=== PATIENT | female | born 1935 | race Caucasian/White ===

== ENCOUNTER 2016-11-02 10:38 | Emergency (ER) | payer MEDICARE ==
--- NOTE | 2016-11-02 12:16 | RAD ---
Indication: LEFT ilium intratrochanteric tenderness post fall. Difficulty bearing weight. Comparison: October 23, 2016 CT. Technique: AP pelvis and AP and frog-leg lateral views LEFT hip. Report: The LEFT hip is normally located and demonstrates mild osteophytosis and superior joint space narrowing. Mildly impacted subcapital fracture of the LEFT femoral neck. Negative for pelvic fracture or joint diastases. Prominence of soft tissues surrounding the LEFT hip suggest presence of a joint effusion. 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 IMPRESSION: Mildly impacted subcapital fracture of the LEFT femoral neck.
[2016-11-02] MEDS ORDERED: HYDROcodone/ACETAMIN 5-325 MG* 1 TAB PO ONE (12:55)
[2016-11-02 13:02] VITALS: BP 94/60
--- NOTE | 2016-11-02 15:39 | UC ---
Sofia Hartley Claudia, scribed for Oma Tobin DO on 11/02/16 at 1126 . Hip/Pelvis Pain - HPI Summary HPI Summary: 81 year old female presents to the ED with left hip pain post mechanical fall. Pt notes she slipped off her her seat pillow and fell onto the floor with her left side yesterday am. She notes that her hip pain began post accident. She denies any other pain including knee pain or any pain to the upper leg. She admits to the pain as initially an 8-9/10. Pt also notes that the pain is aggravated with movement. Pt denies CP, SOB, dysuria, nausea, fever, chills and nausea. - History Of Current Complaint Stated Complaint: HIP INJURY Time Seen by Provider: 11/02/16 11:19 Hx Obtained From: Patient Onset/Duration: Sudden Onset - post fall yesterday am, Still Present Timing: Constant Severity Initially: Severe Severity Currently: Moderate Location: Discrete At: - left hip Character Of Pain: Aching Aggravating Factor(s): Nothing Alleviating Factor(s): Nothing Associated Signs And Symptoms: Positive: Other - left hip pain. Negative: Fever , Weakness, Dizziness, Syncope, Abdominal Pain, Knee Pain - Allergies/Home Medications Allergies/Adverse Reactions: Allergies Allergy/AdvReac Type Severity Reaction Status Date / Time Penicillins [PCN] Allergy Severe Anaphylatic Verified 11/02/16 13:51 Shock PMH/Surg Hx/FS Hx/Imm Hx Previously Healthy: Yes Endocrine History Of: Reports: Thyroid Disease - hypo Denies: Diabetes Cardiovascular History Of: Reports: Hypertension Denies: Cardiac Disorders, Pacemaker/ICD Respiratory History Of: Denies: COPD, Asthma GI/ History Of: Denies: Ulcer, Renal Disease - Surgical History Surgical History: Yes Surgery Procedure, Year, and Place: R knee surgery 2006. Multiple back surgeries. RT HIP AND RT KNEE REPLACEMENT. Appendectomy. T&A - Family History Known Family History: Negative: Cardiac Disease, Hypertension, Diabetes Family History: FHx of Breast Cancer - Social History Occupation: Retired Lives: Alone Alcohol Use: Weekly Substance Use Type: None Smoking Status (MU): Never Smoked Tobacco Have You Smoked in the Last Year: No - Immunization History Most Recent Influenza Vaccination: Follow up with Dr Garvin Most Recent Tetanus Shot: Follow up with Dr Garvin [phone] Most Recent Pneumonia Vaccination: Follow up with Dr Garvin Review of Systems Constitutional: Negative Skin: Negative Eyes: Negative ENT: Negative Respiratory: Negative Cardiovascular: Negative Gastrointestinal: Negative Genitourinary: Negative Motor: Negative Neurovascular: Negative Musculoskeletal: Other: - left hip pain Neurological: Negative Psychological: Negative All Other Systems Reviewed And Are Negative: Yes Physical Exam Triage Information Reviewed: Yes Appearance: Well-Appearing, No Pain Distress, Well-Nourished Vital Signs: Initial Vital Signs Temp 97.1 F 11/02/16 11:12 Pulse 82 11/02/16 11:12 Resp 16 11/02/16 11:12 BP 81/53 11/02/16 11:12 Pulse Ox 96 11/02/16 11:12 Vital Signs Reviewed: Yes Eyes: Positive: Conjunctiva Clear. Negative: Conjunctiva Inflamed ENT Exam: Normal ENT: Positive: Hearing grossly normal. Negative: Muffled/hoarse voice Neck exam: Normal Neck: Positive: Supple, Nontender Respiratory Exam: Normal Respiratory: Positive: Lungs clear, Normal breath sounds, No respiratory distress, No accessory muscle use Cardiovascular Exam: Normal Cardiovascular: Positive: RRR, No Murmur Abdominal Exam: Normal Abdomen Description: Positive: Nontender, Soft. Negative: Distended, Guarding Musculoskeletal: Positive: Other: - tender at left greater trochanter, iliac crest Neurological Exam: Normal Neurological: Positive: Alert, Muscle Tone Normal Psychological Exam: Normal Psychological: Positive: Age Appropriate Behavior Skin Exam: Normal Diagnostics - Radiology HIP XRAY Xray Interpretation: Positive (See Comments) - MILDLY IMPACTED SUBCAPITAL FRACTURE OF THE LEFT FEMORAL NECK Radiology Interpretation Completed By: Radiologist Hip Injury Course/Dx - Differential Dx/Diagnosis Differential Diagnosis/HQI/PQRI: Contusion, Fracture, Sprain, Strain Provider Diagnoses: hip fx Discharge - Discharge Plan Condition: Stable Disposition: [facility] Referrals: Ruben Garvin MD [Primary Care Provider] - The documentation as recorded by the Sofia hastings Claudia accurately reflects the service I personally performed and the decisions made by , Oma Tobin DO.
== END 2016-11-02 13:19 | disposition short-term general hospital (02) ==
LOC: UCEAST 10:38
DX: S72.012A Unspecified intracapsular fracture of left femur, initial encounter for closed fracture (principal); W07.XXXA Fall from chair, initial encounter; Y93.9 Activity, unspecified; Y92.9 Unspecified place or not applicable; Z88.0 Allergy status to penicillin; Z96.641 Presence of right artificial hip joint; Z96.651 Presence of right artificial knee joint
CPT/HCPCS: 99202; G0463

== ENCOUNTER 2016-11-02 13:48 | Inpatient (IN) | payer MEDICARE ==
[2016-11-02] MEDS ORDERED: NS 0.9% 1000 ML* 1,000 ML IV ONE (14:11)
[2016-11-02] MEDS ORDERED: Morphine INJ* 4 MG/ML 1 ML CARPUJECT IV ONE (14:11)
[2016-11-02] MEDS ORDERED: Ondansetron INJ* 2 MG/ML VIAL IV ONE (14:11)
[2016-11-02 14:30] LABS: Hematocrit 33 % (35-47); Mean Corpuscular HGB Conc 30 g/dl (31-36); Mean Corpuscular Hemoglobin 23 pg (27-31); Mean Corpuscular Volume 76 fL (80-97); Mean Platelet Volume 7 um3 (7.4-10.4); Red Blood Count 4.42 10^6/ul (4.0-5.4); Red Cell Distribution Width 15 % (10.5-15)
[2016-11-02 14:31] LABS: Comments Flag Yes
[2016-11-02 14:45] LABS: Albumin 3.5 g/dL (3.2-5.2); BUN/Creatinine Ratio 24.5 (8-20); Calcium 8.6 mg/dL (8.6-10.3); EGFR African American 73.1 (>60); EGFR Non-African American 56.9 (>60); Globulin 2.8 g/dL (2-4); Total Bilirubin 0.8 mg/dL (0.2-1.0); Total Protein 6.3 g/dL (6.4-8.9)
--- NOTE | 2016-11-02 14:49 | ED ---
Minal Hartley Matthew, scribed for Al Cosme MD on 11/02/16 at 1421 . Lower Extremity - HPI Summary HPI Summary: An 81 y/o female presents to the ED with left hip pain since yesterday s/p mechanical fall. The pain is rated 8/10 in severity. The patient states that she slipped off of her seat pillow, and fell onto the floor. The pain is worse with movement of the left leg. The patient was seen at [facility] with a left hip fracture, and transferred to [facility]. She was able to ambulate minimally today in order to use the restroom. The patient takes a baby aspiring daily. She last ate breakfast at 07:30 this morning. - History of Current Complaint Chief Complaint: EDExtremityLower Stated Complaint: LEFT HIP PAIN, COMMING FROM [facility] Time Seen by Provider: 11/02/16 14:01 Hx Obtained From: Patient Mechanism Of Injury: Fall From Height Of: - sitting Onset of Pain: Immediate Onset/Duration: Still Present Severity Initially: Moderate Severity Currently: Moderate Pain Intensity: 8 Pain Scale Used: 0-10 Numeric Timing: Constant Location: Is Discrete @ - left hip Associated Signs And Symptoms: Negative: Fever, Syncope, Abdominal Pain, Knee Pain Aggravating Factor(s): Ambulation, Movement Alleviating Factor(s): Nothing - Allergies/Home Medications Allergies/Adverse Reactions: Allergies Allergy/AdvReac Type Severity Reaction Status Date / Time Penicillins [PCN] Allergy Severe Anaphylatic Verified 11/02/16 13:51 Shock PMH/Surg Hx/FS Hx/Imm Hx Endocrine/Hematology History: Reports: Hx Thyroid Disease - hypo Denies: Hx Diabetes Cardiovascular History: Reports: Hx Hypertension Denies: Hx Pacemaker/ICD Respiratory History: Denies: Hx Asthma, Hx Chronic Obstructive Pulmonary Disease (COPD) GI History: Denies: Hx Ulcer History: Denies: Hx Renal Disease Musculoskeletal History: Reports: Hx Arthritis Sensory History: Reports: Hx Contacts or Glasses Denies: Hx Hearing Aid Opthamlomology History: Reports: Hx Contacts or Glasses Psychiatric History: Denies: Hx Panic Disorder - Cancer History Hx Chemotherapy: No Hx Radiation Therapy: No - Surgical History Surgery Procedure, Year, and Place: R knee surgery 2006. Multiple back surgeries. RT HIP AND RT KNEE REPLACEMENT. Appendectomy. 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, LT LEG Denies: Hx Hepatitis, Hx Human Immunodeficiency Virus (HIV), Traveled Outside the [place] in Last 30 Days - Family History Known Family History: Negative: Cardiac Disease, Hypertension, Diabetes Family History: FHx of breast CA - mother - Social History Alcohol Use: Weekly Substance Use Type: Reports: None Smoking Status (MU): Never Smoked Tobacco Have You Smoked in the Last Year: No Review of Systems Constitutional: Negative Negative: Fever, Chills Eyes: Negative ENT: Negative Cardiovascular: Negative Negative: Chest Pain Respiratory: Negative Negative: Shortness Of Breath Gastrointestinal: Negative Negative: Nausea Genitourinary: Negative Positive: Myalgia - Left hip pain Skin: Negative Neurological: Negative Psychological: Normal All Other Systems Reviewed And Are Negative: Yes Physical Exam - Summary Physical Exam Summary: The patient is well-nourished in no acute distress and in no acute pain. The skin is warm and dry and skin color reflects adequate perfusion. HEENT: The head is normocephalic and atraumatic. The pupils are equal and reactive. The conjunctivae are clear and without drainage. Nares are patent and without drainage. Mouth reveals dry mucous membranes and the throat is without erythema and exudate. The external ears are intact. The ear canals are patent and without drainage. The tympanic membranes are intact. Neck is supple with full range of motion and non-tender. There are no carotid bruits. There is no neck vein distension. Respiratory: Chest is non-tender. Lungs are clear to auscultation and breath sounds are symmetrical and equal. Cardiovascular: Hear is regular rate and rhythm. There is no murmur or rub auscultated. There is no peripheral edema and pulses are symmetrical and equal. Abdomen: The abdomen is soft and non-tender. There are normal bowel sounds heard in all four quadrants and there is no organomegaly palpated. Musculoskeletal: There is no back pain noted. The patient has tenderness of the left hip with 2+ pulses distally. Legs are equal in length. No external rotation noted. There is good capillary refill. There is no peripheral edema or calf tenderness elicited. The patient has dressing below the knee. Neurological: Patient is alert and oriented to person, place and time. The patient has symmetrical motor strength in all four extremities. Cranial nerves are grossly intact. Deep tendon reflexes are symmetrical and equal in all four extremities. Psychiatric: The patient has an appropriate affect and does not exhibit any anxiety or depression. Triage Information Reviewed: Yes Vital Signs On Initial Exam: Initial Vitals Temp Pulse Resp BP Pulse Ox 99.2 F 71 18 126/61 92 11/02/16 13:51 11/02/16 13:51 11/02/16 13:51 11/02/16 13:51 11/02/16 13:51 Vital Signs Reviewed: Yes Diagnostics - Vital Signs Vital Signs Temp Pulse Resp BP Pulse Ox 11/02/16 13:51 99.2 F 71 18 126/61 92 - Laboratory Lab Results: Lab Results 11/02/16 11/02/16 11/02/16 Range/Units 14:22 14:22 14:22 WBC 12.0 H (3.5-10.8) 10^3/ul RBC 4.42 (4.0-5.4) 10^6/ul Hgb 10.0 L (12.0-16.0) g/dl Hct 33 L (35-47) % MCV 76 L (80-97) fL MCH 23 L (27-31) pg MCHC 30 L (31-36) g/dl RDW 15 (10.5-15) % Plt Count 160 (150-450) 10^3/ul MPV 7 L (7.4-10.4) um3 Neut % (Auto) 77.3 (38-83) % Lymph % (Auto) 10.8 L (25-47) % Randolph % (Auto) 9.2 H (1-9) % Eos % (Auto) 2.1 (0-6) % Baso % (Auto) 0.6 (0-2) % Absolute Neuts (auto) 9.3 H (1.5-7.7) 10^3/ul Absolute Lymphs (auto) 1.3 (1.0-4.8) 10^3/ul Absolute Monos (auto) 1.1 H (0-0.8) 10^3/ul Absolute Eos (auto) 0.3 (0-0.6) 10^3/ul Absolute Basos (auto) 0.1 (0-0.2) 10^3/ul Absolute Nucleated RBC 0.01 10^3/ul Nucleated RBC % 0 INR (Anticoag Therapy) 1.15 H (0.89-1.11) APTT 28.9 (26.0-36.3) seconds Sodium 135 (133-145) mmol/L Potassium Pending Chloride 92 L (101-111) mmol/L Carbon Dioxide 36 H (22-32) mmol/L Anion Gap Pending BUN 23 (6-24) mg/dL Creatinine 0.94 (0.51-0.95) mg/dL Est GFR ( Amer) 73.1 (>60) Est GFR (Non-Af Amer) 56.9 (>60) BUN/Creatinine Ratio 24.5 H (8-20) Glucose 96 (70-100) mg/dL Lactic Acid (0.5-2.0) mmol/L Calcium 8.6 (8.6-10.3) mg/dL Total Bilirubin 0.80 (0.2-1.0) mg/dL AST 22 (13-39) U/L ALT 13 (7-52) U/L Alkaline Phosphatase 89 (34-104) U/L Troponin I Pending Total Protein 6.3 L (6.4-8.9) g/dL Albumin 3.5 (3.2-5.2) g/dL Globulin 2.8 (2-4) g/dL Albumin/Globulin Ratio 1.3 (1-3) Blood Type Antibody Screen 11/02/16 11/02/16 Range/Units 14:22 14:22 WBC (3.5-10.8) 10^3/ul RBC (4.0-5.4) 10^6/ul Hgb (12.0-16.0) g/dl Hct (35-47) % MCV (80-97) fL MCH (27-31) pg MCHC (31-36) g/dl RDW (10.5-15) % Plt Count (150-450) 10^3/ul MPV (7.4-10.4) um3 Neut % (Auto) (38-83) % Lymph % (Auto) (25-47) % Randolph % (Auto) (1-9) % Eos % (Auto) (0-6) % Baso % (Auto) (0-2) % Absolute Neuts (auto) (1.5-7.7) 10^3/ul Absolute Lymphs (auto) (1.0-4.8) 10^3/ul Absolute Monos (auto) (0-0.8) 10^3/ul Absolute Eos (auto) (0-0.6) 10^3/ul Absolute Basos (auto) (0-0.2) 10^3/ul Absolute Nucleated RBC 10^3/ul Nucleated RBC % INR (Anticoag Therapy) (0.89-1.11) APTT (26.0-36.3) seconds Sodium (133-145) mmol/L Potassium Chloride (101-111) mmol/L Carbon Dioxide (22-32) mmol/L Anion Gap BUN (6-24) mg/dL Creatinine (0.51-0.95) mg/dL Est GFR ( Amer) (>60) Est GFR (Non-Af Amer) (>60) BUN/Creatinine Ratio (8-20) Glucose (70-100) mg/dL Lactic Acid 1.4 (0.5-2.0) mmol/L Calcium (8.6-10.3) mg/dL Total Bilirubin (0.2-1.0) mg/dL AST (13-39) U/L ALT (7-52) U/L Alkaline Phosphatase (34-104) U/L Troponin I Total Protein (6.4-8.9) g/dL Albumin (3.2-5.2) g/dL Globulin (2-4) g/dL Albumin/Globulin Ratio (1-3) Blood Type O Positive Antibody Screen Pending Result Diagrams: 11/02/16 14:22 11/02/16 14:22 Lab Statement: Any lab studies that have been ordered have been reviewed, and results considered in the medical decision making process. Lower Extremity Course/Dx - Course Assessment/Plan: An 81 y/o female presents to the ED with left hip pain since yesterday s/p mechanical fall. The patient was seen at [facility] with a left hip fracture, and transferred to [facility]. Labs were reviewed. Discussed the case with Dr. Mike who recommended hospital admission and shell evaluate the patient tonight or tomorrow. Discussed the case with Dr. Parada who will admit the patient into his services. - Diagnoses Differential Diagnosis/HQI/PQRI: Positive: Contusion, Dislocation, Fracture ( Closed) Provider Diagnoses: Hip fracture, left - Physician Notifications Discussed Care of Patient With: Dr. Mike (Ortho) at 14:24 -- Notified of patient's history and recommneds hospitalist admission until she can see the patient tonight or tomorrow. Dr. Parada (Hospitalist) at 14:28 -- Notified of patient's history and will admit the patient into his services. Discharge - Discharge Plan Condition: Stable Disposition: ADMITTED TO [facility] Referrals: Ruben Garvin MD [Primary Care Provider] - The documentation as recorded by the Minal hastings Matthew accurately reflects the service I personally performed and the decisions made by me, Al Cosme MD.
[2016-11-02 14:51] LABS: Potassium 2.4 mmol/L (3.5-5.0); Troponin I 0.3 ng/mL (<0.04)
[2016-11-02] MEDS ORDERED: HYDROcodone/ACETAMIN 5-325 MG* 1 TAB PO PRN (15:07)
[2016-11-02] MEDS ORDERED: fentaNYL* 50 MCG/ML 2 ML VIAL (100 MCG VIAL) IV SLOW PU PRN (15:07)
[2016-11-02] MEDS ORDERED: Potassium Chlor TAB* 20 MEQ TAB.ER PO ONE (15:14)
[2016-11-02] MEDS ORDERED: Ondansetron INJ* 2 MG/ML VIAL IV PRN (15:19)
[2016-11-02 15:38] LABS: Magnesium 2.3 mg/dL (1.9-2.7)
[2016-11-02 15:51] LABS: TSH (Thyroid Stimulating Horm) 9.28 mcIU/mL (0.34-5.60)
[2016-11-02] MEDS: NS 0.9% 1000 ML* 1,000 ML IV SCH (17:46)
[2016-11-02] MEDS: Aspirin Low Dose CHEW TAB* 81 MG PO SCH (18:14)
[2016-11-02] MEDS: KCL 20 MEQ/100 ML IVPREMIX* 20 MEQ/100 ML BAG IV SCH (18:15)
[2016-11-02] MEDS: Gabapentin CAP(*) 300 MG PO SCH (21:42)
[2016-11-02] MEDS ORDERED: Heparin VIAL(*) 5000 UNITS/ML VIAL (FIVE THOUSAND) SUBCUT SCH (22:00)
[2016-11-02] MEDS: HYDROcodone/ACETAMIN 5-325 MG* 1 TAB PO PRN (22:05)
[2016-11-03] MEDS ORDERED: KCL 20 MEQ/100 ML IVPREMIX* 20 MEQ/100 ML BAG ONE ×2 (02:09→04:36)
[2016-11-03] MEDS: KCL 20 MEQ/100 ML IVPREMIX* 20 MEQ/100 ML BAG IV SCH ×2 (02:12→04:39)
--- NOTE | 2016-11-03 04:38 | HP ---
HISTORY AND PHYSICAL: DATE OF ADMISSION: 11/02/16 PRIMARY CARE PROVIDER: Dr. Garvin. CHIEF COMPLAINT: Fall and hip pain. HISTORY OF PRESENT ILLNESS: Ms. Sorensen is an 81-year-old female who has a history of what sounds to be moderate dementia, who presents to the emergency room after being seen at [facility] where she was identified to have a left hip fracture. The patient states that on the day prior to admission, she was in her kitchen going to sit on her kitchen chair when she fell. The patient describes her kitchen chair as having a pad on the seat. She states that one of set of the ties was ripped and often times she finds that the pad is somewhat off the chair. Ordinarily, she checks to make sure that the pad is on the chair seat completely; however, she failed to do so yesterday. When she sat down, she ended up on the floor. The total duration of the time on the floor was not completely clear. The patient's family believes that a maintenance planning clerk for the apartment building found her and helped to get her back up to the kitchen chair. The patient's daughter then arrived to her house and wanted to make sure that the patient was able to ambulate without difficulty prior to leaving for the night. Of note, the patient lives alone. The patient was able to get up with the walker and ambulate to the bathroom and to her lift chair where she planned to spend the night. The patient's daughter did want her to be seen in the emergency room; however, the patient refused at that time. On the morning of 11/02/16, the patient daughter re- presented to her apartment and at this time was able to convince the patient to be seen at [facility]. At [facility], the patient was found to have a mildly impacted left subcapital fracture of the left femoral neck. At that point, the patient was transferred to the emergency room for evaluation. In the ER, the patient does feel somewhat groggy. She did receive Wimberley at [facility]. The patient denies any pain at this time. She is somewhat upset that I asked her to review what happened saying "is it not in the medical record?" The patient's daughter does provide a significant amount of the history regarding the fall. PAST MEDICAL HISTORY: 1. Severe osteoarthritis. 2. Hypokalemia. 3. Bilateral lower extremity wounds. 4. Peripheral arterial disease is identified on CTA abdomen, aorta, and runoff. 5. Hypertension. 6. Hypothyroidism. PAST SURGICAL HISTORY: 1. Right knee replacement. 2. Right hip replacement. MEDICATIONS: 1. Potassium chloride 20 mEq p.o. daily. 2. Gabapentin 600 mg p.o. q.a.m., 900 mg p.o. q.p.m. 3. Wimber[place] 10/325 one to two tabs p.o. q.6 hours p.r.n. pain. 4. Synthroid 125 mcg p.o. daily. ALLERGIES: PENICILLIN. FAMILY HISTORY: Mom at age of 81 from breast cancer. Dad at age of 97 of old age. SOCIAL HISTORY: The patient is a lifelong nonsmoker. She does not drink alcohol. 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 She is . She has 6 children. Her daughter, Yelena, and son, Duc, are her healthcare proxies. REVIEW OF SYSTEMS: The patient denies any fevers, chills, or anorexia. No chest pain. No palpitations. No lower extremity edema (this is markedly improved from prior). No cough. No shortness of breath. No nausea, vomiting, abdominal pain, constipation, or diarrhea. No hematochezia. No hematuria, no dysuria. No focal weakness or sensory loss. No sudden change in vision. No dysphagia. She complains of diffuse joint aches related to her severe osteoarthritis. She does have bilateral lower extremity wounds. She is being seen in the wound clinic for these. There have been signs of infection of these wounds. No anxiety or depression. PHYSICAL EXAMINATION GENERAL: The patient is a well-developed, elderly female, sitting in the stretcher, in no acute distress. VITAL SIGNS: Blood pressure 126/61, pulse 71, respirations 18, temp 99.2, O2 saturation is 92% on room air. HEENT: Pupils are equal, they are round. Extraocular muscles are intact. Oropharynx is clear. Oral mucosa is dry. There is no submandibular, cervical, or supraclavicular adenopathy. Thyroid is not enlarged. No thyroid nodules are noted. PULMONARY: Lungs reveal few bibasilar crackles, otherwise, clear. CARDIAC: Normal S1, S2. Heart rate sounds to be irregularly irregular, though on EKG appears to be sinus rhythm with frequent premature complexes. The patient has no lower extremity edema. ABDOMEN: Bowel sounds present. Abdomen is soft, nontender, nondistended. MUSCULOSKELETAL: There is no cyanosis or clubbing of the digits. There is full active range of motion of the upper extremities. Lower extremity range of motion is not tested due to the hip fracture. NEURO: Cranial nerves II through XII appeared to be grossly intact. Sensation is intact to light touch throughout. Strength is 5/5 in the upper extremities. Lower extremity strength is not tested. PSYCH: The patient is alert. She is oriented to place and situation. SKIN: Warm and dry. There are no rashes. Wounds on the right lower extremity are examined by myself. There are shallow ulcerations of the anterior and lateral right lower leg. There is baseline erythema of the lower leg, however, no increased erythema surrounding the wounds. This area is not hot to touch. There is no drainage. There are collagen dressings overlying the wounds. DIAGNOSTIC STUDIES/LAB DATA: WBC is 12.0, hemoglobin 10.0, hematocrit 33, platelets 160. INR 1.15. Sodium 135, potassium 2.4, chloride 92, CO2 36, BUN 33, creatinine 0.94, glucose 96, lactic acid 1.4, calcium 8.6, magnesium 2.3. Bilirubin 0.8, AST 22, ALT 13, alk phos 89. Troponin 0.3. CPK pending. Albumin 3.5. TSH pending. EKG reveals normal sinus rhythm with frequent PACs and PVCs. Baseline is difficult to interpret, but I do not see any acute ST-T wave abnormalities. Left hip x-ray and pelvis, mildly impacted subcapital fracture of the left femoral neck. ASSESSMENT AND PLAN: Ms. Sorensen is an 81-year-old female with a history of severe osteoarthritis, hypothyroidism, chronic pain, who presents to the emergency room after being referred by [facility] for left a hip fracture. 1. Left hip fracture. The cause of the hip fracture is mechanical fall out of kitchen chair. The patient was down on the ground for some period of time following this fall. The patient is not the best historian. The patient's daughter does relate to me that she has had several falls out of kitchen chair since she was started on gabapentin and the dose increased. At this point, Dr. Mike has been consulted and will be seeing the patient tomorrow morning to discuss surgical options. The patient will receive subcu heparin tonight for DVT prophylaxis and this will be discontinued in anticipation of surgery tomorrow morning. In terms of the patient's cardiac risk, she does have elevated troponin at this time. I am in the process of working this up. The patient does not complain of any chest pain or shortness of breath and has no other clear anginal symptoms. The patient does not have a history of coronary disease previously. I will go ahead and get a followup troponin and EKG as well as echocardiogram tomorrow morning. The patient's revised cardiac risk index reveals a 6.6% risk of major cardiac event. The patient will need to proceed with surgery for the pain control and to regain the ability to ambulate. Other than echocardiogram, I do not request any other cardiac testing prior to proceeding with surgery. Again, this will, however, depend on the followup troponin obtained later today. 2. Elevated troponin. The patient's troponin is mildly elevated at 0.3. Again , she does not complain of any chest pain. The patient does not have a history of coronary artery disease. I do question if this may be related to some rhabdomyolysis. A CPK is pending at this time. If the CPK is not elevated, then I suspect this is more likely demand ischemia. The patient's EKG does have any acute ST-T wave abnormalities. I will get a followup EKG with a next troponin draw. Additionally, the patient will undergo transthoracic echocardiogram tomorrow prior to surgery. I will start the patient on aspirin 81 mg p.o. daily. The patient was supposed to be taking this at home, however, she has been on this for the last 1 month or so. 3. Hypokalemia. The patient's potassium is markedly low at 2.4. She is on a potassium supplement daily; however, this appears to be not enough. The patient will receive 60 mEq of IV potassium as well as 40 mEq of oral potassium. She will be monitored on telemetry. Followup BMP will be obtained tomorrow morning. 4. Leukocytosis. The patient has a mild leukocytosis of 12,000. I suspect this is a stress reaction. The patient gives no history of recent infection. We will monitor for clear signs of infection including her temp and a followup white blood cell count tomorrow. 5. Chronic pain. The patient will continue with p.r.n. Wimberley. I will, however , reduce her gabapentin dose to 300 mg twice daily. If she appears to tolerate this, then we can go back up on the dose; however, the patient's daughter does note that she has had more falls since the dose has been escalated. 6. Hypothyroidism. TSH is pending at this time. She will be maintained on her usual dose of Synthroid. Of note, the patient's daughter states that she did not take her Synthroid this morning. Her daughter does check her pill box and ensure that she takes her medications as prescribed. So, it sounds as if she is ordinarily taking this medication. 7. DVT prophylaxis. According to Adult Thrombosis Prophylaxis Risk Factor Assessment Guide, the patient has a total risk factor score of 8, making her the highest risk. Again, she will be placed on heparin 5000 units subcutaneous q.8 hours with her last dose being this evening prior to anticipated surgery tomorrow afternoon. 8. The patient is a full code. Again, she indicates that her son, Duc, and daughter, Yelena, are her healthcare proxies. TIME SPENT: Sixty-five minutes was spent admitting this patient. CC: Dr. Garvin [id number]/[facility] #: [id number] MARÍA
[2016-11-03] MEDS: Levothyroxine TAB* 125 MCG TAB PO SCH (05:01)
[2016-11-03] MEDS: Gabapentin CAP(*) 300 MG PO SCH ×2 (08:02→20:52)
[2016-11-03] MEDS: HYDROcodone/ACETAMIN 5-325 MG* 1 TAB PO PRN ×2 (08:02→23:37)
[2016-11-03 08:09] LABS: Hematocrit 31 % (35-47); Hemoglobin 9.6 g/dl (12.0-16.0); Mean Corpuscular HGB Conc 31 g/dl (31-36); Mean Corpuscular Hemoglobin 23 pg (27-31); Mean Corpuscular Volume 76 fL (80-97); Mean Platelet Volume 8 um3 (7.4-10.4); Red Cell Distribution Width 16 % (10.5-15); White Blood Count 9.1 10^3/ul (3.5-10.8)
[2016-11-03 08:17] LABS: Calcium 8.3 mg/dL (8.6-10.3); EGFR African American 92.1 (>60); EGFR Non-African American 71.6 (>60); Potassium 3.4 mmol/L (3.5-5.0)
--- NOTE | 2016-11-03 09:28 | ECHO ---
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 Technical Comments: The study was technically limited due to the patient's inability to lay in the left lateral decubitus position. Completed at 0848. Left Ventricle: The left ventricular chamber size is decreased. Mild to moderate concentric left ventricular hypertrophy is observed. Global left ventricular wall motion and contractility are within normal limits. There is normal left ventricular systolic function. The estimated ejection fraction is 55-60%. Normal left ventricular diastolic filling is observed. Left Atrium: The left atrial chamber size is normal. Right Ventricle: The right ventricular cavity size is normal. Right Atrium: The right atrium is mildly dilated. Aortic Valve: The aortic valve is trileaflet. The aortic valve leaflets are mildly thickened. Systolic excursion of the aortic valve cusps is reduced. There is no evidence of aortic regurgitation. There is mild aortic stenosis. The highest aortic valve velocity was obtained with the standard probe from the A5C view. Mitral Valve: Moderate mitral annular calcification present. The mitral valve leaflets are mildly thickened. There is trace to mild mitral regurgitation. There is no evidence of mitral stenosis. The pressure half time of the mitral valve is 55 msec. The mitral valve area, by pressure half time, is calculated at 4 cm2. Tricuspid Valve: The tricuspid valve leaflets are normal. There is moderate to severe tricuspid regurgitation. The tricuspid regurgitant jet is directed toward the septum. There is evidence of mild pulmonary hypertension. There is no tricuspid stenosis. Pulmonic Valve: The pulmonic valve appears normal. There is no evidence of pulmonic regurgitation. There is no pulmonic stenosis. Pericardium: The pericardium appears normal. Aorta: There is no dilatation of the ascending aorta. There is no dilatation of the aortic arch. There is no dilation of the aortic root. Pulmonary Artery: The main pulmonary artery appears normal. Venous: The inferior vena cava appears normal in size. There is an approximate 50% respiratory change in the inferior vena cava dimension. Summary: There are no significant changes when compared to the previous study done on 01/09/16 Conclusions Mild to moderate concentric left ventricular hypertrophy is observed. Global left ventricular wall motion and contractility are within normal limits. There is normal left ventricular systolic function. The estimated ejection fraction is 55-60%. The aortic valve leaflets are mildly thickened. There is no evidence of aortic regurgitation. There is mild aortic stenosis. There is trace to mild mitral regurgitation. There is moderate to severe tricuspid regurgitation. There is evidence of mild pulmonary hypertension. The pericardium appears normal. There are no significant changes when compared to the previous study done on 01/09/16 Measurements Name Value Normal Range RVIDd (AP) 2D 2.4 cm (0.9 - 2.6) RVDdMajor (2D) 3.7 cm (2.2 - 4.4) RAd ISD 4CH 5.9 cm (3.4 - 4.9) RA (A4C)W 4.8 cm (2.9 - 4.6) IVSd (2D) 1.6 cm (0.6 - 1) LVPWd (2D) 1.4 cm (0.6 - 1) LVIDd (2D) 3.1 cm (3.6 - 5.4) LVIDs (2D) 2 cm - LV FS (2D) 35 % (25 - 45) Aortic Annulus 1.6 cm (1.4 - 2.6) Ao root diameter (2D) 3.2 cm (2.1 - 3.5) Ascending Ao 3.4 cm (2.1 - 3.4) Aortic arch 2.2 cm (1.8 - 3.4) Descending Ao 0.3 cm - LA dimension (AP) 2D 2.8 cm (2.3 - 3.8) LAd ISD 4CH 6.5 cm (2.9 - 5.3) LA ISD 4CH W 4 cm (2.5 - 4.5) Name Value Normal Range LA ESV SP 4CH (A/L) 82 ml - LA ESV SP 2CH (A/L) 38 ml - LA ESV BP (A/L) 61 ml - LA ESV BP (A/L) index 42.51 ml/m2 - LA ESV SP 4CH (MOD) 76 ml - LA ESV SP 2CH (MOD) 37 ml - Name Value Normal Range MV E-wave Vmax 1.2 m/sec - MV deceleration time 195 msec - MV A-wave Vmax 1.1 m/sec - MV E:A ratio 1.08 ratio - LV septal e' Vmax 0.07 m/sec - LV lateral e' Vmax 0.11 m/sec - LV E:e' septal ratio 17.14 ratio - LV E:e' lateral ratio 10.97 ratio - Name Value Normal Range AV Vmax 1.8 m/sec - AV VTI 40.8 cm - AV peak gradient 12.31 mmHg - AV mean gradient 5.67 mmHg - LVOT diameter 1.5 cm - LVOT Vmax 1.1 m/sec - LVOT VTI 26.6 cm - LVOT peak gradient 4.83 mmHg - LVOT mean gradient 2.22 mmHg - SV LVOT 45 ml - VIKY (planimetry) 1.6 cm2 - VIKY (continuity Vmax) 1.3 cm2 - VIKY (continuity VTI) 1.2 cm2 - Name Value Normal Range MV PHT 55 msec - MVA (PHT) 4 cm2 - Name Value Normal Range TR Vmax 3 m/sec - TR peak gradient 37 mmHg - RAP 8 mmHg - RVSP 45 mmHg - IVC diameter 2 cm - Name Value Normal Range PV Vmax 0.6 m/sec - PV peak gradient 1.31 mmHg -
--- NOTE | 2016-11-03 10:06 | CONS ---
ORTHOPEDIC CONSULTATION NOTE: DATE OF CONSULT: 11/03/16 CHIEF COMPLAINT: Left hip pain. HISTORY OF PRESENT ILLNESS: Ms. Sorensen is an 81-year-old female who was in her apartment when she had a fall while trying to sit down on a chair. This occurred on 11/01/16. She fell on to her left side and immediately had some 6/ 10 hip pain. A maintenance truck driver in her apartment building helped her stand and she was able to get back to her lift chair. She refused to go to the emergency room at her daughter's request, but because of increased pain and difficulty weightbearing, she did go to [facility] on 11/02/16. Radiographs showed impacted subcapital fracture of the left femoral neck and she was transferred to the emergency room. Right now, she reports she has 10/10 occasional sharp pain in the left groin with any movement of the hip. Immobilization and pain medication decreases the pain. PAST MEDICAL HISTORY: Osteoarthritis, hypokalemia, bilateral tibial wounds due to peripheral arterial disease, hypertension, hypothyroid. PAST SURGICAL HISTORY: Right total hip arthroplasty, right total knee arthroplasty. MEDICATIONS: 1. Potassium 20 mEq p.o. daily. 2. Gabapentin 600 mg q.a.m., 900 mg q.p.m. 3. [place] 10/325 as needed for pain. 4. Synthroid 125 mcg p.o. daily. ALLERGIES: PENICILLIN. FAMILY HISTORY: Maternal breast cancer. SOCIAL HISTORY: The patient normally lives alone and uses a rolling walker to ambulate. No alcohol, tobacco, or recreational drug use. Her daughter, Yelena, and son, Tonny, are her healthcare proxies. REVIEW OF SYSTEMS: Fourteen systems were reviewed with the patient. Positive for left hip pain. Negative for head trauma, headache. Negative for arm pain. Negative for cough, shortness of breath, nausea, vomiting, chest pain, fevers, chills. Otherwise, review of systems is negative or not relevant. PHYSICAL EXAM: Vitals: Temperature 98.6, pulse 92, blood pressure 98/74. General: The patient is a thin female in no apparent distress. Alert and oriented x3 this morning. Pleasant mood and appropriate affect. Accompanied by supportive son and daughter at the bedside. Gait: Not assessed. Lungs: Unlabored breathing. Abdomen: Soft, nontender, nondistended. Extremities: Left lower extremity, the patient has some superficial chronic venous stasis wounds on the tibia. These are dressed sterilely. Demonstrates dorsiflexion and plantar flexion. Less than 3 seconds capillary refill distally , 1+ palpable PT pulse. Any movement of the hip causes severe pain. Thighs soft and compressible. No hyperreflexia. DIAGNOSTIC STUDIES/LABORATORY DATA: Laboratory values from 11/02/16 show white blood cells of 12, hematocrit 33, platelets 160, no left shift. Coags: INR 1.15. 11/02/16 lab shows sodium 135, potassium 2.4, chloride 92, BUN and creatinine 23 and 0.94. Troponin 0.3 and 0.2. Total protein 6.3. Radiographs: Multiple views of the left hip were reviewed on the PACS system from 11/02/16. These show a valgus impacted minimally displaced femoral neck fracture on the left. ASSESSMENT AND PLAN: Ms. Sorensen is an 81-year-old female, status post fall on 11/01/16 in her home. This was fall from a standing height. She has a minimally displaced subcapital valgus impacted left femoral neck fracture. Operative and nonoperative treatment options were explained to the patient and her family. They wound like to proceed with operative fixation of this fracture , so she may ambulate again. At this point, I would recommend cannulated screw fixation. They understand if the fracture displaces further, she could require a hemiarthroplasty versus total hip arthroplasty. For now, she should be n.p.o. We will plan approximately at 14:30 ORIF of the left hip fracture with cannulated screws. She will be n.p.o. and have p.r.n. analgesia. We do need immediate blood work to recheck the potassium and troponin. I have asked that she have a Byrd catheter placed to limit movement and possible loss of fracture reduction. Risks and benefits of the surgery were discussed with the patient and her family. They would like to proceed. Thank you for this orthopedic consultation. [id number]/[facility] #: [id number] MARÍA
[2016-11-03] MEDS: Aspirin Low Dose CHEW TAB* 81 MG PO SCH (12:02)
[2016-11-03] MEDS ORDERED: Buffered Lidocaine 1% SYR 3ML* 3 ML/SYR SYRINGE ONE (13:56)
[2016-11-03] MEDS ORDERED: Propofol* 10 MG/ML 20 ML BTL IV PUSH ONE (14:18)
[2016-11-03] MEDS ORDERED: Lidocaine 2% PF * 5 ML VIAL ONE (14:18)
[2016-11-03] MEDS ORDERED: fentaNYL* 50 MCG/ML 2 ML VIAL (100 MCG VIAL) ONE ×2 (14:18→16:50)
[2016-11-03] MEDS ORDERED: Clindamycin 900 MG IVPREMIX(* 900 MG/50 ML SDV IV ONE (14:45)
[2016-11-03] MEDS ORDERED: Bupivacaine 0.5% SDV PF* 30 ML VIAL ONE (15:10)
[2016-11-03] MEDS ORDERED: EPHEDrine (Pressors)* 50 MG/ML VIAL ONE (15:18)
--- NOTE | 2016-11-03 16:12 | RAD ---
INDICATION: Left hip fracture operative reduction. COMPARISON: Comparison is made with a prior x-ray study of the left hip from November 02, 2016. TECHNIQUE: 30.3 seconds of intermitted fluoroscopic were provided and an AP view of the pelvis and 3 spot films of the left hip were obtained in the operating room. FINDINGS: The films demonstrate placement of 3 femoral head screws spanning the subcapital fracture of the left femur. The bones are in normal alignment. IMPRESSION: INTRAOPERATIVE CONTROL FILMS. CPT II Codes: 6045F
[2016-11-03] MEDS ORDERED: Ondansetron INJ* 2 MG/ML VIAL IV PRN (16:14)
[2016-11-03] MEDS ORDERED: HYDROcodone/ACETAMIN 5-325 MG* 1 TAB PO PRN (16:14)
[2016-11-03] MEDS: fentaNYL* 50 MCG/ML 2 ML VIAL (100 MCG VIAL) IV PRN ×4 (16:51→17:12)
[2016-11-03] MEDS ORDERED: HYDROcodone/ACETAMIN 5-325 MG* 1 TAB ONE (17:05)
[2016-11-03] MEDS: NS 0.9% 1000 ML* 1,000 ML IV SCH (18:16)
--- NOTE | 2016-11-03 18:25 | PN ---
Subjective Date of Service: 11/03/16 Interval History: Pt is feeling ok post surgery. She denies any pain at this time. No SOB. Objective Active Medications: Acetaminophen/Hydrocodone Bitart (Myrtle 5-325 Tab*) 1 tab PO Q4H PRN PRN Reason: Pain 1-5 Last Admin: 11/03/16 17:05 Dose: 1 tab Acetaminophen/Hydrocodone Bitart (Myrtle 5-325 Tab*) 2 tab PO Q4H PRN PRN Reason: Pain 6-10 Last Admin: 11/03/16 08:02 Dose: 2 tab Acetaminophen/Hydrocodone Bitart (Myrtle 5-325 Tab*) 1 tab PO ONCE PRN PRN Reason: PAIN - MODERATE Stop: 11/03/16 21:14 Aspirin (Aspirin Low Dose Tab*) 81 mg PO DAILY [facility] Last Admin: 11/03/16 12:02 Dose: Not Given Fentanyl Citrate (Fentanyl*) 25 mcg IV SLOW PU Q3H PRN PRN Reason: PAIN Fentanyl Citrate (Fentanyl*) 25 mcg IV Q2M PRN PRN Reason: PAIN - MODERATE Stop: 11/03/16 21:14 Last Admin: 11/03/16 17:12 Dose: 25 mcg Gabapentin (Neurontin Cap(*)) 300 mg PO BID [facility] Last Admin: 11/03/16 08:02 Dose: 300 mg Sodium Chloride (Ns 0.9% 1000 Ml*) 1,000 mls @ 100 mls/hr IV PER RATE [facility] Last Admin: 11/02/16 17:46 Dose: 100 mls/hr Levothyroxine Sodium (Synthroid Tab*) 125 mcg PO DAILY@0600 [facility] Last Admin: 11/03/16 05:01 Dose: 125 mcg Ondansetron HCl (Zofran Inj*) 4 mg IV Q6H PRN PRN Reason: NAUSEA Ondansetron HCl (Zofran Inj*) 4 mg IV ONCE PRN PRN Reason: NAUSEA/VOMITING Stop: 11/03/16 21:15 Vital Signs 11/02/16 11/02/16 11/02/16 18:22 19:40 20:00 Temperature 97.2 F 98.2 F Pulse Rate 81 92 Respiratory 16 18 18 Rate Blood Pressure 119/65 105/63 (mmHg) O2 Sat by Pulse 90 83 Oximetry 11/02/16 11/02/16 11/02/16 21:42 22:05 23:42 Temperature Pulse Rate Respiratory 16 16 16 Rate Blood Pressure (mmHg) O2 Sat by Pulse Oximetry 11/02/16 11/03/16 11/03/16 23:51 00:05 03:48 Temperature 98.6 F 97.1 F Pulse Rate 92 83 78 Respiratory 16 16 16 Rate Blood Pressure 98/74 115/64 (mmHg) O2 Sat by Pulse 94 82 Oximetry 11/03/16 11/03/16 11/03/16 07:20 08:00 08:02 Temperature 97.4 F Pulse Rate 74 Respiratory 16 14 18 Rate Blood Pressure 139/69 (mmHg) O2 Sat by Pulse 98 Oximetry 11/03/16 11/03/16 11/03/16 09:51 11:12 16:13 Temperature 97.9 F 97.7 F Pulse Rate 71 74 Respiratory 14 16 16 Rate Blood Pressure 104/61 148/89 (mmHg) O2 Sat by Pulse 91 99 Oximetry 11/03/16 11/03/16 11/03/16 16:15 16:20 16:24 Temperature Pulse Rate 73 70 72 Respiratory 14 13 13 Rate Blood Pressure 155/87 142/103 145/91 (mmHg) O2 Sat by Pulse 95 92 99 Oximetry 11/03/16 11/03/16 11/03/16 16:29 16:43 16:51 Temperature Pulse Rate 67 69 Respiratory 15 12 14 Rate Blood Pressure 165/90 154/84 (mmHg) O2 Sat by Pulse 100 100 Oximetry 11/03/16 11/03/16 11/03/16 16:56 17:00 17:01 Temperature Pulse Rate 73 Respiratory 12 12 12 Rate Blood Pressure 134/94 (mmHg) O2 Sat by Pulse 95 Oximetry 11/03/16 11/03/16 11/03/16 17:05 17:12 17:13 Temperature 98.2 F Pulse Rate 68 Respiratory 14 12 10 Rate Blood Pressure 137/85 (mmHg) O2 Sat by Pulse 99 Oximetry 11/03/16 17:29 Temperature Pulse Rate 71 Respiratory 16 Rate Blood Pressure 136/81 (mmHg) O2 Sat by Pulse 99 Oximetry Oxygen Devices in Use Now: Nasal Cannula - 3L-99% Appearance: Elderly female lying in bed, NAD Eyes: No Scleral Icterus Ears/Nose/Mouth/Throat: Mucous Membranes Moist Respiratory: Symmetrical Chest Expansion and Respiratory Effort, Clear to Auscultation - anteriorly Cardiovascular: NL Sounds; No Murmurs; No JVD, RRR, No Edema Abdominal: NL Sounds; No Tenderness; No Distention Extremities: No Clubbing, Cyanosis Skin: No Rash or Ulcers, No Nodules or Sclerosis Neurological: - - pleasantly confused, alert Result Diagrams: 11/03/16 07:54 11/03/16 07:54 Additional Lab and Data: Lab Results 11/02/16 11/02/16 11/02/16 Range/Units 14:22 14:22 14:22 WBC 12.0 H (3.5-10.8) 10^3/ul RBC 4.42 (4.0-5.4) 10^6/ul Hgb 10.0 L (12.0-16.0) g/dl Hct 33 L (35-47) % MCV 76 L (80-97) fL MCH 23 L (27-31) pg MCHC 30 L (31-36) g/dl RDW 15 (10.5-15) % Plt Count 160 (150-450) 10^3/ul MPV 7 L (7.4-10.4) um3 Neut % (Auto) 77.3 (38-83) % Lymph % (Auto) 10.8 L (25-47) % Carroll % (Auto) 9.2 H (1-9) % Eos % (Auto) 2.1 (0-6) % Baso % (Auto) 0.6 (0-2) % Absolute Neuts (auto) 9.3 H (1.5-7.7) 10^3/ul Absolute Lymphs (auto) 1.3 (1.0-4.8) 10^3/ul Absolute Monos (auto) 1.1 H (0-0.8) 10^3/ul Absolute Eos (auto) 0.3 (0-0.6) 10^3/ul Absolute Basos (auto) 0.1 (0-0.2) 10^3/ul Absolute Nucleated RBC 0.01 10^3/ul Nucleated RBC % 0 INR (Anticoag Therapy) 1.15 H (0.89-1.11) APTT 28.9 (26.0-36.3) seconds Sodium 135 (133-145) mmol/L Potassium Pending Chloride 92 L (101-111) mmol/L Carbon Dioxide 36 H (22-32) mmol/L Anion Gap Pending BUN 23 (6-24) mg/dL Creatinine 0.94 (0.51-0.95) mg/dL Est GFR ( Amer) 73.1 (>60) Est GFR (Non-Af Amer) 56.9 (>60) BUN/Creatinine Ratio 24.5 H (8-20) Glucose 96 (70-100) mg/dL Lactic Acid (0.5-2.0) mmol/L Calcium 8.6 (8.6-10.3) mg/dL Total Bilirubin 0.80 (0.2-1.0) mg/dL AST 22 (13-39) U/L ALT 13 (7-52) U/L Alkaline Phosphatase 89 (34-104) U/L Troponin I Pending Total Protein 6.3 L (6.4-8.9) g/dL Albumin 3.5 (3.2-5.2) g/dL Globulin 2.8 (2-4) g/dL Albumin/Globulin Ratio 1.3 (1-3) Blood Type Antibody Screen 11/02/16 11/02/16 Range/Units 14:22 14:22 WBC (3.5-10.8) 10^3/ul RBC (4.0-5.4) 10^6/ul Hgb (12.0-16.0) g/dl Hct (35-47) % MCV (80-97) fL MCH (27-31) pg MCHC (31-36) g/dl RDW (10.5-15) % Plt Count (150-450) 10^3/ul MPV (7.4-10.4) um3 Neut % (Auto) (38-83) % Lymph % (Auto) (25-47) % Carroll % (Auto) (1-9) % Eos % (Auto) (0-6) % Baso % (Auto) (0-2) % Absolute Neuts (auto) (1.5-7.7) 10^3/ul Absolute Lymphs (auto) (1.0-4.8) 10^3/ul Absolute Monos (auto) (0-0.8) 10^3/ul Absolute Eos (auto) (0-0.6) 10^3/ul Absolute Basos (auto) (0-0.2) 10^3/ul Absolute Nucleated RBC 10^3/ul Nucleated RBC % INR (Anticoag Therapy) (0.89-1.11) APTT (26.0-36.3) seconds Sodium (133-145) mmol/L Potassium Chloride (101-111) mmol/L Carbon Dioxide (22-32) mmol/L Anion Gap BUN (6-24) mg/dL Creatinine (0.51-0.95) mg/dL Est GFR ( Amer) (>60) Est GFR (Non-Af Amer) (>60) BUN/Creatinine Ratio (8-20) Glucose (70-100) mg/dL Lactic Acid 1.4 (0.5-2.0) mmol/L Calcium (8.6-10.3) mg/dL Total Bilirubin (0.2-1.0) mg/dL AST (13-39) U/L ALT (7-52) U/L Alkaline Phosphatase (34-104) U/L Troponin I Total Protein (6.4-8.9) g/dL Albumin (3.2-5.2) g/dL Globulin (2-4) g/dL Albumin/Globulin Ratio (1-3) Blood Type O Positive Antibody Screen Pending Microbiology and Other Data: Microbiology 11/03/16 00:40 Nasal Screen MRSA (PCR)(DONA) - Final Nasal Mrsa Negative Assess/Plan/Problems-Billing Ms Sorensen is an 81 yo F who has a h/o PAD, possible TIA in the past, HTN and hypothyroidism who presented to the ER with c/o fall and L hip pain. - Patient Problems (1) Fracture of left hip Current Visit: Yes Status: Acute Code(s): S72.002A - FRACTURE OF UNSP PART OF NECK OF LEFT FEMUR, INIT SNOMED Code(s): 308970023 Comment: S/P cannulated screw fixation. PT/OT to start tomorrow. Continue with pain control-she states her pain is better today than last night. (2) Hypokalemia Current Visit: Yes Status: Acute Code(s): E87.6 - HYPOKALEMIA SNOMED Code( s): 16465571 Comment: This appears to be a chronic problem. Replete as needed. (3) HTN (hypertension) Current Visit: Yes Status: Chronic Code(s): I10 - ESSENTIAL (PRIMARY) HYPERTENSION SNOMED Code(s): 30054290 Comment: BP is under good control off antihypertensives. Monitor. (4) Hypothyroidism Current Visit: Yes Status: Chronic Code(s): E03.9 - HYPOTHYROIDISM, UNSPECIFIED SNOMED Code(s): 60633542 Comment: Continue current dose of synthroid. (5) DVT prophylaxis Current Visit: Yes Status: Acute Code(s): GTI8131 - SNOMED Code(s): 695065132 Comment: No SCDs secondary to B/L LE wounds with severe pain, start chemical prophylaxis per orthopedics (6) Full code status Current Visit: Yes Status: Acute Code(s): Z78.9 - OTHER SPECIFIED HEALTH STATUS SNOMED Code(s): 134732617
[2016-11-03] MEDS ORDERED: Potassium Chlor TAB* 20 MEQ TAB.ER PO ONE (18:29)
[2016-11-03] MEDS ORDERED: Bisacodyl SUPP* 10 MG SUPP PR PRN (18:34)
[2016-11-03] MEDS ORDERED: Magnesium Hydroxide LIQ* 30 ML UDC PO PRN (18:37)
[2016-11-03] MEDS ORDERED: Polyethylene Glycol 3350* 17 GM PACKET PO PRN (18:38)
[2016-11-03] MEDS ORDERED: HYDROmorphone INJ* 1 MG/ML CARPUJECT SYRINGE IV SLOW PU PRN (18:56)
[2016-11-03] MEDS ORDERED: HYDROcodone/ACETAMIN 5-325 MG* 1 TAB PO ONE (18:57)
[2016-11-03] MEDS: Enoxaparin(*) 30 MG/0.3 ML SYR SUBCUT SCH (19:14)
[2016-11-03] MEDS: Docusate CAP* 100 MG PO SCH ×2 (20:52→20:56)
[2016-11-03] MEDS: Clindamycin 600 MG IVPREMIX(* 600 MG/50 ML SDV IV SCH (23:40)
[2016-11-04] MEDS ORDERED: oxyCODONE/Acetamin 5/325 MG* TAB PO PRN ×2 (01:42→01:43)
[2016-11-04] MEDS: HYDROcodone/ACETAMIN 5-325 MG* 1 TAB PO PRN ×3 (03:54→14:35)
[2016-11-04] MEDS: NS 0.9% 1000 ML* 1,000 ML IV SCH ×3 (03:57→20:27)
--- NOTE | 2016-11-04 05:59 | OP ---
DATE OF OPERATION: 11/03/16 - ROOM #348 DATE OF : 31 SURGEON: Izabel Mike MD GROUP PRESIDENT: CLEMENT Cummings ANESTHESIOLOGIST: Dr. Garvey. ANESTHESIA: General. PRE-OP DIAGNOSIS: Left minimally displaced subcapital valgus impacted femoral neck fracture. POST-OP DIAGNOSES: Left minimally displaced subcapital valgus impacted femoral neck fracture, osteopenia. OPERATIVE PROCEDURE: Cannulated screw fixation of the left minimally displaced femoral neck fracture. INDICATIONS: Ms. Sorensen is an 81-year-old female who fell in her home on 01/12 while sitting down on a chair. She had immediate left hip pain and went to [facility] on 11/02/16 with difficulty ambulating. She was found to have an impacted subcapital femoral neck fracture. She was transferred to [facility] and optimized for surgery. I am consulted for orthopedic fracture care, and the patient as well as her family wished to have operative fixation of the fracture to help ensure future ambulation. Informed consent was obtained from the patient and her family. They understand the risks of surgery include but are not limited to bleeding, infection, damage to nearby structures, continued pain, need for further surgery, failure of the bone to heal, hardware failure, intraoperative fracture, stroke, heart attack, blood clot, and . They wished to proceed. COMPLICATIONS: None. EBL: 50 cc. SPECIMEN: None. HARDWARE: Three 7.3 short thread cannulated screws were used, length of 85, 80 , and 80 mm. INTRAOPERATIVE FINDINGS: Intraoperatively, the patient was noted to have a minimally displaced fracture of the femoral neck in the subcapital region with valgus impaction. Her bone was extremely osteopenic. DESCRIPTION OF PROCEDURE: Ms. Sorensen was identified in the preanesthesia unit. Her left lower extremity was marked as the correct operative side. Informed consent was signed and placed in the chart. The patient was taken to the operating room and placed under general anesthesia. She was then placed on the fracture table. Right lower extremity was placed in lithotomy position while left lower extremity was placed in a traction boot. No traction was applied. Left lower extremity was prepped and draped in the usual sterile fashion. C-arm views, AP and lateral, were used to ensure that there was no loss of reduction of the fracture since prior films. It was noted that there was minimal displacement of the fracture and cannulated screw fixation could proceed. Preop time-out was made to correctly identify the patient's side and site. Appropriate perioperative antibiotics were given within 1 hour of incision. A 4-cm lateral incision was made around the level of the lesser trochanter. Electrocautery was used to dissect down to the lateral fascial layer. A 10 blade was used to incise the lateral fascial layer in line with the skin incision. Anders elevator was used to dissect down to the lateral bone. A drill was used to place the guidewire in inferior central portion along the center of the femoral neck into the head. Next, two additional guidewires were placed in the formation of an inverted triangle. AP and lateral C-arm views confirmed satisfactory placement of the three guidewires in an inverted triangular position. The lateral cortex was drilled on each guidewire. Guidewires were measured at 85, 80, and 80 mm. Short partially threaded 7.3 cannulated screws were chosen. These were placed over the guidewires without difficulty. The guidewires were removed. Final AP and lateral C-arm views confirmed satisfactory position of the screws with no loss of fracture reduction. The wound was copiously irrigated with sterile saline. The lateral fascial layer was closed using interrupted #1 Vicryl's. The rest of the incision was closed in a layered fashion using 0 and 2-0 Vicryl's. Skin was closed using running 3-0 Monocryl suture and Dermabond. Sterile Adaptic, 4x4's, and paper tape were placed over the incision. The patient's anesthesia was reversed without difficulty. She was taken to the PACU in stable condition. Intended weight-bearing will be 50% weightbearing due to the patient's extreme osteopenia. Intended DVT prophylaxis will be Lovenox 30 units subcu daily. She will follow up with me in 2 weeks' time. [id number]/[facility] #: [id number] [facility]
[2016-11-04] MEDS: Levothyroxine TAB* 125 MCG TAB PO SCH (06:20)
[2016-11-04] MEDS: Clindamycin 600 MG IVPREMIX(* 600 MG/50 ML SDV IV SCH ×3 (06:21→22:58)
[2016-11-04 06:51] LABS: Hematocrit 27 % (35-47); Hemoglobin 8.1 g/dl (12.0-16.0); Mean Corpuscular HGB Conc 30 g/dl (31-36); Mean Corpuscular Hemoglobin 23 pg (27-31); Mean Corpuscular Volume 76 fL (80-97); Mean Platelet Volume 8 um3 (7.4-10.4); Red Cell Distribution Width 16 % (10.5-15); White Blood Count 6.4 10^3/ul (3.5-10.8)
[2016-11-04 07:01] LABS: BUN/Creatinine Ratio 31.7 (8-20); EGFR African American 116.1 (>60); EGFR Non-African American 90.2 (>60); Potassium 3.8 mmol/L (3.5-5.0)
--- NOTE | 2016-11-04 08:19 | PN ---
Progress Note - Progress Note SOAP: Subjective: []Patient seen at bedside. Pain is well managed. Denies chest pain, shortness of breath or dizziness. Objective: [] Vital Signs Temp 97.3 F 11/04/16 07:22 Pulse 111 11/04/16 07:22 Resp 18 11/04/16 07:22 BP 117/76 11/04/16 07:22 Pulse Ox 80 11/04/16 07:22 Intake & Output 11/03/16 11/04/16 11/04/16 18:59 06:59 18:59 Intake Total 1200 2205 Output Total 375 175 Balance 825 2030 Intake: IV Fluids 1200 905 NS (0.9%) 905 lr 1200 Oral 0 1300 Output: Urine 0 Byrd 300 175 Estimated Blood Loss 75 Other: # Bowel Movements 0 Laboratory Results - last 24 hr 11/03/16 11/03/16 11/04/16 07:54 11:20 06:36 WBC 6.4 RBC 3.50 L Hgb 8.1 L Hct 27 L MCV 76 L MCH 23 L MCHC 30 L RDW 16 H Plt Count 123 L MPV 8 Neut % (Auto) 68.7 Lymph % (Auto) 16.1 L [place] % (Auto) 10.8 H Eos % (Auto) 3.7 Baso % (Auto) 0.7 Absolute Neuts (auto) 4.4 Absolute Lymphs (auto) 1.0 Absolute Monos (auto) 0.7 Absolute Eos (auto) 0.2 Absolute Basos (auto) 0 Absolute Nucleated RBC 0 Nucleated RBC % 0 INR (Anticoag Therapy) 1.13 H Sodium 136 Potassium 3.4 L Chloride 100 L Carbon Dioxide 35 H Anion Gap 1 L BUN 20 Creatinine 0.77 Est GFR ( Amer) 92.1 Est GFR (Non-Af Amer) 71.6 BUN/Creatinine Ratio 26.0 H Glucose 103 H Calcium 8.3 L 11/04/16 06:37 WBC RBC Hgb Hct MCV MCH MCHC RDW Plt Count MPV Neut % (Auto) Lymph % (Auto) [place] % (Auto) Eos % (Auto) Baso % (Auto) Absolute Neuts (auto) Absolute Lymphs (auto) Absolute Monos (auto) Absolute Eos (auto) Absolute Basos (auto) Absolute Nucleated RBC Nucleated RBC % INR (Anticoag Therapy) Sodium 137 Potassium 3.8 Chloride 104 Carbon Dioxide 31 Anion Gap 2 BUN 20 Creatinine 0.63 Est GFR ( Amer) 116.1 Est GFR (Non-Af Amer) 90.2 BUN/Creatinine Ratio 31.7 H Glucose 105 H Calcium 8.0 L Left hip dressing is C/D/I calf non tender LE wounds dressed with stockinettes donned +DF/PF left ankle Jordon's sign negative neuro intact distally Assessment: []s/p left hip internal fixation with cannulated screws for non displaced femoral neck fracture POD#1 Plan: []PT/OT PWB 50% Lovenox 30 mg sq q 24hrs Wound care managing LE wounds Rehab when medically stable for discharge.
[2016-11-04] MEDS ORDERED: NS 0.9% 500 ML* 500 ML IV SCH (08:30)
[2016-11-04] MEDS: Aspirin Low Dose CHEW TAB* 81 MG PO SCH (09:38)
[2016-11-04] MEDS: Docusate CAP* 100 MG PO SCH ×2 (10:01→20:28)
[2016-11-04] MEDS: Gabapentin CAP(*) 300 MG PO SCH ×2 (10:01→20:28)
--- NOTE | 2016-11-04 16:00 | PN ---
Subjective Date of Service: 11/04/16 Interval History: Pt is feeling ok. She states she has no pain in her hip at rest. She does not pain with movement. She states she did ok with transferring from bed to chair. Objective Active Medications: Acetaminophen/Hydrocodone Bitart (Sultana 5-325 Tab*) 1 tab PO Q4H PRN PRN Reason: PAIN Acetaminophen/Hydrocodone Bitart (Sultana 5-325 Tab*) 2 tab PO Q4H PRN PRN Reason: PAIN Last Admin: 11/04/16 14:35 Dose: 2 tab Aspirin (Aspirin Low Dose Tab*) 81 mg PO DAILY [facility] Last Admin: 11/04/16 09:38 Dose: 81 mg Bisacodyl (Dulcolax Supp*) 10 mg MS DAILY PRN PRN Reason: CONSTIPATION Docusate Sodium (Colace Cap*) 100 mg PO BID [facility] Last Admin: 11/04/16 10:01 Dose: 100 mg Enoxaparin Sodium (Lovenox(*)) 30 mg SUBCUT Q24H [facility] Last Admin: 11/03/16 19:14 Dose: 30 mg Gabapentin (Neurontin Cap(*)) 300 mg PO BID [facility] Last Admin: 11/04/16 10:01 Dose: 300 mg Hydromorphone HCl (Dilaudid Iv*) 1 mg IV SLOW PU Q4H PRN PRN Reason: PAIN Sodium Chloride (Ns 0.9% 1000 Ml*) 1,000 mls @ 100 mls/hr IV PER RATE [facility] Last Admin: 11/04/16 10:02 Dose: 100 mls/hr Clindamycin HCl/Dextrose (Cleocin 600 Mg Ivpremix(*) Sdv) 600 mg in 50 mls @ 100 mls/hr IV Q8H [facility] Last Admin: 11/04/16 15:09 Dose: 100 mls/hr Lactulose (Lactulose*) 30 ml PO Q6H PRN PRN Reason: MD DISCRETION Levothyroxine Sodium (Synthroid Tab*) 125 mcg PO DAILY@0600 [facility] Last Admin: 11/04/16 06:20 Dose: 125 mcg Magnesium Hydroxide (Milk Of Magnesia Liq*) 30 ml PO Q6H PRN PRN Reason: CONSTIPATION Ondansetron HCl (Zofran Inj*) 4 mg IV Q6H PRN PRN Reason: NAUSEA Polyethylene Glycol/Electrolytes (Miralax*) 17 gm PO DAILY PRN PRN Reason: CONSTIPATION Vital Signs 11/03/16 11/03/16 11/03/16 16:13 16:15 16:20 Temperature 97.7 F Pulse Rate 74 73 70 Respiratory 16 14 13 Rate Blood Pressure 148/89 155/87 142/103 (mmHg) O2 Sat by Pulse 99 95 92 Oximetry 11/03/16 11/03/16 11/03/16 16:24 16:29 16:43 Temperature Pulse Rate 72 67 69 Respiratory 13 15 12 Rate Blood Pressure 145/91 165/90 154/84 (mmHg) O2 Sat by Pulse 99 100 100 Oximetry 11/03/16 11/03/16 11/03/16 16:51 16:56 17:00 Temperature Pulse Rate 73 Respiratory 14 12 12 Rate Blood Pressure 134/94 (mmHg) O2 Sat by Pulse 95 Oximetry 11/03/16 11/03/16 11/03/16 17:01 17:05 17:12 Temperature Pulse Rate Respiratory 12 14 12 Rate Blood Pressure (mmHg) O2 Sat by Pulse Oximetry 11/03/16 11/03/16 11/03/16 17:13 17:29 17:43 Temperature 98.2 F 97.3 F Pulse Rate 68 71 65 Respiratory 10 16 16 Rate Blood Pressure 137/85 136/81 135/77 (mmHg) O2 Sat by Pulse 99 99 100 Oximetry 11/03/16 11/03/16 11/03/16 18:22 18:31 18:53 Temperature 97.3 F Pulse Rate 65 74 Respiratory 16 16 20 Rate Blood Pressure 135/77 95/58 (mmHg) O2 Sat by Pulse 100 99 Oximetry 11/03/16 11/03/16 11/03/16 19:00 19:01 19:53 Temperature 98.2 F 97.9 F Pulse Rate 74 87 Respiratory 16 20 18 Rate Blood Pressure 95/58 102/59 (mmHg) O2 Sat by Pulse 99 100 Oximetry 11/03/16 11/03/16 11/03/16 20:15 20:52 21:00 Temperature Pulse Rate Respiratory 18 18 18 Rate Blood Pressure (mmHg) O2 Sat by Pulse Oximetry 11/03/16 11/03/16 11/03/16 21:43 22:52 23:24 Temperature 98.0 F 98.3 F Pulse Rate 85 74 Respiratory 20 18 16 Rate Blood Pressure 111/61 116/61 (mmHg) O2 Sat by Pulse 98 92 Oximetry 11/03/16 11/04/16 11/04/16 23:37 00:00 01:37 Temperature Pulse Rate Respiratory 18 18 Rate Blood Pressure (mmHg) O2 Sat by Pulse 92 Oximetry 11/04/16 11/04/16 11/04/16 03:48 03:54 05:54 Temperature 97.3 F Pulse Rate 80 Respiratory 16 16 20 Rate Blood Pressure 118/67 (mmHg) O2 Sat by Pulse 92 Oximetry 11/04/16 11/04/16 11/04/16 07:20 07:22 09:40 Temperature 97.3 F Pulse Rate 111 Respiratory 16 18 18 Rate Blood Pressure 117/76 (mmHg) O2 Sat by Pulse 92 80 Oximetry 11/04/16 11/04/16 11/04/16 10:01 11:28 11:40 Temperature 97.9 F Pulse Rate 79 Respiratory 20 16 15 Rate Blood Pressure 107/62 (mmHg) O2 Sat by Pulse 93 Oximetry 11/04/16 14:35 Temperature Pulse Rate Respiratory 16 Rate Blood Pressure (mmHg) O2 Sat by Pulse Oximetry Oxygen Devices in Use Now: Nasal Cannula - 93%-2L Appearance: Elderly female sitting in a chair, NAD Eyes: No Scleral Icterus Ears/Nose/Mouth/Throat: Mucous Membranes Moist Respiratory: Symmetrical Chest Expansion and Respiratory Effort, Clear to Auscultation Cardiovascular: NL Sounds; No Murmurs; No JVD, RRR, No Edema Abdominal: NL Sounds; No Tenderness; No Distention Extremities: No Clubbing, Cyanosis Skin: No Rash or Ulcers, No Nodules or Sclerosis Neurological: - - alert, oriented to place and situation Result Diagrams: 11/04/16 06:36 11/04/16 06:37 Additional Lab and Data: Lab Results 11/02/16 11/02/16 11/02/16 Range/Units 14:22 14:22 14:22 WBC 12.0 H (3.5-10.8) 10^3/ul RBC 4.42 (4.0-5.4) 10^6/ul Hgb 10.0 L (12.0-16.0) g/dl Hct 33 L (35-47) % MCV 76 L (80-97) fL MCH 23 L (27-31) pg MCHC 30 L (31-36) g/dl RDW 15 (10.5-15) % Plt Count 160 (150-450) 10^3/ul MPV 7 L (7.4-10.4) um3 Neut % (Auto) 77.3 (38-83) % Lymph % (Auto) 10.8 L (25-47) % Yates % (Auto) 9.2 H (1-9) % Eos % (Auto) 2.1 (0-6) % Baso % (Auto) 0.6 (0-2) % Absolute Neuts (auto) 9.3 H (1.5-7.7) 10^3/ul Absolute Lymphs (auto) 1.3 (1.0-4.8) 10^3/ul Absolute Monos (auto) 1.1 H (0-0.8) 10^3/ul Absolute Eos (auto) 0.3 (0-0.6) 10^3/ul Absolute Basos (auto) 0.1 (0-0.2) 10^3/ul Absolute Nucleated RBC 0.01 10^3/ul Nucleated RBC % 0 INR (Anticoag Therapy) 1.15 H (0.89-1.11) APTT 28.9 (26.0-36.3) seconds Sodium 135 (133-145) mmol/L Potassium Pending Chloride 92 L (101-111) mmol/L Carbon Dioxide 36 H (22-32) mmol/L Anion Gap Pending BUN 23 (6-24) mg/dL Creatinine 0.94 (0.51-0.95) mg/dL Est GFR ( Amer) 73.1 (>60) Est GFR (Non-Af Amer) 56.9 (>60) BUN/Creatinine Ratio 24.5 H (8-20) Glucose 96 (70-100) mg/dL Lactic Acid (0.5-2.0) mmol/L Calcium 8.6 (8.6-10.3) mg/dL Total Bilirubin 0.80 (0.2-1.0) mg/dL AST 22 (13-39) U/L ALT 13 (7-52) U/L Alkaline Phosphatase 89 (34-104) U/L Troponin I Pending Total Protein 6.3 L (6.4-8.9) g/dL Albumin 3.5 (3.2-5.2) g/dL Globulin 2.8 (2-4) g/dL Albumin/Globulin Ratio 1.3 (1-3) Blood Type Antibody Screen 11/02/16 11/02/16 Range/Units 14:22 14:22 WBC (3.5-10.8) 10^3/ul RBC (4.0-5.4) 10^6/ul Hgb (12.0-16.0) g/dl Hct (35-47) % MCV (80-97) fL MCH (27-31) pg MCHC (31-36) g/dl RDW (10.5-15) % Plt Count (150-450) 10^3/ul MPV (7.4-10.4) um3 Neut % (Auto) (38-83) % Lymph % (Auto) (25-47) % Yates % (Auto) (1-9) % Eos % (Auto) (0-6) % Baso % (Auto) (0-2) % Absolute Neuts (auto) (1.5-7.7) 10^3/ul Absolute Lymphs (auto) (1.0-4.8) 10^3/ul Absolute Monos (auto) (0-0.8) 10^3/ul Absolute Eos (auto) (0-0.6) 10^3/ul Absolute Basos (auto) (0-0.2) 10^3/ul Absolute Nucleated RBC 10^3/ul Nucleated RBC % INR (Anticoag Therapy) (0.89-1.11) APTT (26.0-36.3) seconds Sodium (133-145) mmol/L Potassium Chloride (101-111) mmol/L Carbon Dioxide (22-32) mmol/L Anion Gap BUN (6-24) mg/dL Creatinine (0.51-0.95) mg/dL Est GFR ( Amer) (>60) Est GFR (Non-Af Amer) (>60) BUN/Creatinine Ratio (8-20) Glucose (70-100) mg/dL Lactic Acid 1.4 (0.5-2.0) mmol/L Calcium (8.6-10.3) mg/dL Total Bilirubin (0.2-1.0) mg/dL AST (13-39) U/L ALT (7-52) U/L Alkaline Phosphatase (34-104) U/L Troponin I Total Protein (6.4-8.9) g/dL Albumin (3.2-5.2) g/dL Globulin (2-4) g/dL Albumin/Globulin Ratio (1-3) Blood Type O Positive Antibody Screen Pending Microbiology and Other Data: Microbiology 11/03/16 00:40 Nasal Screen MRSA (PCR)(DONA) - Final Nasal Mrsa Negative Assess/Plan/Problems-Billing Ms Sorensen is an 81 yo F who has a h/o PAD, possible TIA in the past, HTN and hypothyroidism who presented to the ER with c/o fall and L hip pain. - Patient Problems (1) Fracture of left hip Current Visit: Yes Status: Acute Code(s): S72.002A - FRACTURE OF UNSP PART OF NECK OF LEFT FEMUR, INIT SNOMED Code(s): 028257439 Comment: POD#1 s/p cannulated screw fixation. Continue PT/OT. Continue with pain control with Sultana. DVT prophylaxis per orthopedics (lovenox). (2) Acute blood loss anemia Current Visit: Yes Status: Acute Code(s): D62 - ACUTE POSTHEMORRHAGIC ANEMIA SNOMED Code(s): 494390966 Comment: Pt with acute blood loss anemia secondary to fracture and surgery. Follow up H/H tomorrow. If lower will likely transfuse 1 unit PRBC. (3) Hypokalemia Current Visit: Yes Status: Acute Code(s): E87.6 - HYPOKALEMIA SNOMED Code( s): 99126702 Comment: Improved today. Continue to follow intermittently. (4) HTN (hypertension) Current Visit: Yes Status: Chronic Code(s): I10 - ESSENTIAL (PRIMARY) HYPERTENSION SNOMED Code(s): 55051100 Comment: BP is under good control off antihypertensives. Monitor. (5) Hypothyroidism Current Visit: Yes Status: Chronic Code(s): E03.9 - HYPOTHYROIDISM, UNSPECIFIED SNOMED Code(s): 95076558 Comment: Continue current dose of synthroid. (6) DVT prophylaxis Current Visit: Yes Status: Acute Code(s): KRO5600 - SNOMED Code(s): 811389274 Comment: Lovenox (7) Full code status Current Visit: Yes Status: Acute Code(s): Z78.9 - OTHER SPECIFIED HEALTH STATUS SNOMED Code(s): 760432097
[2016-11-04] MEDS: Enoxaparin(*) 30 MG/0.3 ML SYR SUBCUT SCH (18:37)
[2016-11-05] MEDS: Levothyroxine TAB* 125 MCG TAB PO SCH (05:49)
[2016-11-05] MEDS: HYDROcodone/ACETAMIN 5-325 MG* 1 TAB PO PRN ×2 (05:50→21:48)
[2016-11-05] MEDS: Clindamycin 600 MG IVPREMIX(* 600 MG/50 ML SDV IV SCH ×3 (06:37→23:56)
[2016-11-05] MEDS: NS 0.9% 1000 ML* 1,000 ML IV SCH ×2 (06:39→17:51)
[2016-11-05 06:41] LABS: Hematocrit 27 % (35-47); Hemoglobin 8.4 g/dl (12.0-16.0); Mean Corpuscular HGB Conc 31 g/dl (31-36); Mean Corpuscular Hemoglobin 24 pg (27-31); Mean Corpuscular Volume 77 fL (80-97); Mean Platelet Volume 8 um3 (7.4-10.4); Red Blood Count 3.57 10^6/ul (4.0-5.4); Red Cell Distribution Width 16 % (10.5-15); White Blood Count 6.1 10^3/ul (3.5-10.8)
[2016-11-05 06:58] LABS: Calcium 7.8 mg/dL (8.6-10.3); EGFR African American 122.8 (>60); EGFR Non-African American 95.5 (>60); Potassium 3.9 mmol/L (3.5-5.0)
--- NOTE | 2016-11-05 07:44 | PN ---
Progress Note - Progress Note SOAP: Subjective: Pt. reports minimal pain. Objective: LLE - dressing changed, inc c/d/i. distally nvi. Vital Signs: Temp Pulse Resp BP Pulse Ox 99.0 F 74 20 144/88 100 11/05/16 03:53 11/05/16 03:53 11/05/16 05:50 11/05/16 03:53 11/05/16 03:53 Laboratory Results - last 24 hr 11/05/16 11/05/16 06:01 06:01 WBC 6.1 RBC 3.57 L Hgb 8.4 L Hct 27 L MCV 77 L MCH 24 L MCHC 31 RDW 16 H Plt Count 149 L MPV 8 Sodium 137 Potassium 3.9 Chloride 107 Carbon Dioxide 28 Anion Gap 2 BUN 15 Creatinine 0.60 Est GFR ( Amer) 122.8 Est GFR (Non-Af Amer) 95.5 BUN/Creatinine Ratio 25.0 H Glucose 93 Calcium 7.8 L Assessment: 81 yo F pod 2 s/p audra'ed screws L fem neck fx Plan: pt/ot - 50 % wb LLE pt. is ortho stable for d/c to rehab would recommend pmru dvt proph per medicine preference
[2016-11-05] MEDS: Gabapentin CAP(*) 300 MG PO SCH ×2 (08:31→21:19)
[2016-11-05] MEDS: Aspirin Low Dose CHEW TAB* 81 MG PO SCH (08:32)
[2016-11-05] MEDS: Docusate CAP* 100 MG PO SCH ×2 (08:32→21:20)
--- NOTE | 2016-11-05 15:08 | PN ---
Subjective Date of Service: 11/05/16 Interval History: Ms. Sorensen denies complaint today. She feels that she is doing well with physical therapy. She denies hip pain. She also denies chest pain, SOB, nausea , or abdominal pain. Objective Active Medications: Acetaminophen/Hydrocodone Bitart ([place] 5-325 Tab*) 1 tab PO Q4H PRN Acetaminophen/Hydrocodone Bitart ([place] 5-325 Tab*) 2 tab PO Q4H PRN Aspirin (Aspirin Low Dose Tab*) 81 mg PO DAILY MILAN Bisacodyl (Dulcolax Supp*) 10 mg [place] DAILY PRN Docusate Sodium (Colace Cap*) 100 mg PO BID MILAN Enoxaparin Sodium (Lovenox(*)) 30 mg SUBCUT Q24H MILAN Gabapentin (Neurontin Cap(*)) 300 mg PO BID MILAN Hydromorphone HCl (Dilaudid Iv*) 1 mg IV SLOW PU Q4H PRN Sodium Chloride (Ns 0.9% 1000 Ml*) 1,000 mls @ 100 mls/hr IV PER RATE MILAN Clindamycin HCl/Dextrose (Cleocin 600 Mg Ivpremix(*) Sdv) 600 mg in 50 mls @ 100 mls/hr IV Q8H MILAN Lactulose (Lactulose*) 30 ml PO Q6H PRN Levothyroxine Sodium (Synthroid Tab*) 125 mcg PO DAILY@0600 MILAN Magnesium Hydroxide (Milk Of Magnesia Liq*) 30 ml PO Q6H PRN Ondansetron HCl (Zofran Inj*) 4 mg IV Q6H PRN Polyethylene Glycol/Electrolytes (Miralax*) 17 gm PO DAILY PRN Vital Signs 11/04/16 11/04/16 11/04/16 15:36 16:35 20:16 Temperature 97.9 F 97.9 F Pulse Rate 86 80 Respiratory 18 15 16 Rate Blood Pressure 98/67 128/79 (mmHg) O2 Sat by Pulse 94 92 Oximetry 11/04/16 11/04/16 11/04/16 20:17 20:28 22:28 Temperature Pulse Rate Respiratory 20 20 16 Rate Blood Pressure (mmHg) O2 Sat by Pulse Oximetry 11/04/16 11/05/16 11/05/16 23:16 03:53 05:50 Temperature 97.3 F 99.0 F Pulse Rate 72 74 Respiratory 20 16 20 Rate Blood Pressure 134/84 144/88 (mmHg) O2 Sat by Pulse 100 100 Oximetry 11/05/16 11/05/16 11/05/16 07:40 07:50 08:00 Temperature 97.5 F Pulse Rate 70 Respiratory 18 18 18 Rate Blood Pressure 135/76 (mmHg) O2 Sat by Pulse 100 100 Oximetry 11/05/16 11/05/16 11/05/16 08:31 10:31 12:21 Temperature Pulse Rate 85 Respiratory 18 17 18 Rate Blood Pressure 126/91 (mmHg) O2 Sat by Pulse 96 Oximetry 11/05/16 12:57 Temperature 97.8 F Pulse Rate Respiratory Rate Blood Pressure (mmHg) O2 Sat by Pulse Oximetry Oxygen Devices in Use Now: Nasal Cannula - 93%-2L Appearance: Elderly female sitting up in chair in NAD Respiratory: Symmetrical Chest Expansion and Respiratory Effort, Clear to Auscultation Cardiovascular: NL Sounds; No Murmurs; No JVD, No Edema Abdominal: NL Sounds; No Tenderness; No Distention Extremities: No Edema Skin: No Rash or Ulcers Neurological: Alert and Oriented x 3, NL Muscle Strength and Tone Nutrition: Taking PO's Result Diagrams: 11/05/16 06:01 11/05/16 06:01 Additional Lab and Data: Lab Results 11/02/16 11/02/16 11/02/16 Range/Units 14:22 14:22 14:22 WBC 12.0 H (3.5-10.8) 10^3/ul RBC 4.42 (4.0-5.4) 10^6/ul Hgb 10.0 L (12.0-16.0) g/dl Hct 33 L (35-47) % MCV 76 L (80-97) fL MCH 23 L (27-31) pg MCHC 30 L (31-36) g/dl RDW 15 (10.5-15) % Plt Count 160 (150-450) 10^3/ul MPV 7 L (7.4-10.4) um3 Neut % (Auto) 77.3 (38-83) % Lymph % (Auto) 10.8 L (25-47) % [place] % (Auto) 9.2 H (1-9) % Eos % (Auto) 2.1 (0-6) % Baso % (Auto) 0.6 (0-2) % Absolute Neuts (auto) 9.3 H (1.5-7.7) 10^3/ul Absolute Lymphs (auto) 1.3 (1.0-4.8) 10^3/ul Absolute Monos (auto) 1.1 H (0-0.8) 10^3/ul Absolute Eos (auto) 0.3 (0-0.6) 10^3/ul Absolute Basos (auto) 0.1 (0-0.2) 10^3/ul Absolute Nucleated RBC 0.01 10^3/ul Nucleated RBC % 0 INR (Anticoag Therapy) 1.15 H (0.89-1.11) APTT 28.9 (26.0-36.3) seconds Sodium 135 (133-145) mmol/L Potassium Pending Chloride 92 L (101-111) mmol/L Carbon Dioxide 36 H (22-32) mmol/L Anion Gap Pending BUN 23 (6-24) mg/dL Creatinine 0.94 (0.51-0.95) mg/dL Est GFR ( Amer) 73.1 (>60) Est GFR (Non-Af Amer) 56.9 (>60) BUN/Creatinine Ratio 24.5 H (8-20) Glucose 96 (70-100) mg/dL Lactic Acid (0.5-2.0) mmol/L Calcium 8.6 (8.6-10.3) mg/dL Total Bilirubin 0.80 (0.2-1.0) mg/dL AST 22 (13-39) U/L ALT 13 (7-52) U/L Alkaline Phosphatase 89 (34-104) U/L Troponin I Pending Total Protein 6.3 L (6.4-8.9) g/dL Albumin 3.5 (3.2-5.2) g/dL Globulin 2.8 (2-4) g/dL Albumin/Globulin Ratio 1.3 (1-3) Blood Type Antibody Screen 11/02/16 11/02/16 Range/Units 14:22 14:22 WBC (3.5-10.8) 10^3/ul RBC (4.0-5.4) 10^6/ul Hgb (12.0-16.0) g/dl Hct (35-47) % MCV (80-97) fL MCH (27-31) pg MCHC (31-36) g/dl RDW (10.5-15) % Plt Count (150-450) 10^3/ul MPV (7.4-10.4) um3 Neut % (Auto) (38-83) % Lymph % (Auto) (25-47) % [place] % (Auto) (1-9) % Eos % (Auto) (0-6) % Baso % (Auto) (0-2) % Absolute Neuts (auto) (1.5-7.7) 10^3/ul Absolute Lymphs (auto) (1.0-4.8) 10^3/ul Absolute Monos (auto) (0-0.8) 10^3/ul Absolute Eos (auto) (0-0.6) 10^3/ul Absolute Basos (auto) (0-0.2) 10^3/ul Absolute Nucleated RBC 10^3/ul Nucleated RBC % INR (Anticoag Therapy) (0.89-1.11) APTT (26.0-36.3) seconds Sodium (133-145) mmol/L Potassium Chloride (101-111) mmol/L Carbon Dioxide (22-32) mmol/L Anion Gap BUN (6-24) mg/dL Creatinine (0.51-0.95) mg/dL Est GFR ( Amer) (>60) Est GFR (Non-Af Amer) (>60) BUN/Creatinine Ratio (8-20) Glucose (70-100) mg/dL Lactic Acid 1.4 (0.5-2.0) mmol/L Calcium (8.6-10.3) mg/dL Total Bilirubin (0.2-1.0) mg/dL AST (13-39) U/L ALT (7-52) U/L Alkaline Phosphatase (34-104) U/L Troponin I Total Protein (6.4-8.9) g/dL Albumin (3.2-5.2) g/dL Globulin (2-4) g/dL Albumin/Globulin Ratio (1-3) Blood Type O Positive Antibody Screen Pending Microbiology and Other Data: Microbiology 11/03/16 00:40 Nasal Screen MRSA (PCR)(DONA) - Final Nasal Mrsa Negative Assess/Plan/Problems-Billing Ms Sorensen is an 81 yo F who has a h/o PAD, possible TIA in the past, HTN and hypothyroidism who presented to the ER with c/o fall and L hip pain. - Patient Problems (1) Fracture of left hip Comment: POD#2 s/p cannulated screw fixation. Continue PT/OT. Continue with pain control with [place]. DVT prophylaxis per orthopedics (lovenox). (2) Acute blood loss anemia Comment: Pt with acute blood loss anemia secondary to fracture and surgery. Stable. No indication for transfusion. (3) Hypokalemia Comment: Resolved. (4) HTN (hypertension) Comment: BP is under good control off antihypertensives. Monitor. (5) Hypothyroidism Comment: Continue current dose of synthroid. (6) DVT prophylaxis Comment: Lovenox (7) Full code status Status and Disposition: Inpatient. Likely plan for subacute rehab, PMRU consult pending.
[2016-11-05] MEDS: Enoxaparin(*) 30 MG/0.3 ML SYR SUBCUT SCH (17:52)
[2016-11-06] MEDS: NS 0.9% 1000 ML* 1,000 ML IV SCH (04:43)
[2016-11-06] MEDS: Levothyroxine TAB* 125 MCG TAB PO SCH (05:55)
[2016-11-06] MEDS: HYDROcodone/ACETAMIN 5-325 MG* 1 TAB PO PRN ×2 (05:58→10:46)
[2016-11-06] MEDS: Clindamycin 600 MG IVPREMIX(* 600 MG/50 ML SDV IV SCH (06:42)
--- NOTE | 2016-11-06 09:32 | PN ---
Progress Note - Progress Note SOAP: Subjective: []Patient OOB in chair. Wiped out from her exercises this am. Pain well managed. Son present, asking when she will be transfered to senior care rehab. Objective: [] Vital Signs Temp 97.8 F 11/06/16 07:06 Pulse 73 11/06/16 07:06 Resp 16 11/06/16 07:33 BP 137/75 11/06/16 07:06 Pulse Ox 93 11/06/16 07:06 Intake & Output 11/05/16 11/06/16 11/06/16 18:59 06:59 18:59 Intake Total 1210 1474 Output Total 550 900 Balance 660 574 Intake: IV Fluids 890 1259 Clindamycin 113 55 NS (0.9%) 777 1204 Oral 320 215 Output: Byrd 550 900 Other: # Bowel Movements 1 Estimated Stool Amount Large Left hip wound is benign, no drainage on dressing calf non tender and soft Jordon's negative +DF/PF left ankle neuro intact Assessment: []s/p cannulated screw fixation left hip for non displaced femoral neck fracture Plan: []PT OT as tolerated PWB 50% left LE Lovenox 30 mg q24 Byrd and IVF discontinued Orthopedically stable Discharge to rehab when bed available per medical service
[2016-11-06] MEDS: Gabapentin CAP(*) 300 MG PO SCH (09:42)
[2016-11-06] MEDS: Docusate CAP* 100 MG PO SCH (09:42)
[2016-11-06] MEDS: Aspirin Low Dose CHEW TAB* 81 MG PO SCH (09:42)
--- NOTE | 2016-11-06 11:18 | PN ---
Subjective Date of Service: 11/06/16 Interval History: Ms. Sorensen denies complaint today, other than wishing that breakfast was served earlier. She denies chest pain, SOB, nausea, or abdominal pain. She also denies hip pain this morning. Objective Active Medications: Acetaminophen/Hydrocodone Bitart ([place] 5-325 Tab*) 1 tab PO Q4H PRN Acetaminophen/Hydrocodone Bitart ([place] 5-325 Tab*) 2 tab PO Q4H PRN Aspirin (Aspirin Low Dose Tab*) 81 mg PO DAILY MILAN Bisacodyl (Dulcolax Supp*) 10 mg [place] DAILY PRN Docusate Sodium (Colace Cap*) 100 mg PO BID MILAN Enoxaparin Sodium (Lovenox(*)) 30 mg SUBCUT Q24H MILAN Gabapentin (Neurontin Cap(*)) 300 mg PO BID MILAN Hydromorphone HCl (Dilaudid Iv*) 1 mg IV SLOW PU Q4H PRN Sodium Chloride (Ns 0.9% 1000 Ml*) 1,000 mls @ 100 mls/hr IV PER RATE MILAN Lactulose (Lactulose*) 30 ml PO Q6H PRN Levothyroxine Sodium (Synthroid Tab*) 125 mcg PO DAILY@0600 MILAN Magnesium Hydroxide (Milk Of Magnesia Liq*) 30 ml PO Q6H PRN Ondansetron HCl (Zofran Inj*) 4 mg IV Q6H PRN Polyethylene Glycol/Electrolytes (Miralax*) 17 gm PO DAILY PRN Vital Signs 11/05/16 11/05/16 11/05/16 12:21 12:57 16:45 Temperature 97.8 F 98.0 F Pulse Rate 85 76 Respiratory 18 19 Rate Blood Pressure 126/91 119/82 (mmHg) O2 Sat by Pulse 96 93 Oximetry 11/05/16 11/05/16 11/05/16 20:30 21:19 21:30 Temperature 97.8 F Pulse Rate 76 Respiratory 18 20 20 Rate Blood Pressure 116/70 (mmHg) O2 Sat by Pulse 92 Oximetry 11/05/16 11/05/16 11/06/16 21:48 23:19 00:06 Temperature 99.3 F Pulse Rate 73 Respiratory 20 20 16 Rate Blood Pressure 123/66 (mmHg) O2 Sat by Pulse 92 Oximetry 11/06/16 11/06/16 11/06/16 04:04 05:58 07:06 Temperature 98.9 F 97.8 F Pulse Rate 72 73 Respiratory 16 18 17 Rate Blood Pressure 137/79 137/75 (mmHg) O2 Sat by Pulse 95 93 Oximetry 11/06/16 11/06/16 11/06/16 07:33 09:42 10:46 Temperature Pulse Rate Respiratory 16 16 16 Rate Blood Pressure (mmHg) O2 Sat by Pulse Oximetry Oxygen Devices in Use Now: None Appearance: Elderly female sitting up in chair in NAD Respiratory: Symmetrical Chest Expansion and Respiratory Effort, Clear to Auscultation Cardiovascular: NL Sounds; No Murmurs; No JVD, No Edema Extremities: No Edema Skin: No Rash or Ulcers Neurological: Alert and Oriented x 3, NL Muscle Strength and Tone Nutrition: Taking PO's Result Diagrams: 11/05/16 06:01 11/05/16 06:01 Additional Lab and Data: Lab Results 11/02/16 11/02/16 11/02/16 Range/Units 14:22 14:22 14:22 WBC 12.0 H (3.5-10.8) 10^3/ul RBC 4.42 (4.0-5.4) 10^6/ul Hgb 10.0 L (12.0-16.0) g/dl Hct 33 L (35-47) % MCV 76 L (80-97) fL MCH 23 L (27-31) pg MCHC 30 L (31-36) g/dl RDW 15 (10.5-15) % Plt Count 160 (150-450) 10^3/ul MPV 7 L (7.4-10.4) um3 Neut % (Auto) 77.3 (38-83) % Lymph % (Auto) 10.8 L (25-47) % [place] % (Auto) 9.2 H (1-9) % Eos % (Auto) 2.1 (0-6) % Baso % (Auto) 0.6 (0-2) % Absolute Neuts (auto) 9.3 H (1.5-7.7) 10^3/ul Absolute Lymphs (auto) 1.3 (1.0-4.8) 10^3/ul Absolute Monos (auto) 1.1 H (0-0.8) 10^3/ul Absolute Eos (auto) 0.3 (0-0.6) 10^3/ul Absolute Basos (auto) 0.1 (0-0.2) 10^3/ul Absolute Nucleated RBC 0.01 10^3/ul Nucleated RBC % 0 INR (Anticoag Therapy) 1.15 H (0.89-1.11) APTT 28.9 (26.0-36.3) seconds Sodium 135 (133-145) mmol/L Potassium Pending Chloride 92 L (101-111) mmol/L Carbon Dioxide 36 H (22-32) mmol/L Anion Gap Pending BUN 23 (6-24) mg/dL Creatinine 0.94 (0.51-0.95) mg/dL Est GFR ( Amer) 73.1 (>60) Est GFR (Non-Af Amer) 56.9 (>60) BUN/Creatinine Ratio 24.5 H (8-20) Glucose 96 (70-100) mg/dL Lactic Acid (0.5-2.0) mmol/L Calcium 8.6 (8.6-10.3) mg/dL Total Bilirubin 0.80 (0.2-1.0) mg/dL AST 22 (13-39) U/L ALT 13 (7-52) U/L Alkaline Phosphatase 89 (34-104) U/L Troponin I Pending Total Protein 6.3 L (6.4-8.9) g/dL Albumin 3.5 (3.2-5.2) g/dL Globulin 2.8 (2-4) g/dL Albumin/Globulin Ratio 1.3 (1-3) Blood Type Antibody Screen 11/02/16 11/02/16 Range/Units 14:22 14:22 WBC (3.5-10.8) 10^3/ul RBC (4.0-5.4) 10^6/ul Hgb (12.0-16.0) g/dl Hct (35-47) % MCV (80-97) fL MCH (27-31) pg MCHC (31-36) g/dl RDW (10.5-15) % Plt Count (150-450) 10^3/ul MPV (7.4-10.4) um3 Neut % (Auto) (38-83) % Lymph % (Auto) (25-47) % [place] % (Auto) (1-9) % Eos % (Auto) (0-6) % Baso % (Auto) (0-2) % Absolute Neuts (auto) (1.5-7.7) 10^3/ul Absolute Lymphs (auto) (1.0-4.8) 10^3/ul Absolute Monos (auto) (0-0.8) 10^3/ul Absolute Eos (auto) (0-0.6) 10^3/ul Absolute Basos (auto) (0-0.2) 10^3/ul Absolute Nucleated RBC 10^3/ul Nucleated RBC % INR (Anticoag Therapy) (0.89-1.11) APTT (26.0-36.3) seconds Sodium (133-145) mmol/L Potassium Chloride (101-111) mmol/L Carbon Dioxide (22-32) mmol/L Anion Gap BUN (6-24) mg/dL Creatinine (0.51-0.95) mg/dL Est GFR ( Amer) (>60) Est GFR (Non-Af Amer) (>60) BUN/Creatinine Ratio (8-20) Glucose (70-100) mg/dL Lactic Acid 1.4 (0.5-2.0) mmol/L Calcium (8.6-10.3) mg/dL Total Bilirubin (0.2-1.0) mg/dL AST (13-39) U/L ALT (7-52) U/L Alkaline Phosphatase (34-104) U/L Troponin I Total Protein (6.4-8.9) g/dL Albumin (3.2-5.2) g/dL Globulin (2-4) g/dL Albumin/Globulin Ratio (1-3) Blood Type O Positive Antibody Screen Pending Microbiology and Other Data: Microbiology 11/03/16 00:40 Nasal Screen MRSA (PCR)(DONA) - Final Nasal Mrsa Negative Assess/Plan/Problems-Billing Ms Sorensen is an 81 yo F who has a h/o PAD, possible TIA in the past, HTN and hypothyroidism who presented to the ER with c/o fall and L hip pain. - Patient Problems (1) Fracture of left hip Comment: POD#3 s/p cannulated screw fixation. Continue PT/OT. Continue with pain control with [place]. DVT prophylaxis per orthopedics (lovenox). (2) Acute blood loss anemia Comment: Stable. No indication for transfusion. (3) Hypokalemia Comment: Resolved. (4) HTN (hypertension) Comment: BP is under good control off antihypertensives. Monitor. (5) Hypothyroidism Comment: Continue current dose of synthroid. (6) DVT prophylaxis Comment: Lovenox (7) Full code status Status and Disposition: Inpatient. Discharge to [facility].
[2016-11-06 11:24] VITALS: BP 157/72
--- NOTE | 2016-11-06 12:05 | DS ---
DATE OF ADMISSION: 11/02/2016. DATE OF DISCHARGE: 11/06/2016. ATTENDING PHYSICIAN: Dr. Alireza Collins *(dictation provided by Ronit Morales NP) . PRIMARY DIAGNOSES: 1. Left femoral neck fracture status post a cannulated screw fixation. 2. Acute blood loss anemia. SECONDARY DIAGNOSES: 1. Severe osteoarthritis. 2. Hypokalemia. 3. Bilateral lower extremity wounds. 4. Peripheral arterial disease identified on CTA abdomen aorta and run off. 5. Hypertension. 6. Hypothyroidism. MEDICATIONS AT THE TIME OF DISCHARGE: 1. Potassium chloride 20 mEq p.o. daily. 2. Gabapentin 300 mg p.o. b.i.d. (new lower dose). 3. [place] 10/325 one tab p.o. q.6 hours prn pain. 4. Synthroid 125 mcg p.o. daily. 5. Aspirin 81 mg p.o. daily. 6. Dulcolax prn. 7. Docusate 100 mg p.o. b.i.d. 8. Lovenox 30 mg subcutaneous q.24 hours. 9. Magnesium hydroxide 30 ml p.o. q.6 hours prn. 10. Polyethylene glycol 17 gm p.o. daily prn. HOSPITAL COURSE: Ms. Sorensen is an 81-year-old female with a past medical history of osteoarthritis and peripheral arterial disease, as well as hypertension who presented to the hospital on 11/02/2016 with concern for hip pain after fall. Please see the dictated history and physical from Dr. Yris Segura for complete details. In brief, the patient had had a mechanical fall from a chair at home and had immediate left hip pain. In the emergency room, she was found to have a left femoral neck fracture. Preoperatively, the patient had an EKG which showed no evidence of ischemia. She went on for a transthoracic echocardiogram which the following: "Mild to moderate concentric left ventricular hypertrophy is observed. Global left ventricular wall motion and contractility are within normal Limits. There is normal left ventricular systolic function. The estimated ejection fraction is 55 to 60 percent. There are no significant changes when compared to the previous study done on 01/09/2016." The patient was seen in consultation by Dr. Mike who took her to the operating room on 11/03/2016 for a cannulated screw fixation. In the immediate postoperative period, the patient has evidence of anemia, but it has not been significant with a hemoglobin of 8.4 and hematocrit of 27. She is asymptomatic and has stable vital signs. The patient has been progressing with physical therapy, though very slowly and has been deemed to need subacute rehab before hopefully returning home to independent living. The patient has been accepted at [facility] and will be transferring there today. DISPOSITION: To [facility]. DIET: Regular. ACTIVITY: 50 percent partial weightbearing on the left lower extremity. FOLLOW-UP PLAN: 1. Please follow-up with Dr. Garvin at the time of discharge of discharge from the longterm. 2. Please follow-up with Dr. Mike in the next 10 to 14 days regarding assessment of postop and for duration of Lovenox therapy. Approximately 60 minutes were spent in the discharge of this patient and more than half that time was spent with her at the bedside reviewing the events leading up to this hospitalization, performing the physical examination and reviewing the plan of care. RONIT MORALES NP CC: Dr. Garvin * [id number]/CPS #: [id number] MARÍA
== END 2016-11-06 13:20 | DRG 536 ==
LOC: ED 13:48 → MEDTELE 14:39 → SSU 11-03 17:50
PROVIDERS: ADMIT Hospitalist; ATTEND Internal Medicine
PROC: 0SSB34Z Reposition Left Hip Joint with Internal Fixation Device, Percutaneous Approach (ICD-10-PCS; principal; 2016-11-03 14:30)
DX: S72.012A Unspecified intracapsular fracture of left femur, initial encounter for closed fracture (principal); I73.9 Peripheral vascular disease, unspecified; L97.911 Non-pressure chronic ulcer of unspecified part of right lower leg limited to breakdown of skin; D62 Acute posthemorrhagic anemia; M19.91 Primary osteoarthritis, unspecified site; E87.6 Hypokalemia; I10 Essential (primary) hypertension; E03.9 Hypothyroidism, unspecified; Z96.641 Presence of right artificial hip joint; Z96.651 Presence of right artificial knee joint; R74.8 Abnormal levels of other serum enzymes; D72.820 Lymphocytosis (symptomatic); G89.29 Other chronic pain; W08.XXXA Fall from other furniture, initial encounter; Z80.3 Family history of malignant neoplasm of breast; Z88.0 Allergy status to penicillin; Z79.899 Other long term (current) drug therapy; Y92.030 Kitchen in apartment as the place of occurrence of the external cause
CPT/HCPCS: 36415; 76000; 80048; 80053; 82550; 83605; 83735; 84443; 84484; 85025; 85027; 85610; 85730; 86850; 86900; 86901; 87641; 93005; 93306; 97597; 99202; A9270-GY; C1713; G0463; J1644; J1650; J2704; J3010; J3480

== ENCOUNTER 2017-02-02 08:37 | Inpatient (IN) | payer MEDICARE ==
[2017-02-02] MEDS ORDERED: NS 0.9% 1000 ML* 1,000 ML IV ONE (09:18)
[2017-02-02 10:13] LABS: Hematocrit 30 % (35-47); Mean Corpuscular HGB Conc 31 g/dl (31-36); Mean Corpuscular Hemoglobin 23 pg (27-31); Mean Corpuscular Volume 76 fL (80-97); Mean Platelet Volume 7 um3 (7.4-10.4); Red Cell Distribution Width 19 % (10.5-15); White Blood Count 8.8 10^3/ul (3.5-10.8)
[2017-02-02 10:33] LABS: Albumin 2.8 g/dL (3.2-5.2); BUN/Creatinine Ratio 19.2 (8-20); Calcium 8.5 mg/dL (8.6-10.3); EGFR African American 144.5 (>60); EGFR Non-African American 112.3 (>60); Globulin 2.8 g/dL (2-4); HDL Cholesterol 31.9 mg/dL; Potassium 3.8 mmol/L (3.5-5.0); Total Bilirubin 0.6 mg/dL (0.2-1.0); Total Protein 5.6 g/dL (6.4-8.9)
[2017-02-02 10:41] LABS: Urine Bacteria Absent (Absent); Urine Bilirubin Negative (Negative); Urine Glucose Negative (Negative); Urine Nitrite Negative (Negative)
[2017-02-02 11:08] LABS: Benzodiazepine Urine Screen None Detected (None Detect)
--- NOTE | 2017-02-02 11:16 | RAD ---
INDICATION: Altered mental status. COMPARISON: Comparison is made with a prior chest x-ray study from January 08, 2016. TECHNIQUE: A portable view of the chest was obtained. FINDINGS: The heart appears mildly enlarged. The lungs are underinflated and grossly clear. No pleural effusion is seen. IMPRESSION: NO EVIDENCE FOR ACUTE FINDING.
--- NOTE | 2017-02-02 11:21 | RAD ---
INDICATION: Right hip injury. COMPARISON: Comparison is made with a prior x-ray study of the left hip and pelvis from January 26, 2017. TECHNIQUE: An AP view of the pelvis and frontal and lateral views of the right hip were obtained. FINDINGS: The exam is limited due to positioning. The patient is status post total right hip replacement surgery. The bones and prostheses are in normal alignment. The patient is also status post operative reduction and internal fixation of a left subcapital femoral neck fracture. There are [address] The bones are in normal alignment and unchanged. No acute fracture is seen. IMPRESSION: LIMITED STUDY, POSTSURGICAL CHANGES, NO EVIDENCE FOR ACUTE FRACTURE, IF THE PATIENT'S SYMPTOMS PERSIST RECOMMEND FOLLOW-UP IMAGING.
--- NOTE | 2017-02-02 12:05 | RAD ---
HISTORY: Altered mental status, slurred speech, facial droop, left-sided weakness COMPARISONS: January 08, 2016, MRI dated January 09, 2016 TECHNIQUE: Multiple contiguous axial CT scans were obtained of the head without intravenous contrast. FINDINGS: HEMORRHAGE/INFARCT: There is no hemorrhage or acute infarct. MASSES/SHIFT: There is no mass or shift. EXTRA-AXIAL SPACES: There are no extra-axial fluid collections. SULCI AND VENTRICLES: There is diffuse and proportional enlargement of the sulci and ventricles. CEREBRUM: There is hypoattenuation of the periventricular and subcortical white matter. BRAINSTEM: There are no focal parenchymal abnormalities. CEREBELLUM: There are no focal parenchymal abnormalities. VESSELS: The vessels are grossly normal. PARANASAL SINUSES: The paranasal sinuses are clear. ORBITS: The orbits are unremarkable. BONES AND SOFT TISSUE: No bone or soft tissue abnormalities are noted. OTHER: None IMPRESSION: NO ACUTE INTRACRANIAL PATHOLOGY. DIFFUSE INVOLUTIONAL CHANGE WITH CHRONIC SMALL VESSEL ISCHEMIC CHANGES.
[2017-02-02] MEDS ORDERED: Bisacodyl SUPP* 10 MG SUPP PR PRN (12:28)
[2017-02-02] MEDS: Aspirin TAB* 325 MG PO SCH (14:05)
[2017-02-02] MEDS: Atorvastatin* 20 MG TAB PO SCH ×2 (14:05→18:25)
[2017-02-02] MEDS: Heparin VIAL(*) 5000 UNITS/ML VIAL (FIVE THOUSAND) SUBCUT SCH ×2 (14:06→21:04)
[2017-02-02] MEDS ORDERED: HYDROcodone/ACETAMIN 5-325 MG* 1 TAB PO PRN (15:16)
[2017-02-02 15:29] LABS: C Reactive Protein 82.24 mg/L (< 5.00)
[2017-02-02] MEDS: traMADol TAB* 50 MG PO PRN (15:34)
--- NOTE | 2017-02-02 17:47 | ED ---
pepe Hartley Timothy, scribed for Al Cosme MD on 02/02/17 at 0854 . Altered Mental Status - HPI Summary HPI Summary: Ángela Sorensen is an 82 yo female presenting to [facility] with AMS, last known well is 02/01/17, per [facility] staff. Her son is present in room. She is having some dificulty with garbled speech. She denies any weakness in her extremities or difficulty walking. The attendant last night states she fell last night, and she has pain in her right and left hip. She denies any RANGEL, fevers, chills, cough , urinary Sx, abd pain, back pain. Her MHx includes hypothyroidism, HTN, dementia, arthritis. - History Of Current Complaint Stated Complaint: AMS Time Seen by Provider: 02/02/17 09:07 Hx Obtained From: Patient Last Known Well Date: 02/01/17 Onset/Duration: Unknown, Still Present Timing: Constant Severity Initially: Moderate Severity Currently: Moderate Character: Confusion Aggravating Factor(s): Nothing Alleviating Factor(s): Nothing - Allergies/Home Medications Allergies/Adverse Reactions: Allergies Allergy/AdvReac Type Severity Reaction Status Date / Time Penicillins [PCN] Allergy Severe Anaphylatic Verified 02/02/17 09:10 Shock Home Medications: Home Medications Ascorbic Acid TAB* [Vitamin C TAB*] 500 mg PO DAILY 02/02/17 [History Confirmed 02/02/17] Docusate CAP* [Colace Cap*] 200 mg PO DAILY 02/02/17 [History Confirmed 02/02/17 ] Ferrous Sulfate TAB* 325 mg PO DAILY 02/02/17 [History Confirmed 02/02/17] Furosemide TAB* [Lasix TAB*] 20 mg PO DAILY 02/02/17 [History Confirmed 02/02/17 ] PMH/Surg Hx/FS Hx/Imm Hx Endocrine/Hematology History: Reports: Hx Thyroid Disease - hypo Denies: Hx Diabetes Cardiovascular History: Reports: Hx Hypertension Denies: Hx Pacemaker/ICD Respiratory History: Denies: Hx Asthma, Hx Chronic Obstructive Pulmonary Disease (COPD) GI History: Denies: Hx Ulcer History: Denies: Hx Renal Disease Musculoskeletal History: Reports: Hx Arthritis Sensory History: Reports: Hx Contacts or Glasses Denies: Hx Hearing Aid Opthamlomology History: Reports: Hx Contacts or Glasses Neurological History: Reports: Hx Dementia Psychiatric History: Denies: Hx Panic Disorder - Cancer History Hx Chemotherapy: No Hx Radiation Therapy: No - Surgical History Surgery Procedure, Year, and Place: R knee surgery 2007. Multiple back surgeries. RT HIP AND RT KNEE REPLACEMENT. Appendectomy. T&A. 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, LT LEG Denies: Hx Hepatitis, Hx Human Immunodeficiency Virus (HIV), Traveled Outside the [place] in Last 30 Days - Family History Known Family History: Positive: Other - Breast CA Negative: Cardiac Disease, Hypertension, Diabetes Family History: FHx of breast CA - mother - Social History Alcohol Use: None Substance Use Type: Reports: None Smoking Status (MU): Never Smoked Tobacco Have You Smoked in the Last Year: No Review of Systems Constitutional: Negative Negative: Fever, Chills Eyes: Negative ENT: Negative Cardiovascular: Negative Respiratory: Negative Negative: Cough Gastrointestinal: Negative Negative: Abdominal Pain Genitourinary: Negative Positive: no symptoms reported Musculoskeletal: Other - right hip pain Negative: Other - back pain Skin: Negative Neurological: Other - AMS, speech garbling, not oriented Negative: Headache Psychological: Normal All Other Systems Reviewed And Are Negative: Yes Physical Exam - Summary Physical Exam Summary: The patient is well-nourished in no acute distress and in no acute pain. The skin is warm and dry and skin color reflects adequate perfusion. Bruising and swelling of left hand, mostly 3rd and 4th metacarpal. HEENT: The head is normocephalic and atraumatic. The pupils are equal and reactive. EOMI. The conjunctivae are clear and without drainage. Nares are patent and without drainage. Mouth reveals moist mucous membranes and the throat is without erythema and exudate. The external ears are intact. The ear canals are patent and without drainage. The tympanic membranes are intact. Neck is supple with full range of motion and non-tender. There are no carotid bruits. There is no neck vein distension. Respiratory: Chest is non-tender. Lungs are clear to auscultation and breath sounds are symmetrical and equal. Cardiovascular: Hear is regular rate and rhythm. There is no murmur or rub auscultated. There is no peripheral edema and pulses are symmetrical and equal. Abdomen: The abdomen is soft and non-tender. There are normal bowel sounds heard in all four quadrants and there is no organomegaly palpated. Musculoskeletal: There is no back pain noted. Extremities are non-tender with full range of motion. There is good capillary refill. There is no peripheral edema or calf tenderness elicited. Marked tenderness in right and left hip. Neurological: Patient is alert and not oriented to time. The patient has symmetrical motor strength in all four extremities. Cranial nerves are grossly intact. Deep tendon reflexes are symmetrical and equal in all four extremities. Psychiatric: The patient has an appropriate affect and does not exhibit any anxiety or depression. Triage Information Reviewed: Yes Vital Signs On Initial Exam: Initial Vitals Temp Pulse Resp BP Pulse Ox 98.3 F 72 14 156/71 94 02/02/17 08:40 02/02/17 08:40 02/02/17 08:40 02/02/17 08:40 02/02/17 08:40 Vital Signs Reviewed: Yes Diagnostics - Vital Signs Vital Signs Temp Pulse Resp BP Pulse Ox 02/02/17 08:40 98.3 F 72 14 156/71 94 - Laboratory Lab Results: Lab Results 02/02/17 02/02/17 02/02/17 Range/Units 10:00 10:00 10:00 WBC 8.8 (3.5-10.8) 10^3/ul RBC 3.90 L (4.0-5.4) 10^6/ul Hgb 9.0 L (12.0-16.0) g/dl Hct 30 L (35-47) % MCV 76 L (80-97) fL MCH 23 L (27-31) pg MCHC 31 (31-36) g/dl RDW 19 H (10.5-15) % Plt Count 316 (150-450) 10^3/ul MPV 7 L (7.4-10.4) um3 Neut % (Auto) 76.0 (38-83) % Lymph % (Auto) 9.3 L (25-47) % [place] % (Auto) 13.7 H (1-9) % Eos % (Auto) 0.5 (0-6) % Baso % (Auto) 0.5 (0-2) % Absolute Neuts (auto) 6.7 (1.5-7.7) 10^3/ul Absolute Lymphs (auto) 0.8 L (1.0-4.8) 10^3/ul Absolute Monos (auto) 1.2 H (0-0.8) 10^3/ul Absolute Eos (auto) 0 (0-0.6) 10^3/ul Absolute Basos (auto) 0 (0-0.2) 10^3/ul Absolute Nucleated RBC 0 10^3/ul Nucleated RBC % 0 INR (Anticoag Therapy) 1.02 (0.89-1.11) Sodium 139 (133-145) mmol/L Potassium 3.8 (3.5-5.0) mmol/L Chloride 105 (101-111) mmol/L Carbon Dioxide 29 (22-32) mmol/L Anion Gap 5 (2-11) mmol/L BUN 10 (6-24) mg/dL Creatinine 0.52 (0.51-0.95) mg/dL Est GFR ( Amer) 144.5 (>60) Est GFR (Non-Af Amer) 112.3 (>60) BUN/Creatinine Ratio 19.2 (8-20) Glucose 106 H (70-100) mg/dL Lactic Acid (0.5-2.0) mmol/L Calcium 8.5 L (8.6-10.3) mg/dL Total Bilirubin 0.60 (0.2-1.0) mg/dL AST 11 L (13-39) U/L ALT 9 (7-52) U/L Alkaline Phosphatase 84 (34-104) U/L Troponin I 0.00 (<0.04) ng/mL C-Reactive Protein 82.24 H (< 5.00) mg/L Total Protein 5.6 L (6.4-8.9) g/dL Albumin 2.8 L (3.2-5.2) g/dL Globulin 2.8 (2-4) g/dL Albumin/Globulin Ratio 1.0 (1-3) Triglycerides 88 mg/dL Cholesterol 121 mg/dL LDL Cholesterol 72 mg/dL HDL Cholesterol 31.9 mg/dL Urine Color Urine Appearance Urine pH (5-9) Ur Specific [place] (1.010-1.030) Urine Protein (Negative) Urine Ketones (Negative) Urine Blood (Negative) Urine Nitrate (Negative) Urine Bilirubin (Negative) Urine Urobilinogen (Negative) Ur Leukocyte Esterase (Negative) Urine WBC (Auto) (Absent) Urine RBC (Auto) (Absent) Ur Squamous Epith Cells (Absent) Urine Bacteria (Absent) Urine Glucose (Negative) Urine Ascorbic Acid (Negative) Urine Opiates Screen (None Detect) Ur Barbiturates Screen (None Detect) Ur Phencyclidine Scrn (None Detect) Ur Amphetamines Screen (None Detect) U Benzodiazepines Scrn (None Detect) Urine Cocaine Screen (None Detect) U Cannabinoids Screen (None Detect) Blood Type Antibody Screen 02/02/17 02/02/17 02/02/17 Range/Units 10:00 10:00 10:15 WBC (3.5-10.8) 10^3/ul RBC (4.0-5.4) 10^6/ul Hgb (12.0-16.0) g/dl Hct (35-47) % MCV (80-97) fL MCH (27-31) pg MCHC (31-36) g/dl RDW (10.5-15) % Plt Count (150-450) 10^3/ul MPV (7.4-10.4) um3 Neut % (Auto) (38-83) % Lymph % (Auto) (25-47) % [place] % (Auto) (1-9) % Eos % (Auto) (0-6) % Baso % (Auto) (0-2) % Absolute Neuts (auto) (1.5-7.7) 10^3/ul Absolute Lymphs (auto) (1.0-4.8) 10^3/ul Absolute Monos (auto) (0-0.8) 10^3/ul Absolute Eos (auto) (0-0.6) 10^3/ul Absolute Basos (auto) (0-0.2) 10^3/ul Absolute Nucleated RBC 10^3/ul Nucleated RBC % INR (Anticoag Therapy) (0.89-1.11) Sodium (133-145) mmol/L Potassium (3.5-5.0) mmol/L Chloride (101-111) mmol/L Carbon Dioxide (22-32) mmol/L Anion Gap (2-11) mmol/L BUN (6-24) mg/dL Creatinine (0.51-0.95) mg/dL Est GFR ( Amer) (>60) Est GFR (Non-Af Amer) (>60) BUN/Creatinine Ratio (8-20) Glucose (70-100) mg/dL Lactic Acid 0.8 (0.5-2.0) mmol/L Calcium (8.6-10.3) mg/dL Total Bilirubin (0.2-1.0) mg/dL AST (13-39) U/L ALT (7-52) U/L Alkaline Phosphatase (34-104) U/L Troponin I (<0.04) ng/mL C-Reactive Protein (< 5.00) mg/L Total Protein (6.4-8.9) g/dL Albumin (3.2-5.2) g/dL Globulin (2-4) g/dL Albumin/Globulin Ratio (1-3) Triglycerides mg/dL Cholesterol mg/dL LDL Cholesterol mg/dL HDL Cholesterol mg/dL Urine Color Yellow Urine Appearance Clear Urine pH 8.0 (5-9) Ur Specific [place] 1.017 (1.010-1.030) Urine Protein 1+(30 mg/dl) H (Negative) Urine Ketones Negative (Negative) Urine Blood Negative (Negative) Urine Nitrate Negative (Negative) Urine Bilirubin Negative (Negative) Urine Urobilinogen Negative (Negative) Ur Leukocyte Esterase Negative (Negative) Urine WBC (Auto) Absent (Absent) Urine RBC (Auto) Absent (Absent) Ur Squamous Epith Cells Present H (Absent) Urine Bacteria Absent (Absent) Urine Glucose Negative (Negative) Urine Ascorbic Acid * H (Negative) Urine Opiates Screen (None Detect) Ur Barbiturates Screen (None Detect) Ur Phencyclidine Scrn (None Detect) Ur Amphetamines Screen (None Detect) U Benzodiazepines Scrn (None Detect) Urine Cocaine Screen (None Detect) U Cannabinoids Screen (None Detect) Blood Type O Positive Antibody Screen Negative 02/02/17 Range/Units 10:15 WBC (3.5-10.8) 10^3/ul RBC (4.0-5.4) 10^6/ul Hgb (12.0-16.0) g/dl Hct (35-47) % MCV (80-97) fL MCH (27-31) pg MCHC (31-36) g/dl RDW (10.5-15) % Plt Count (150-450) 10^3/ul MPV (7.4-10.4) um3 Neut % (Auto) (38-83) % Lymph % (Auto) (25-47) % [place] % (Auto) (1-9) % Eos % (Auto) (0-6) % Baso % (Auto) (0-2) % Absolute Neuts (auto) (1.5-7.7) 10^3/ul Absolute Lymphs (auto) (1.0-4.8) 10^3/ul Absolute Monos (auto) (0-0.8) 10^3/ul Absolute Eos (auto) (0-0.6) 10^3/ul Absolute Basos (auto) (0-0.2) 10^3/ul Absolute Nucleated RBC 10^3/ul Nucleated RBC % INR (Anticoag Therapy) (0.89-1.11) Sodium (133-145) mmol/L Potassium (3.5-5.0) mmol/L Chloride (101-111) mmol/L Carbon Dioxide (22-32) mmol/L Anion Gap (2-11) mmol/L BUN (6-24) mg/dL Creatinine (0.51-0.95) mg/dL Est GFR ( Amer) (>60) Est GFR (Non-Af Amer) (>60) BUN/Creatinine Ratio (8-20) Glucose (70-100) mg/dL Lactic Acid (0.5-2.0) mmol/L Calcium (8.6-10.3) mg/dL Total Bilirubin (0.2-1.0) mg/dL AST (13-39) U/L ALT (7-52) U/L Alkaline Phosphatase (34-104) U/L Troponin I (<0.04) ng/mL C-Reactive Protein (< 5.00) mg/L Total Protein (6.4-8.9) g/dL Albumin (3.2-5.2) g/dL Globulin (2-4) g/dL Albumin/Globulin Ratio (1-3) Triglycerides mg/dL Cholesterol mg/dL LDL Cholesterol mg/dL HDL Cholesterol mg/dL Urine Color Urine Appearance Urine pH (5-9) Ur Specific [place] (1.010-1.030) Urine Protein (Negative) Urine Ketones (Negative) Urine Blood (Negative) Urine Nitrate (Negative) Urine Bilirubin (Negative) Urine Urobilinogen (Negative) Ur Leukocyte Esterase (Negative) Urine WBC (Auto) (Absent) Urine RBC (Auto) (Absent) Ur Squamous Epith Cells (Absent) Urine Bacteria (Absent) Urine Glucose (Negative) Urine Ascorbic Acid (Negative) Urine Opiates Screen Presumptive positive H (None Detect) Ur Barbiturates Screen None detected (None Detect) Ur Phencyclidine Scrn None detected (None Detect) Ur Amphetamines Screen None detected (None Detect) U Benzodiazepines Scrn None detected (None Detect) Urine Cocaine Screen None detected (None Detect) U Cannabinoids Screen None detected (None Detect) Blood Type Antibody Screen Result Diagrams: 02/02/17 10:00 02/02/17 10:00 Lab Statement: Any lab studies that have been ordered have been reviewed, and results considered in the medical decision making process. - Radiology CXR Xray Interpretation: No Acute Changes - IMPRESSION: NO EVIDENCE FOR ACUTE FINDING. Radiology Interpretation Completed By: Radiologist R Hip Xray Interpretation: No Acute Changes - IMPRESSION: LIMITED STUDY, POSTSURGICAL CHANGES, NO EVIDENCE FOR ACUTE FRACTURE, IF THE PATIENT'S SYMPTOMS PERSIST RECOMMEND FOLLOW-UP IMAGING. Radiology Interpretation Completed By: Radiologist - CT Brain CT Interpretation: No Acute Changes - IMPRESSION: NO ACUTE INTRACRANIAL PATHOLOGY. DIFFUSE INVOLUTIONAL CHANGE WITH CHRONIC SMALL VESSEL ISCHEMIC CHANGES. CT Interpretation Completed By: Radiologist - EKG 0935 Cardiac Rate: NL - 74 BPM EKG Interpretation: NSR @ 74 BPM, PAC's, PRWP, nonspecific ST changes in lateral leads. National Institutes Of Health - NIH Scale Level of Consciousness: Alert/Keenly Responsive Ask Patient the Month and His/Her Age: Neither Correct/Aphasic Ask Pt to Open/Close Eyes and Ui Developer With Angular Js/Release Non-Paretic Hand: One Correctly Best Gaze (Only Horizontal Eye Movement): Normal Visual Field Testing: No Visual Loss Facial Paresis-Pt to Smile & Close Eyes or Grimace Symmetry: Minor Paralysis - slight left facial droop Motor Function - Right Arm: No Drift-Holds 10 Seconds Motor Function - Left Arm: No Drift-Holds 10 Seconds Motor Function - Right Leg: No Drift-Holds 10 Seconds Motor Function - Left Leg: No Drift-Holds 10 Seconds Limb Ataxia-Must be out of Proportion to Weakness Present: Present in One Limb - LUE Sensory (Use Pinprick to Test Arms/Legs/Trunk/Face): Normal Best Language (Describe Picture, Name Items): Some Loss Dysarthria (Read Several Words): Slurs Some Words Extinction and Inattention: No Abnormality Total Score: 7 Altered Mental Statu Course/Dx - Course Assessment/Plan: Ángela Sorensen is an 82 yo female presenting to [facility] with AMS since this morning with garbled speech and is not oriented to time. She had a fall last night, per the attendant via her son. In the ED she received IV fluids. Her CXR suggested no acute findings. Her EKG suggested nonspecific ST changes in the lateral leads and PRWP (see documentation). Her R hip XR suggests no acute fracture. Her CT brain suggests no acute intracranial pathology.After clinical examination and review of her imaging and lab studies, as well as discussion with Dr. Larsen, she will be admitted to [facility] with CVA and AMS. - Diagnoses Differential Diagnosis/HQI/PQRI: CVA Discharge Diagnoses: CVA (cerebral vascular accident), Altered mental status - Provider Notifications Discussed Care Of Patient With: 1129 - Dr. Larsen (hospitalist) - discussed Pt condition, accepts Pt for admission. 1137 - radiology - requested CT brain be completed. - Critical Care Time Critical Care Time: 30-74 min Discharge - Discharge Plan Condition: Stable Disposition: ADMITTED TO [facility] Discharge Disposition Comment: CVA and AMS The documentation as recorded by the pepe hastings Timothy accurately reflects the service I personally performed and the decisions made by me, Al Cosme MD.
--- NOTE | 2017-02-02 18:18 | CONSULT ---
Consult Consult: 02/02/17 neurology consult 82 year old RHF, presenting with confusion, language dysfunction and per some notes possible facial asymmetry. She is accompanied by her son, who notes good days (when she can have a lucid conversation) and bad days, with mumbling and confusion. She was hospitalized for fall and L hip fx s/p surg 3 months ago, and has been in an LAF since; prior to that she was living in her own place. Her son notes that she needs help with at least some ADLs and has leg wounds limiting her ambulation, and that there is likely at least some baseline dementia. She had negative imaging a year ago, also done for confusion, and was seen by dr Abreu in consultation at that time. She is on ASA per 11/14 discharge summary, although dr Abreu a year ago suggested that she was non compliant. Allergies/Meds - per nov PMH - HTN, thyroid, OA, PAD b/l hip surg, R TKR FH - NC SH - DNR; lives at [place]; no etoh or tob ROS - 10 point review limited by encephalopathy general Examination: no apparent distress, no edema, female of stated age; legs bandaged Neurologic Examination Mental Status: alert; oriented to self; identified son but could not tell me his name; fluent but frequently tangential and mumbling, some perseveration; could not tell me year, location or president; affect reactive, no clear neglect Cranial Nerves: Funduscopy deferred; III-XII intact; bedoya full to confrontation; PERRL Motor: normal bulk, tone and power; no drift or ivy tremor, but tremulous with hands outstretched Sensory: vibration and touch are grossly intact Reflexes: 2 arms; 1+ knees. 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 Her neuro exam is non localizing save cognitive issues; her imaging is non localizing for any acute insults. The etiology of her elevated inflammatory marker is not yet clear ; further workup at the behest of the med team could include ucx, rpr, eval of leg wounds. She may assisted benefit from outpt cognitive testing and treatment with a cholinesterase inhibitor.
--- NOTE | 2017-02-02 18:47 | RAD ---
Indication: Dysphasia. Comparison: February 02, 2017 CT brain and January 09, 2016 MRI. Technique: Penxya 1.5 Sera [id number] with GEM suite. Noncontrast MRI brain limited to sagittal T1, axial DWI, axial T1, axial T2 FLAIR, axial T2, and ADC map. Exam limited due to poor patient tolerance for MRI exam and motion. Report: Motion artifact severely limits the diffusion weighted series. There is no gross region of restricted diffusion to confirm acute or subacute infarct. No intra or extra-axial fluid collection evident. Moderate prominence of the cerebral sulci and ventricles reflecting atrophy. Patent basal cisterns. Grossly symmetric increased T2 signal in the periventricular and subcortical white matter of the cerebral hemispheres grossly unchanged from the January 09, 2016 MRI while not entirely specific is most consistent with chronic small vessel ischemic disease. Preserved major intracranial flow-voids. Unremarkable orbital contents. Grossly clear paranasal sinuses and mastoid air spaces. No gross lesions of the calvarium or skull base evident. IMPRESSION: 1. Atrophy and stigmata of chronic small vessel ischemic disease. 2. While the examination is limited there is no gross evidence for acute or subacute ischemia. 3. Negative for mass effect.
--- NOTE | 2017-02-02 21:17 | HP ---
HISTORY AND PHYSICAL:* ADDENDUM: Mrs. Sorensen is an 82-year-old female who presented to the hospital with altered mental status and mild flattening of left nasolabial fold. At this point, she is going to be admitted to the hospital with a diagnosis of possible CVA. For further details of the patient's presentation and plan, please see history and physical dictated by Ronit Morales NP on 02/02/17 , with which I agree. [id number]/[facility] #: [id number] MARÍA
[2017-02-02] MEDS: Acetaminophen TAB* 325 MG PO PRN (21:23)
--- NOTE | 2017-02-02 22:17 | HP ---
ATTENDING'S ADDENDUM NOW INCLUDED ON THIS REPORT HOSPITAL MEDICINE HISTORY AND PHYSICAL: DATE OF ADMISSION: 02/02/17 PRIMARY CARE PHYSICIAN: Dr. Garvin. ATTENDING PHYSICIAN: Dr. Tisha Larsen*(dictation provided by Ronit Morales NP) CHIEF COMPLAINT: Difficulty word finding, confusion, and weakness. HISTORY OF PRESENT ILLNESS: Ms. Sorensen is an 82-year-old female with a past medical history of bilateral chronic lower extremity wound, followed at the wound care clinic as well as hypertension, hypothyroidism, presents to the hospital today with concern for weakness and confusion and word finding difficulty. Ms. Sorensen's daughter is at the bedside and she provides the history of present illness due to Ms. Sorensen's confusion. Per the report at baseline, Ms. Sorensen is alert. She is oriented x3. She converses normally. She gets around with a walker at [place]. She was noted to have increased weakness over the past couple of weeks, though she has remained independent. Daughter spoke to the patient last night on the phone and she was at her baseline. There was no complaint of any problem including no complaints of fever, chills, chest pain, shortness of breath, nausea, or abdominal pain. The nursing staff called the patient's daughter this morning when they noted that the patient seemed weaker and confused, was having difficulty speaking and finding words. In the emergency room, Ms. Sorensen is confused and also having difficulty finding words. Her speech is a bit garbled. She is noted to have a left-sided facial labile fold flattening. No other acute finding. She has anemia, which is chronic with a hemoglobin of 9. She has no leukocytosis. Her urinalysis shows no evidence of infection. Her chest x-ray is clear. She is afebrile. Vitals are stable. She did have a CT of the brain, which showed no acute abnormality. She has also had a fall. The patient's daughter also reports the patient has had multiple falls recently including one this morning. The patient was complaining of pain to her right hip, but there is no evidence of fracture on the x-ray. PAST MEDICAL HISTORY: 1. Osteoarthritis. 2. Chronic bilateral lower extremity wounds, followed at the wound clinic. 3. Peripheral arterial disease. 4. Hypertension. 5. Hypothyroidism. 6. History of right knee replacement. 7. History of right hip replacement. MEDICATIONS: 1. Aspirin 81 mg p.o. daily. 2. Gabapentin 300 mg p.o. b.i.d. 3. Hydrocodone/acetaminophen 10/325 one tab p.o. q.6 hours p.r.n. 4. Ascorbic acid 500 mg p.o. daily. 5. Bisacodyl 10 mg P.R. daily. 6. Docusate 200 mg p.o. daily. 7. Ferrous sulfate 325 mg p.o. daily. 8. Furosemide 20 mg daily. 9. Levothyroxine 125 mcg p.o. daily. ALLERGIES: To PENICILLIN. FAMILY HISTORY: Per the electronic medical record, the patient's mother at 81 from breast cancer and father at 97 of old age. SOCIAL HISTORY: The patient was nonsmoker, but she has quit. There is no report of alcohol or tobacco use. As stated in the past, her daughter, Yelena, and son, Duc, are the healthcare proxies. REVIEW OF SYSTEMS: Unobtainable. PHYSICAL EXAMINATION GENERAL: Ms. Sorensen is lying in the bed. She is in no acute distress. VITAL SIGNS: Temperature 99.8, pulse 75, respiratory rate 16, O2 saturation 95 % on room air, blood pressure 132/60. LUNGS: Clear to auscultation bilaterally with no accessory muscle use and good aeration. HEART: S1 and S2. No murmur, rubs, or gallop and regular. ABDOMEN: Soft, nontender with bowel sounds positive x4. EXTREMITIES: No cyanosis or edema. SKIN: The patient has severe bilateral lower extremity wounds on both legs ranging from the ankle to slightly above mid hagen. There is no significant redness or purulent drainage noted. NEUROLOGIC: She is alert. She is oriented to herself but she states her name is Ángela but gives a different last name other than Franchesca. She does not know where she is. She speaks in garbled speech, but is able to string together several sentences at times. She has a left-sided nasolabial fold flattening. She has bilateral extremities +5 strength, but she does evidence some generalized weakness. LABORATORY DATA/DIAGNOSTIC STUDIES: WBC 8.8, hemoglobin 9.0, hematocrit 30, and platelet count 316. INR 1.02. Sodium 139, potassium 3.8, chloride 105, serum bicarbonate 29, BUN 10, creatinine 0.52, glucose 106, lactic acid 0.8, troponin 0.00. Urine shows no evidence of infection. Toxicology screen is positive only for opiates. Brain CT shows the following: "No acute intracranial pathology, diffuse involutional change with chronic small vessel ischemic changes. Chest x- ray shows the following: "No evidence for acute findings." EKG shows a sinus rhythm with a heart rate of about 70 and no evidence of ischemia. ASSESSMENT AND PLAN: Ms. Sorensen is an 82-year-old female with past medical history of osteoarthritis, hypertension, hyperlipidemia, and hypothyroidism, and chronic bilateral lower extremities wounds, who presents today to the hospital with concern for confusion, difficulty word finding, and left nasolabial fold flattening. Plans are for inpatient status as I expect her length of stay to be greater than 2 days for the following. 1. Dysphasia with confusion. Overall, the patient's examination is most consistent with delirium based on the way that she is speaking today and confused; however, she is also having some garbled speech and she does have nasolabial fold flattening, so I am also concerned for a stroke. The patient's CT of the brain is normal. Plan to consult Dr. Aldridge, who will be seeing the patient today and he will be advising if whether or not MRI is indicated based on his clinical exam. In terms of further stroke workup, the patient has had an echocardiogram recently this year. Her lipid profile is normal. She has no diabetes. She will be monitored on telemetry unit. In terms of delirium , it was highly suspicious that perhaps the patient had an infection; however, her urinalysis is normal and her chest x-ray shows no acute abnormalities. She has no leukocytosis. I will add on a CRP to further evaluate and have a speech therapy evaluation. 2. Hypothyroidism. Continue levothyroxine. 3. Chronic bilateral lower extremity wounds. Plan to continue with the wound care consult today and the patient will have some Tylenol available at this point for pain. If her pain is more severe, we can add back on gabapentin and hydrocodone but I those given her altered mental status. Plan to continue furosemide. 4. Deep venous thrombosis prophylaxis with heparin subcu. 5. Disposition to telemetry floor. 6. Code status is DNR. TIME SPENT: Approximately 60 minutes were spent on the admission of this patient; more than half time spent with her and her daughter at the bedside reviewing the events leading up to this hospitalization, performing the physical examination, and reviewing the plan of care. RONIT MORALES NP ADDENDUM: Mrs. Sorensen is an 82-year-old female who presented to the hospital with altered mental status and mild flattening of left nasolabial fold. At this point, she is going to be admitted to the hospital with a diagnosis of possible CVA. For further details of the patient's presentation and plan, please see history and physical dictated by Ronit Morales NP on 02/02/17, with which I agree. TISHA LARSEN MD CC: Dr. Garvin* [id number]/CPS #: [id number] #: [id number] MARÍA
[2017-02-03] MEDS: Heparin VIAL(*) 5000 UNITS/ML VIAL (FIVE THOUSAND) SUBCUT SCH ×3 (05:09→21:48)
[2017-02-03] MEDS: Levothyroxine TAB* 125 MCG TAB PO SCH (05:09)
[2017-02-03] MEDS: Furosemide TAB* 20 MG PO SCH ×2 (08:20→08:24)
[2017-02-03] MEDS: Docusate CAP* 100 MG PO SCH (08:20)
[2017-02-03] MEDS: Ferrous Sulfate TAB* 325 MG PO SCH (08:20)
[2017-02-03] MEDS: Aspirin TAB* 325 MG PO SCH (08:20)
[2017-02-03] MEDS: Ascorbic Acid TAB* 500 MG PO SCH (08:20)
--- NOTE | 2017-02-03 09:19 | PN ---
Subjective Date of Service: 02/03/17 Interval History: Patient seen this morning with daughter at bedside. Patient seems to be somewhat improved this morning although not back to baseline as per daughter. She is able to tell me the month, year and day of the week although having trouble telling me where she is. Could not recall her own birthdate. Slow to respond to some questions. T of 100.6 yesterday but no clear evidence of infection. Family History: Unchanged from Admission Social History: Unchanged from Admission Past Medical History: Unchanged from Admission Objective Active Medications: Acetaminophen (Tylenol Tab*) 650 mg PO Q6H PRN Hydrocodone Bitart/Acetaminophen ([place] 5-325 Tab*) 1 tab PO Q4H PRN Ascorbic Acid (Vitamin C Tab*) 500 mg PO DAILY MILAN Aspirin (Aspirin Tab*) 325 mg PO DAILY MILAN Atorvastatin Calcium (Lipitor*) 20 mg PO 1700 MILAN Bisacodyl (Dulcolax Supp*) 10 mg IN DAILY PRN Docusate Sodium (Colace Cap*) 200 mg PO DAILY MILAN Ferrous Sulfate (Ferrous Sulfate Tab*) 325 mg PO DAILY MILAN Furosemide (Lasix Tab*) 20 mg PO DAILY MILAN Heparin Sodium (Porcine) (Heparin Vial(*)) 5,000 units SUBCUT Q8HR MILAN Levothyroxine Sodium (Synthroid Tab*) 125 mcg PO DAILY@0600 MILAN Tramadol HCl (Ultram*) 50 mg PO Q6H PRN Vital Signs 02/02/17 02/02/17 02/02/17 11:30 11:45 11:54 Temperature Pulse Rate 66 74 Respiratory Rate Blood Pressure 115/82 143/74 (mmHg) O2 Sat by Pulse 94 97 Oximetry 02/03/17 08:00 Temperature 99.5 F Pulse Rate 66 Respiratory 16 Rate Blood Pressure 148/74 (mmHg) O2 Sat by Pulse 100 Oximetry Oxygen Devices in Use Now: None Appearance: Elderly, F, sitting in chair in NAD Eyes: No Scleral Icterus Ears/Nose/Mouth/Throat: Mucous Membranes Moist Neck: NL Appearance and Movements; NL JVP Respiratory: Symmetrical Chest Expansion and Respiratory Effort, Clear to Auscultation Cardiovascular: NL Sounds; No Murmurs; No JVD, RRR Abdominal: NL Sounds; No Tenderness; No Distention Lymphatic: No Cervical Adenopathy Extremities: No Edema Skin: No Rash or Ulcers Neurological: - - Alert, oriented to self, time, thought she was in "[place]", mild L facial droop, strength intact and symmetric throughout Result Diagrams: 02/02/17 10:00 02/02/17 10:00 Microbiology and Other Data: Microbiology 02/02/17 15:50 Nasal Screen MRSA (PCR)(DONA) - Final Nasal Mrsa Negative Assess/Plan/Problems-Billing Assessment: Delirium over likely underlying dementia in an 82 yo F with hx of HTN, PAD, hypothyroidism, OA, chronic LE wounds - Patient Problems (1) Delirium Current Visit: Yes Comment: Appreciate Neuro assistance, no focal deficits, no acute changes on MRI. Not back to baseline. ?contribution from pain medications. Patient with low grade fever, unable to localize any infection. Will add on TSH and syphilis screen. Recent B12 WNL. Continue to monitor. Re- evaluate wounds. (2) Hypothyroidism Current Visit: No Comment: Continue current dose of synthroid. TSH pending. (3) Chronic wound of extremity Current Visit: Yes Comment: Wound care consult placed, patient was scheduled to get debridement today. Some LE edema, patient stopped Lasix recently, planned to consider restarting HCTZ, will start low dose. Hold hydrocodone, can have tramadol prn. (4) DVT prophylaxis Current Visit: No Comment: HSQ
[2017-02-03 09:28] LABS: TSH (Thyroid Stimulating Horm) 0.65 mcIU/mL (0.34-5.60)
[2017-02-03] MEDS: Hydrochlorothiazide TAB* 25 MG PO SCH (10:03)
[2017-02-03 11:29] LABS: Syphilis Index < 0.1 Index
[2017-02-03] MEDS: traMADol TAB* 50 MG PO PRN (13:07)
[2017-02-03] MEDS: Lidocaine 4% TOPICAL* 50 ML TOP.SOLN TOPICAL SCH (14:00)
[2017-02-03] MEDS ORDERED: HYDROcodone/ACETAMIN 5-325 MG* 1 TAB PO PRN (16:24)
[2017-02-03] MEDS: Atorvastatin* 20 MG TAB PO SCH (16:41)
[2017-02-03] MEDS: Acetaminophen TAB* 325 MG PO PRN (16:41)
[2017-02-04] MEDS: Acetaminophen TAB* 325 MG PO PRN ×2 (03:22→10:01)
[2017-02-04] MEDS: Levothyroxine TAB* 125 MCG TAB PO SCH (05:26)
[2017-02-04] MEDS: Heparin VIAL(*) 5000 UNITS/ML VIAL (FIVE THOUSAND) SUBCUT SCH (05:27)
[2017-02-04 07:45] VITALS: BP 154/75
--- NOTE | 2017-02-04 09:18 | DCNOTE ---
Patient seen this AM, daughter at bedside. Patient is alert and oriented, no complaints other than wanting to go home. Daughter feels she is better. On exam, RRR, s1 and s2 present, no m/g/r, abd soft, NTND, BS+, LE wrapped Delirium, ?caused by viral infection, meds. Symptoms resolved, work-up largely negative. Discharge back to [facility] today.
[2017-02-04] MEDS: Ferrous Sulfate TAB* 325 MG PO SCH (10:01)
[2017-02-04] MEDS: Furosemide TAB* 20 MG PO SCH ×2 (10:01→10:18)
[2017-02-04] MEDS: Docusate CAP* 100 MG PO SCH (10:01)
[2017-02-04] MEDS: Aspirin TAB* 325 MG PO SCH (10:01)
[2017-02-04] MEDS: Hydrochlorothiazide TAB* 25 MG PO SCH (10:02)
[2017-02-04] MEDS: Ascorbic Acid TAB* 500 MG PO SCH (10:02)
[2017-02-04] MEDS: Lidocaine 4% TOPICAL* 50 ML TOP.SOLN TOPICAL SCH (10:34)
--- NOTE | 2017-02-04 21:44 | DS ---
DISCHARGE SUMMARY: DATE OF ADMISSION: 02/02/17 DATE OF DISCHARGE: 02/04/17 PRIMARY CARE PHYSICIAN: Dr. Garvin. PRINCIPAL DISCHARGE DIAGNOSIS: Delirium. SECONDARY DIAGNOSES: 1. Osteoarthritis. 2. Peripheral arterial disease. 3. Hypertension. 4. Hypothyroidism. 5. Chronic bilateral lower extremity wounds with edema. DISCHARGE MEDICATION REGIMEN: 1. Synthroid 125 mcg by mouth daily. 2. [place] 10/325 one tablet by mouth every 6 hours as needed for pain. 3. Gabapentin 300 mg by mouth 2 times daily. 4. Dulcolax suppository 10 mg per rectum daily as needed for constipation. 5. Aspirin 81 mg by mouth daily. 6. Vitamin C 500 mg by mouth daily. 7. Ferrous sulfate 325 mg by mouth daily. 8. Docusate 200 mg by mouth daily. 9. Hydrochlorothiazide 12.5 mg by mouth daily. NEW MEDICATION STARTED AT THIS ADMISSION: Hydrochlorothiazide 12.5 mg by mouth daily. STUDIES DONE DURING HOSPITALIZATION: CT of the brain without contrast. Impression: No acute intracranial pathology. Diffuse involutional change with chronic small vessel ischemic changes. Chest x-ray. Impression: No evidence for acute findings. Right hip x-ray and pelvis. Impression: Limited study. Postsurgical changes and no evidence for acute fracture. If the patient's symptoms persist, recommend followup imaging. MRI of the brain without contrast. Impression: Atrophy and stigmata of chronic small vessel ischemic disease. No evidence. While the examination is limited, there is no gross evidence for acute or subacute ischemia. Negative for mass effect. CONSULTANTS DURING HOSPITALIZATION: Dr. Aldridge, Neurology. HISTORY OF PRESENT ILLNESS AND HOSPITAL SUMMARY: Please see the full history and physical by Ronit Morales NP, for full details. Briefly, Ms. Sorensen is an 82-year- old female with past medical history as above, who presented to the hospital with concern for weakness, confusion, and some word finding difficulties. This seemed to come on somewhat acutely and was a drastic change from the patient's baseline as per the family. The patient was evaluated in the emergency department. Labs were relatively unremarkable. There is no evidence of infection on urinalysis or chest x-ray. She underwent a neurology consult and it was felt that symptoms were more likely due to delirium. MRI of the brain was negative. The patient did have a low- grade fever the day of admission to 100.6. The following day, the patient's symptoms had improved somewhat, although still not back to baseline. TSH and a syphilis screen were added on to the patient's blood work. These were also negative. Her lower extremity wounds showed no evidence of infection. Subsequent day, the patient seemed to be back to her baseline. As per the patient and her daughter, it seems like the patient may have some underlying dementia and perhaps had some sort of a viral infection that may have exacerbated this and caused her delirium. The patient's daughter stated that she had been taken off Lasix as an outpatient, so this was stopped this hospitalization and there was consideration of her starting hydrochlorothiazide due to her lower extremity edema. Her blood pressure has tolerated this in the hospital and she will be sent home on a low dose of hydrochlorothiazide. The patient will need to follow up in the wound clinic as an outpatient as well as with her PCP, Dr. Garvin. TIME SPENT: Total time spent on this discharge, 45 minutes. This is a summary of the hospitalization, please see the full medical record for further details. CC: Dr. Garvin* [id number]/CPS #: [id number] MTDD
== END 2017-02-04 10:20 | disposition home or self-care (01) | DRG 880 ==
LOC: ED 08:37 → MEDTELE 11:28 → MED 02-03 15:16
PROVIDERS: ADMIT Internal Medicine; ATTEND Hospitalist
DX: F05 Delirium due to known physiological condition (principal); F03.90 Unspecified dementia, unspecified severity, without behavioral disturbance, psychotic disturbance, mood disturbance, and anxiety; L97.919 Non-pressure chronic ulcer of unspecified part of right lower leg with unspecified severity; L97.929 Non-pressure chronic ulcer of unspecified part of left lower leg with unspecified severity; M19.90 Unspecified osteoarthritis, unspecified site; I73.9 Peripheral vascular disease, unspecified; I10 Essential (primary) hypertension; E03.9 Hypothyroidism, unspecified; D53.9 Nutritional anemia, unspecified; W18.30XA Fall on same level, unspecified, initial encounter; Z96.641 Presence of right artificial hip joint; R47.02 Dysphasia; E78.5 Hyperlipidemia, unspecified; Z96.651 Presence of right artificial knee joint; Z66 Do not resuscitate; Y92.9 Unspecified place or not applicable; Z79.82 Long term (current) use of aspirin; Z79.899 Other long term (current) drug therapy; Z88.0 Allergy status to penicillin; Z80.3 Family history of malignant neoplasm of breast; Z87.891 Personal history of nicotine dependence
CPT/HCPCS: 36415; 70450; 70551; 71010; 80053; 80061; 80307; 81003; 81015; 83605; 84443; 84484; 85025; 85610; 86140; 86592; 86850; 86900; 86901; 87641; 93005; A9270-GY; J1644

== ENCOUNTER 2017-03-26 10:37 | Inpatient (IN) | payer MEDICARE ==
[2017-03-26] MEDS ORDERED: Levofloxacin 500 MG IVPREMIX(* 500 MG/100 ML BAG IVPB ONE (10:59)
[2017-03-26 11:51] LABS: Hematocrit 37 % (35-47); Hemoglobin 11.5 g/dl (12.0-16.0); Mean Corpuscular HGB Conc 31 g/dl (31-36); Mean Corpuscular Hemoglobin 24 pg (27-31); Mean Corpuscular Volume 77 fL (80-97); Mean Platelet Volume 8 um3 (7.4-10.4); Red Blood Count 4.83 10^6/ul (4.0-5.4); Red Cell Distribution Width 17 % (10.5-15); White Blood Count 14.7 10^3/ul (3.5-10.8)
[2017-03-26 11:53] LABS: Add Diff/Slide Review? Slide Review Added; Comments Flag Yes
[2017-03-26 12:06] LABS: BUN/Creatinine Ratio 24.6 (8-20); C Reactive Protein 237.53 mg/L (< 5.00); Calcium 9.1 mg/dL (8.6-10.3); EGFR African American 111.7 (>60); EGFR Non-African American 86.8 (>60); Globulin 3.3 g/dL (2-4); Total Bilirubin 0.7 mg/dL (0.2-1.0); Total Protein 6.3 g/dL (6.4-8.9)
[2017-03-26] MEDS: NS 0.9% 1000 ML* 1,000 ML IV SCH ×2 (12:10→16:45)
[2017-03-26 12:12] LABS: Potassium 2.7 mmol/L (3.5-5.0); TSH (Thyroid Stimulating Horm) 0.4 mcIU/mL (0.34-5.60); Troponin I 0.05 ng/mL (<0.04)
--- NOTE | 2017-03-26 12:31 | RAD ---
INDICATION: Injury, altered mental status. COMPARISON: There are no prior studies available for comparison. TECHNIQUE: Contiguous axial sections of the brain were obtained from the skull base to the vertex without contrast. FINDINGS: The ventricles, cisterns and sulci are enlarged consistent with diffuse atrophy. There are multiple focal areas of decreased density in the subcortical and periventricular white matter suggestive of moderate to severe chronic small vessel ischemic changes. There is no evidence for hemorrhage. No significant focal osseous abnormality is seen. The visualized portion of the paranasal sinuses and mastoid air cells appear clear. IMPRESSION: 1. NO EVIDENCE FOR ACUTE INTRACRANIAL ABNORMALITY. 2. ATROPHY AND MODERATE TO SEVERE CHRONIC SMALL VESSEL ISCHEMIC CHANGES.
[2017-03-26] MEDS ORDERED: Ondansetron INJ* 2 MG/ML VIAL IV PRN (12:33)
[2017-03-26] MEDS ORDERED: Potassium Chlor TAB* 20 MEQ TAB.ER PO ONE ×2 (12:33→21:00)
--- NOTE | 2017-03-26 12:37 | RAD ---
INDICATION: Fell 3 weeks ago. Altered mental status COMPARISON: CTA head and neck January 08, 2016 TECHNIQUE: Noncontrast axial source images was performed from the skull base to the thoracic inlet. Coronal and and sagittal reformatted images were generated. FINDINGS: Vertebrae: There is no fracture or acute focal bony lesion. Alignment: There is straightening of the mid cervical spine. There is a 2 mm anterolisthesis of C2 on C3 and a 3 mm anterolisthesis of C7 on T1, unchanged. This is likely on a degenerative basis. There is advanced narrowing of the disc spaces from C3 through T2 with endplate sclerosis, uncinate process spurring, and facet arthropathy. There is posterior spondylitic ridge formation mild multilevel decrease in AP diameter canal and multilevel foraminal narrowing appearing similar to prior imaging. Note that MR imaging is a more sensitive method to evaluate the canal and foramina. Intervertebral disc spaces: Advanced multilevel degenerative narrowing as outlined above. Brain: The visualized brain appears unremarkable. Soft tissues: The visualized soft tissue elements of the neck are unremarkable. The prevertebral soft tissues appear normal. The lung apices are clear. IMPRESSION: ADVANCED OSTEOARTHRITIC CHANGES WITH MULTILEVEL CANAL AND FORAMINAL NARROWING. NO ACUTE FINDINGS
[2017-03-26] MEDS ORDERED: Gabapentin CAP(*) 300 MG PO PRN (12:40)
[2017-03-26] MEDS ORDERED: Lidocaine 2% JELLY* 6 ML JELLY TOPICAL ONE (12:43)
[2017-03-26 12:45] LABS: Urine Bacteria Absent (Absent); Urine Bilirubin Negative (Negative); Urine Glucose Negative (Negative); Urine Nitrite Negative (Negative)
--- NOTE | 2017-03-26 12:57 | RAD ---
INDICATION: Fever COMPARISON: Chest x-ray February 02, 2017 TECHNIQUE: An AP portable view obtained at 1240 hours is submitted. FINDINGS: Bones/Soft Tissues: There are no acute bony findings. Cardiomediastinal: The cardiomediastinal silhouette is normal. Lungs: There are no infiltrates. Pleura: There are no pleural effusions. Other: None IMPRESSION: NO ACTIVE DISEASE.
[2017-03-26] MEDS: KCL 10 MEQ/50 ML IVPREMIX* 10 MEQ/50 ML BAG IV SCH ×3 (13:25→18:35)
--- NOTE | 2017-03-26 14:49 | ED ---
Deidre Hartley Salem, scribed for Homero Tillman MD on 03/26/17 at 1047 . HPI Febrile Illness - HPI Summary HPI Summary: Patient is a 82 y/o F who presents to the ED per EMS with a fever for the past 2 days. Per EMS, pts fever was at 99.1 at the custodial and 101.2 [employer]ATOR. Pt has unexplained ecchymosis to forehead, vomiting, confusion, and GI distress, but no diarrhea. EMS states that pt has been having trouble ambulating, standing , and sitting upright, per custodial. She is also having trouble following commands upon examination. Pt denies pain. Per EMS, pt is prone to infections and routinely has wounds to lower extremities. O2 sat at 89% on R.A. - History of Current Complaint Chief Complaint: EDFever Time Seen by Provider: 03/26/17 10:46 Hx Obtained From: Patient, EMS Onset/Duration: Started Days Ago, Still Present Timing: Constant Temperature: 99.1 F Initial Severity: Moderate Current Severity: Moderate Aggravating Factors: Nothing Alleviating Factors: Nothing Associated Signs and Symptoms: Other: - Confusion. - Additional Pertinent History Primary Care Physician: [id number] - Allergy/Home Medications Allergies/Adverse Reactions: Allergies Allergy/AdvReac Type Severity Reaction Status Date / Time Penicillins [PCN] Allergy Severe Anaphylatic Verified 02/02/17 09:10 Shock Home Medications: Home Medications Acetaminophen [Acetaminophen Extra Stren] 1,000 mg PO Q6HR PRN 03/26/17 [ History Confirmed 03/26/17] Gabapentin CAP(*) [Neurontin 300 CAP(*)] 300 mg PO BID PRN 03/26/17 [History Confirmed 03/26/17] Hydrochlorothiazide TAB* [Hydrodiuril TAB*] 12.5 mg PO DAILY 03/26/17 [History Confirmed 03/26/17] Hydrocortisone 1% CREAM(NF) 1 applic TOPICAL BID PRN 03/26/17 [History Confirmed 03/26/17] Lidocaine 4% TOPICAL* [Xylocaine Topical 4%*] 1 applic TOPICAL QAM 03/26/17 [ History Confirmed 03/26/17] Mirtazapine TAB* [Remeron TAB*] 22.5 mg PO BEDTIME 03/26/17 [History Confirmed 03/26/17] oxyCODONE TAB* [Roxycodone TAB 5 mg*] 5 mg PO Q6H PRN 03/26/17 [History Confirmed 03/26/17] PMH/Surg Hx/FS Hx/Imm Hx Endocrine/Hematology History: Reports: Hx Thyroid Disease - hypo Denies: Hx Diabetes Cardiovascular History: Reports: Hx Hypertension Denies: Hx Pacemaker/ICD Respiratory History: Denies: Hx Asthma, Hx Chronic Obstructive Pulmonary Disease (COPD) GI History: Denies: Hx Ulcer History: Denies: Hx Renal Disease Musculoskeletal History: Reports: Hx Arthritis Sensory History: Reports: Hx Contacts or Glasses Denies: Hx Hearing Aid Opthamlomology History: Reports: Hx Contacts or Glasses Neurological History: Reports: Hx Dementia Psychiatric History: Denies: Hx Panic Disorder - Cancer History Hx Chemotherapy: No Hx Radiation Therapy: No - Surgical History Surgery Procedure, Year, and Place: R knee surgery 2006. Multiple back surgeries. RT HIP AND RT KNEE REPLACEMENT. Appendectomy. T&A. 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 Positive: Vomiting. Negative: Diarrhea Positive: other - GI sx, per EMS. Positive: Other - Trouble ambulating, standing, and sitting upright. Positive: Other - Unexplained ecchymosis to forehead. Neurological: Other - Confusion. All Other Systems Reviewed And Are Negative: Yes Physical Exam Triage Information Reviewed: Yes Vital Signs On Initial Exam: Temp Pulse Resp BP SpO2 FiO2 102.6 F 82 20 140/82 89 03/26/17 11:35 03/26/17 11:35 03/26/17 11:35 03/26/17 11:35 03/26/17 11:35 Vital Signs Reviewed: Yes Appearance: Positive: Well-Appearing, No Pain Distress Skin: Positive: Warm, Skin Color Reflects Adequate Perfusion, Dry Head/Face: Positive: Other - Ecchymosis to forehead. Eyes: Positive: EOMI, LESLIE ENT: Positive: Other - DMM. Neck: Positive: Supple, Nontender Respiratory/Lung Sounds: Positive: Clear to Auscultation, Breath Sounds Present Cardiovascular: Positive: Other - Irregular rhythm. Abdomen Description: Positive: Nontender, Soft. Negative: Distended Bowel Sounds: Positive: Present Musculoskeletal: Positive: Other - Generalized weakness. Neurological: Positive: Sensory/Motor Intact, Alert, Oriented to Person Place, Time, Other - Mildly confused. No neurological deficit, but not following commands well. Psychiatric: Positive: Affect/Mood Appropriate - Eduar Coma Scale Best Eye Response: 4 - Spontaneous Best Motor Response: 6 - Obeys Commands Best Verbal Response: 4 - Confused - Mildly. Glascow Coma Scale Comments: Diagnostics - Vital Signs Vital Signs Temp Pulse Resp BP Pulse Ox 03/26/17 12:15 89 29 139/78 99 03/26/17 12:00 91 28 98 03/26/17 11:35 102.6 F 82 20 140/82 89 03/26/17 11:30 89 24 140/82 97 03/26/17 11:00 88 28 141/77 97 03/26/17 10:48 90 25 135/75 91 - Laboratory Lab Results: Lab Results 03/26/17 03/26/17 03/26/17 Range/Units 11:00 11:10 11:10 WBC 14.7 H (3.5-10.8) 10^3/ul RBC 4.83 (4.0-5.4) 10^6/ul Hgb 11.5 L (12.0-16.0) g/dl Hct 37 (35-47) % MCV 77 L (80-97) fL MCH 24 L (27-31) pg MCHC 31 (31-36) g/dl RDW 17 H (10.5-15) % Plt Count 118 L (150-450) 10^3/ul MPV 8 (7.4-10.4) um3 Neut % (Auto) 84.9 H (38-83) % Lymph % (Auto) 3.9 L (25-47) % [place] % (Auto) 10.8 H (1-9) % Eos % (Auto) 0 (0-6) % Baso % (Auto) 0.4 (0-2) % Absolute Neuts (auto) 12.5 H (1.5-7.7) 10^3/ul Absolute Lymphs (auto) 0.6 L (1.0-4.8) 10^3/ul Absolute Monos (auto) 1.6 H (0-0.8) 10^3/ul Absolute Eos (auto) 0 (0-0.6) 10^3/ul Absolute Basos (auto) 0.1 (0-0.2) 10^3/ul Absolute Nucleated RBC 0 10^3/ul Nucleated RBC % 0 INR (Anticoag Therapy) 1.17 H (0.89-1.11) APTT 31.5 (26.0-36.3) seconds Sodium (133-145) mmol/L Potassium (3.5-5.0) mmol/L Chloride (101-111) mmol/L Carbon Dioxide (22-32) mmol/L Anion Gap (2-11) mmol/L BUN (6-24) mg/dL Creatinine (0.51-0.95) mg/dL Est GFR ( Amer) (>60) Est GFR (Non-Af Amer) (>60) BUN/Creatinine Ratio (8-20) Glucose (70-100) mg/dL Lactic Acid (0.5-2.0) mmol/L Calcium (8.6-10.3) mg/dL Magnesium (1.9-2.7) mg/dL Total Bilirubin (0.2-1.0) mg/dL AST (13-39) U/L ALT (7-52) U/L Alkaline Phosphatase (34-104) U/L Total Creatine Kinase (10-223) U/L CK-MB (CK-2) (0.6-6.3) ng/mL Troponin I (<0.04) ng/mL C-Reactive Protein (< 5.00) mg/L B-Natriuretic Peptide ( - 100) pg/mL Total Protein (6.4-8.9) g/dL Albumin (3.2-5.2) g/dL Globulin (2-4) g/dL Albumin/Globulin Ratio (1-3) Lipase (11.0-82.0) U/L TSH (0.34-5.60) mcIU/mL Urine Color Yellow Urine Appearance Cloudy Urine pH 6.0 (5-9) Ur Specific [place] 1.013 (1.010-1.030) Urine Protein 2+(100 mg/dl) H (Negative) Urine Ketones Negative (Negative) Urine Blood 3+ H (Negative) Urine Nitrate Negative (Negative) Urine Bilirubin Negative (Negative) Urine Urobilinogen Negative (Negative) Ur Leukocyte Esterase 3+ H (Negative) Urine WBC (Auto) 3+(>20/hpf) H (Absent) Urine RBC (Auto) 3+(>10/hpf) H (Absent) Urine Bacteria Absent (Absent) Urine Glucose Negative (Negative) 03/26/17 03/26/17 03/26/17 Range/Units 11:10 11:10 11:10 WBC (3.5-10.8) 10^3/ul RBC (4.0-5.4) 10^6/ul Hgb (12.0-16.0) g/dl Hct (35-47) % MCV (80-97) fL MCH (27-31) pg MCHC (31-36) g/dl RDW (10.5-15) % Plt Count (150-450) 10^3/ul MPV (7.4-10.4) um3 Neut % (Auto) (38-83) % Lymph % (Auto) (25-47) % Valencia % (Auto) (1-9) % Eos % (Auto) (0-6) % Baso % (Auto) (0-2) % Absolute Neuts (auto) (1.5-7.7) 10^3/ul Absolute Lymphs (auto) (1.0-4.8) 10^3/ul Absolute Monos (auto) (0-0.8) 10^3/ul Absolute Eos (auto) (0-0.6) 10^3/ul Absolute Basos (auto) (0-0.2) 10^3/ul Absolute Nucleated RBC 10^3/ul Nucleated RBC % INR (Anticoag Therapy) (0.89-1.11) APTT (26.0-36.3) seconds Sodium 138 (133-145) mmol/L Potassium 2.7 L* (3.5-5.0) mmol/L Chloride 99 L (101-111) mmol/L Carbon Dioxide 31 (22-32) mmol/L Anion Gap 8 (2-11) mmol/L BUN 16 (6-24) mg/dL Creatinine 0.65 (0.51-0.95) mg/dL Est GFR ( Amer) 111.7 (>60) Est GFR (Non-Af Amer) 86.8 (>60) BUN/Creatinine Ratio 24.6 H (8-20) Glucose 113 H (70-100) mg/dL Lactic Acid 1.1 (0.5-2.0) mmol/L Calcium 9.1 (8.6-10.3) mg/dL Magnesium 2.0 (1.9-2.7) mg/dL Total Bilirubin 0.70 (0.2-1.0) mg/dL AST 10 L (13-39) U/L ALT 6 L (7-52) U/L Alkaline Phosphatase 91 (34-104) U/L Total Creatine Kinase 18 (10-223) U/L CK-MB (CK-2) 1.4 (0.6-6.3) ng/mL Troponin I 0.05 H* (<0.04) ng/mL C-Reactive Protein 237.53 H (< 5.00) mg/L B-Natriuretic Peptide 253 H ( - 100) pg/mL Total Protein 6.3 L (6.4-8.9) g/dL Albumin 3.0 L (3.2-5.2) g/dL Globulin 3.3 (2-4) g/dL Albumin/Globulin Ratio 0.9 L (1-3) Lipase 17 (11.0-82.0) U/L TSH 0.40 (0.34-5.60) mcIU/mL Urine Color Urine Appearance Urine pH (5-9) Ur Specific [place] (1.010-1.030) Urine Protein (Negative) Urine Ketones (Negative) Urine Blood (Negative) Urine Nitrate (Negative) Urine Bilirubin (Negative) Urine Urobilinogen (Negative) Ur Leukocyte Esterase (Negative) Urine WBC (Auto) (Absent) Urine RBC (Auto) (Absent) Urine Bacteria (Absent) Urine Glucose (Negative) Result Diagrams: 03/26/17 11:10 03/26/17 11:10 Diagnostic Studies Comment: Potassium: 2.7. Trop: 0.05. WBC: 14.7 Lab Statement: Any lab studies that have been ordered have been reviewed, and results considered in the medical decision making process. - Radiology CXR Radiology Interpretation Completed By: Radiologist - IMPRESSION: NO ACTIVE DISEASE. - CT BRAIN CT Interpretation Completed By: Radiologist - IMPRESSION: 1. NO EVIDENCE FOR ACUTE INTRACRANIAL ABNORMALITY. 2. ATROPHY AND MODERATE TO SEVERE CHRONIC SMALL VESSEL ISCHEMIC CHANGES. CERVICAL SPINE CT Interpretation Completed By: Radiologist - IMPRESSION: ADVANCED OSTEOARTHRITIC CHANGES WITH MULTILEVEL CANAL AND FORAMINAL NARROWING. NO ACUTE FINDINGS Course/Dx - Course Course Of Treatment: NO CRITICAL CARE TIME. ADMIT HOSPITALIST STABLE. - Diagnoses Provider Diagnoses: Weakness, UTI (urinary tract infection), Hypokalemia - Provider Notifications Discussed Care Of Patient With: Yris Segura Time Discussed With Above Provider: 10:53 Instructed by Provider To: Admit As Inpatient Admit/Transition Orders Completed By ED Provider: Yes Discharge - Discharge Plan Condition: Stable Disposition: ADMITTED TO [facility] The documentation as recorded by the Deidre hastings Salem accurately reflects the service I personally performed and the decisions made by , Homero Tillman MD.
[2017-03-26] MEDS: Heparin VIAL(*) 5000 UNITS/ML VIAL (FIVE THOUSAND) SUBCUT SCH ×2 (15:20→22:09)
[2017-03-26] MEDS: Acetaminophen TAB* 325 MG PO PRN (16:30)
[2017-03-26] MEDS ORDERED: KCL 10 MEQ/50 ML IVPREMIX* 10 MEQ/50 ML BAG ONE (18:33)
--- NOTE | 2017-03-26 19:09 | HP ---
CC: Dr. Garvin * HISTORY AND PHYSICAL: DATE OF ADMISSION: 03/26/17 PRIMARY CARE PROVIDER: Dr. Garvin. ATTENDING PHYSICIAN WHILE IN THE HOSPITAL: Yris Segura DO * (report dictated by Dru Mcclendon NP) CHIEF COMPLAINT: 1. Fever. 2. Not feeling well. HISTORY OF PRESENT ILLNESS: Ms. Sorensen is an 82-year-old female patient who resides at [facility]. She has a history of arthritis, lower extremity wounds , peripheral arterial disease, hypertension and hypothyroidism. She comes in to the ER today stating that the last few days, she is not feeling well. Her daughter states that she noted a fever on Thursday at [facility]. She was afebrile yesterday; however, today, she was noted to be febrile again. The patient does admit to having cough, bringing up some yellow sputum. She does admit to having some pain in her back last week, which was new for her according to the daughter. The fever today got as high as 102; [facility] staff was concerned, they sent her to the hospital. She denies any chest pain. Denies any shortness of breath. She denies any rhinorrhea or sore throat. She said she is not having any dysuria. She denies having any new skin ulcerations. She does have chronic wounds to the lower extremities. She denies any abdominal pain. She did have 1 episode of vomiting. There was concern because of the fever and the fact that she appeared to be drowsy and because of this, they sent her to the hospital. It was noted here that she appeared to be septic; source remains unclear at this point. Hospitalist service was asked to evaluate for admission. PAST MEDICAL HISTORY: Significant for: 1. Arthritis. 2. Lower extremity wounds. 3. Peripheral arterial disease. 4. Hypertension. 5. Hypothyroidism. PAST SURGICAL HISTORY: She has had a right total knee replacement and right total hip replacement. She has had back surgery. MEDICATIONS: Her home medications include, according to [facility] list: 1. Oxycodone 5 mg every 6 hours as needed. 2. Tylenol Extra Strength 1000 mg every 6 hours as needed. 3. Hydrocortisone 1 application topically b.i.d. as needed. 4. Gabapentin 300 mg p.o. b.i.d. as needed. 5. Vitamin C 500 mg p.o. daily. 6. Remeron 22.5 mg p.o. daily at bedtime. 7. Lidocaine 1 application topically q.a.m. 8. Levothyroxine 125 mcg p.o. daily. 9. Hydrochlorothiazide 12.5 mg daily. 10. Ferrous sulfate 325 mg p.o. daily. 11. Colace 200 mg p.o. daily. 12. Aspirin 81 mg daily. ALLERGIES: To medications include PENICILLIN. FAMILY HISTORY: Her mother had a history of breast cancer. Father of old age at the age of 96. SOCIAL HISTORY: She does not smoke. She does not drink. Surrogate decision maker is her daughter, Yelena. REVIEW OF SYSTEMS: There was a documented fever. She denied having any significant weight change. There was no ear discharge. There is no rhinorrhea. No sore throat. No thyroid enlargement. No chest pain. There is a cough. There is no shortness of breath. No orthopnea. No nocturnal dyspnea. There is no abdominal pain. There was episode of lower back pain last week. No dysuria. No frequency. No seizure. No loss of consciousness. No pruritus and no skin ulcerations. Review of 14 systems was completed, all others were negative. PHYSICAL EXAMINATION GENERAL: At this time, Mrs. Sorensen is an 82-year-old female patient. She appears to be chronically ill appearing. She does not appear to be in any acute distress. She is awake. She is alert to herself, time, and place. VITAL SIGNS: Blood pressure 133/79 with a pulse of 91, respirations were noted to be 28, O2 sat was 99%, temperature was 102.6. When I calculated respirations on exam, she is right around 24 and her O2 saturations were 99% on 2 L. HEENT: Head atraumatic. She does have an area of ecchymosis noted on her forehead. Eyes: Sclerae are anicteric, not pale. Throat: Oral mucosa appeared to be dry. No oropharyngeal erythema. NECK: Supple. LUNGS: She did have some crackles on the right side. She had equal diaphragmatic expansion. HEART: Sounds S1 and S2. Regular rate and rhythm. No murmurs, rubs, or gallops. ABDOMEN: Soft, flat, and nontender. Bowel sounds were present. EXTREMITIES: Pulses were 2+ throughout. They are diminished in the pedal pulses. She did have 5/5 strength. NEUROLOGIC: She is awake. She is alert. She does appear to be drowsy. She had no gross focal deficits. SKIN: Intact with the exception she has multiple wounds noted to the right lower extremity. The worst of these wounds are noted to the posterior portion of her lower extremity in the mid calf region that is measured about 3 x 3 cm. It does appear to have some discharge there, but there is no significant surrounding erythema to the wound. LABORATORY DATA/DIAGNOSTIC STUDIES: Labs today revealed a WBC of 14.7, RBC of 4.83, hemoglobin 11.5, hematocrit 37, and platelet count of 118,000. INR 1.17, PTT of 31.5. Sodium 138, potassium 2.7, chloride of 99, bicarb 31, BUN 16, creatinine 0.65, glucose 113. Lactate 1.1. Calcium 9.1. Total mag was 2.0. Total bili 0.7, AST 10, ALT 6, alk phos 91. CK 18, CK-MB 1.4. Troponin 0.05. CRP was 237. The lipase was 17. Urine showed 3+ blood, 3+ leukocyte esterase, 3+ wbc. She did have a cervical spine CT, which showed advanced osteoarthritic changes, multilevel canal and foraminal narrowing, no acute findings. Brain CT did show no evidence for acute intracranial abnormality, atrophy and moderate to severe chronic small vessel ischemic changes. There was a chest x- ray obtained today. EKG is pending. The chest x-ray, it does appear that she may have a mid lobe infiltrate, maybe a right lower lobe infiltrate. I am waiting for official radiology read. Old medical records were reviewed. ASSESSMENT AND PLAN: Mrs. Sorensen is an 82-year-old female patient coming into the ER today with complaints of fever, weakness and on evaluation, found to be septic. Source is unclear, but could be respiratory. She will be admitted under inpatient status for: 1. Sepsis. Again, she may have an underlying pneumonia. She has been coughing up some yellow sputum. She is now requiring oxygen as well. My plan is to go ahead and put her on Levaquin, renally dosed. I will go ahead and get Legionella and Strep pneumo antigens. Sputum culture had been sent. Blood cultures sent. Urinalysis and urine cultures sent as well. We will continue to hydrate her. Her lactate was normal. Place her on antibiotics and follow. 2. Indeterminate troponins, probably demand ischemia from the sepsis. We will trend these and if they do continue to elevate, we will get an echo. EKG is pending, I did order one. 3. Lower extremity wounds. I did place a wound care consult. I do not believe this is the source of her infection, but I did get a culture to be safe. 4. Peripheral artery disease. Continue with her aspirin. 5. Hypertension in the setting of sepsis. I will hold her blood pressure meds currently and we will restart them when she is more able to take them. 6. Hypothyroidism. Continue her Synthroid. 7. Hypokalemia, probably secondary to the hydrochlorothiazide. We will replace this and hydrate her and follow. 8. DVT prophylaxis. She will be placed on heparin subcu. 9. Code status. She is a DNR. There is a form in the chart. 10. Fluids, electrolytes, and nutrition: She can have a regular diet. TIME SPENT: Time spent on the admission 60 minutes, greater than half the time spent [id number] with the patient obtaining my history and physical, the other half of the time was spent going over the plan of care with the patient and implementing plan of care. I discussed plan of care with my attending, Dr. Segura, she is in agreement. DRU MCCLENDON NP [id number]/[facility] #: [id number] MARÍA
[2017-03-27] MEDS: Mirtazapine TAB* 15 MG PO SCH ×2 (00:28→20:51)
[2017-03-27] MEDS: NS 0.9% 1000 ML* 1,000 ML IV SCH ×2 (02:06→22:40)
[2017-03-27 05:23] LABS: Calcium 8.8 mg/dL (8.6-10.3); EGFR African American 132.6 (>60); EGFR Non-African American 103.1 (>60); Potassium 3.1 mmol/L (3.5-5.0)
[2017-03-27 05:24] LABS: Hematocrit 35 % (35-47); Hemoglobin 10.6 g/dl (12.0-16.0); Mean Corpuscular HGB Conc 31 g/dl (31-36); Mean Corpuscular Hemoglobin 24 pg (27-31); Mean Corpuscular Volume 78 fL (80-97); Mean Platelet Volume 8 um3 (7.4-10.4); Red Blood Count 4.45 10^6/ul (4.0-5.4); Red Cell Distribution Width 17 % (10.5-15); White Blood Count 9.3 10^3/ul (3.5-10.8)
[2017-03-27 05:25] LABS: Add Diff/Slide Review? Slide Review Added; Comments Flag Yes
[2017-03-27] MEDS: Levothyroxine TAB* 125 MCG TAB PO SCH (06:09)
[2017-03-27] MEDS: Heparin VIAL(*) 5000 UNITS/ML VIAL (FIVE THOUSAND) SUBCUT SCH ×3 (06:13→21:21)
[2017-03-27] MEDS: Docusate CAP* 100 MG PO SCH (08:30)
[2017-03-27] MEDS: Ferrous Sulfate TAB* 325 MG PO SCH (08:30)
[2017-03-27] MEDS: Aspirin Low Dose CHEW TAB* 81 MG PO SCH (08:30)
[2017-03-27] MEDS ORDERED: Potassium Chlor TAB* 20 MEQ TAB.ER PO ONE (09:00)
--- NOTE | 2017-03-27 10:19 | PN ---
Subjective Date of Service: 03/27/17 Interval History: Patient seen and examined at bedside. Ms. Sorensen does not offer any acute complaints, denying CP, SOB, abd pain, n/v, dysuria. She "just wants to go home. " Blood culture and urine culture findings shared with patient; she denies any previously known hx of UTI or renal stones. Patient has been adverse to taking PO potassium and appears withdrawn. Family History: Unchanged from Admission Social History: Unchanged from Admission Past Medical History: Unchanged from Admission Objective Active Medications: Acetaminophen (Tylenol Tab*) 650 mg PO Q4H PRN PRN Reason: FEVER/PAIN Last Admin: 03/26/17 16:30 Dose: 650 mg Aspirin (Aspirin Low Dose Tab*) 81 mg PO DAILY [facility] Last Admin: 03/27/17 08:30 Dose: Not Given Docusate Sodium (Colace Cap*) 200 mg PO DAILY [facility] Last Admin: 03/27/17 08:30 Dose: Not Given Ferrous Sulfate (Ferrous Sulfate Tab*) 325 mg PO DAILY [facility] Last Admin: 03/27/17 08:30 Dose: Not Given Gabapentin (Neurontin Cap(*)) 300 mg PO BID PRN PRN Reason: PAIN Heparin Sodium (Porcine) (Heparin Vial(*)) 5,000 units SUBCUT Q8HR [facility] Last Admin: 03/27/17 06:13 Dose: 5,000 units Sodium Chloride (Ns 0.9% 1000 Ml*) 1,000 mls @ 150 mls/hr IV PER RATE [facility] Last Admin: 03/26/17 12:10 Dose: 150 mls/hr Sodium Chloride (Ns 0.9% 1000 Ml*) 1,000 mls @ 100 mls/hr IV PER RATE [facility] Last Admin: 03/27/17 02:06 Dose: 100 mls/hr Levofloxacin/Dextrose (Levaquin 500 Mg Ivpremix(*)) 500 mg in 100 mls @ 100 mls /hr IVPB Q24H [facility] Levothyroxine Sodium (Synthroid Tab*) 125 mcg PO DAILY@0600 [facility] Last Admin: 03/27/17 06:09 Dose: 125 mcg Mirtazapine (Remeron Tab*) 22.5 mg PO BEDTIME [facility] Last Admin: 03/27/17 00:28 Dose: Not Given Ondansetron HCl (Zofran Inj*) 4 mg IV Q6H PRN PRN Reason: NAUSEA Potassium Chloride (Klor Con Er Tab*) 20 meq PO BID [facility] Vital Signs 03/26/17 03/26/17 03/26/17 12:30 13:00 14:20 Temperature 100.4 F Pulse Rate 86 90 Respiratory 28 29 18 Rate Blood Pressure 133/79 141/75 151/84 (mmHg) O2 Sat by Pulse 99 94 Oximetry 03/26/17 03/26/17 03/26/17 15:13 19:21 20:00 Temperature 101.5 F Pulse Rate 91 83 Respiratory 24 24 24 Rate Blood Pressure 139/76 116/73 (mmHg) O2 Sat by Pulse 93 94 Oximetry 03/26/17 03/26/17 03/26/17 20:26 21:29 23:20 Temperature 97.8 F 98.0 F Pulse Rate 64 Respiratory 24 Rate Blood Pressure 124/68 (mmHg) O2 Sat by Pulse 97 97 Oximetry 03/27/17 03/27/17 03/27/17 03:54 07:13 07:58 Temperature 98.5 F 98.0 F Pulse Rate 70 70 Respiratory 20 16 Rate Blood Pressure 159/80 155/79 (mmHg) O2 Sat by Pulse 96 94 97 Oximetry Oxygen Devices in Use Now: None Appearance: Elderly female, lying in bed, NAD Eyes: No Scleral Icterus Ears/Nose/Mouth/Throat: Mucous Membranes Moist Neck: NL Appearance and Movements; NL JVP Respiratory: Symmetrical Chest Expansion and Respiratory Effort, Clear to Auscultation Cardiovascular: NL Sounds; No Murmurs; No JVD, RRR Abdominal: NL Sounds; No Tenderness; No Distention Extremities: No Edema Skin: - - 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, did not unwrap, dressing change q48 hrs Neurological: Alert and Oriented x 3 Lines/Tubes/Other Access: Clean, Dry and Intact Peripheral IV Nutrition: Taking PO's Result Diagrams: 03/27/17 04:15 03/27/17 04:15 Additional Lab and Data: Lab Results 03/26/17 03/26/17 03/26/17 Range/Units 11:00 11:10 11:10 WBC 14.7 H (3.5-10.8) 10^3/ul RBC 4.83 (4.0-5.4) 10^6/ul Hgb 11.5 L (12.0-16.0) g/dl Hct 37 (35-47) % MCV 77 L (80-97) fL MCH 24 L (27-31) pg MCHC 31 (31-36) g/dl RDW 17 H (10.5-15) % Plt Count 118 L (150-450) 10^3/ul MPV 8 (7.4-10.4) um3 Neut % (Auto) 84.9 H (38-83) % Lymph % (Auto) 3.9 L (25-47) % [place] % (Auto) 10.8 H (1-9) % Eos % (Auto) 0 (0-6) % Baso % (Auto) 0.4 (0-2) % Absolute Neuts (auto) 12.5 H (1.5-7.7) 10^3/ul Absolute Lymphs (auto) 0.6 L (1.0-4.8) 10^3/ul Absolute Monos (auto) 1.6 H (0-0.8) 10^3/ul Absolute Eos (auto) 0 (0-0.6) 10^3/ul Absolute Basos (auto) 0.1 (0-0.2) 10^3/ul Absolute Nucleated RBC 0 10^3/ul Nucleated RBC % 0 INR (Anticoag Therapy) 1.17 H (0.89-1.11) APTT 31.5 (26.0-36.3) seconds Sodium (133-145) mmol/L Potassium (3.5-5.0) mmol/L Chloride (101-111) mmol/L Carbon Dioxide (22-32) mmol/L Anion Gap (2-11) mmol/L BUN (6-24) mg/dL Creatinine (0.51-0.95) mg/dL Est GFR ( Amer) (>60) Est GFR (Non-Af Amer) (>60) BUN/Creatinine Ratio (8-20) Glucose (70-100) mg/dL Lactic Acid (0.5-2.0) mmol/L Calcium (8.6-10.3) mg/dL Magnesium (1.9-2.7) mg/dL Total Bilirubin (0.2-1.0) mg/dL AST (13-39) U/L ALT (7-52) U/L Alkaline Phosphatase (34-104) U/L Total Creatine Kinase (10-223) U/L CK-MB (CK-2) (0.6-6.3) ng/mL Troponin I (<0.04) ng/mL C-Reactive Protein (< 5.00) mg/L B-Natriuretic Peptide ( - 100) pg/mL Total Protein (6.4-8.9) g/dL Albumin (3.2-5.2) g/dL Globulin (2-4) g/dL Albumin/Globulin Ratio (1-3) Lipase (11.0-82.0) U/L TSH (0.34-5.60) mcIU/mL Urine Color Yellow Urine Appearance Cloudy Urine pH 6.0 (5-9) Ur Specific [place] 1.013 (1.010-1.030) Urine Protein 2+(100 mg/dl) H (Negative) Urine Ketones Negative (Negative) Urine Blood 3+ H (Negative) Urine Nitrate Negative (Negative) Urine Bilirubin Negative (Negative) Urine Urobilinogen Negative (Negative) Ur Leukocyte Esterase 3+ H (Negative) Urine WBC (Auto) 3+(>20/hpf) H (Absent) Urine RBC (Auto) 3+(>10/hpf) H (Absent) Urine Bacteria Absent (Absent) Urine Glucose Negative (Negative) 03/26/17 03/26/17 03/26/17 Range/Units 11:10 11:10 11:10 WBC (3.5-10.8) 10^3/ul RBC (4.0-5.4) 10^6/ul Hgb (12.0-16.0) g/dl Hct (35-47) % MCV (80-97) fL MCH (27-31) pg MCHC (31-36) g/dl RDW (10.5-15) % Plt Count (150-450) 10^3/ul MPV (7.4-10.4) um3 Neut % (Auto) (38-83) % Lymph % (Auto) (25-47) % [place] % (Auto) (1-9) % Eos % (Auto) (0-6) % Baso % (Auto) (0-2) % Absolute Neuts (auto) (1.5-7.7) 10^3/ul Absolute Lymphs (auto) (1.0-4.8) 10^3/ul Absolute Monos (auto) (0-0.8) 10^3/ul Absolute Eos (auto) (0-0.6) 10^3/ul Absolute Basos (auto) (0-0.2) 10^3/ul Absolute Nucleated RBC 10^3/ul Nucleated RBC % INR (Anticoag Therapy) (0.89-1.11) APTT (26.0-36.3) seconds Sodium 138 (133-145) mmol/L Potassium 2.7 L* (3.5-5.0) mmol/L Chloride 99 L (101-111) mmol/L Carbon Dioxide 31 (22-32) mmol/L Anion Gap 8 (2-11) mmol/L BUN 16 (6-24) mg/dL Creatinine 0.65 (0.51-0.95) mg/dL Est GFR ( Amer) 111.7 (>60) Est GFR (Non-Af Amer) 86.8 (>60) BUN/Creatinine Ratio 24.6 H (8-20) Glucose 113 H (70-100) mg/dL Lactic Acid 1.1 (0.5-2.0) mmol/L Calcium 9.1 (8.6-10.3) mg/dL Magnesium 2.0 (1.9-2.7) mg/dL Total Bilirubin 0.70 (0.2-1.0) mg/dL AST 10 L (13-39) U/L ALT 6 L (7-52) U/L Alkaline Phosphatase 91 (34-104) U/L Total Creatine Kinase 18 (10-223) U/L CK-MB (CK-2) 1.4 (0.6-6.3) ng/mL Troponin I 0.05 H* (<0.04) ng/mL C-Reactive Protein 237.53 H (< 5.00) mg/L B-Natriuretic Peptide 253 H ( - 100) pg/mL Total Protein 6.3 L (6.4-8.9) g/dL Albumin 3.0 L (3.2-5.2) g/dL Globulin 3.3 (2-4) g/dL Albumin/Globulin Ratio 0.9 L (1-3) Lipase 17 (11.0-82.0) U/L TSH 0.40 (0.34-5.60) mcIU/mL Urine Color Urine Appearance Urine pH (5-9) Ur Specific [place] (1.010-1.030) Urine Protein (Negative) Urine Ketones (Negative) Urine Blood (Negative) Urine Nitrate (Negative) Urine Bilirubin (Negative) Urine Urobilinogen (Negative) Ur Leukocyte Esterase (Negative) Urine WBC (Auto) (Absent) Urine RBC (Auto) (Absent) Urine Bacteria (Absent) Urine Glucose (Negative) Microbiology and Other Data: Microbiology 03/26/17 18:15 Nasal Screen MRSA (PCR)(DONA) - Final Nasal Mrsa Negative 03/26/17 18:15 Legionella Urinary Antigen - Final Urine Negative Legionella Streptococcus pneumoniae Ag Screen - Final Negative S. pneumo Antigen 03/26/17 13:05 Skin and Soft Tissue MRSA/MSSA (PCR - Final Leg Right Mrsa Negative S.aureus Positive Gram Stain - Final Assess/Plan/Problems-Billing Assessment: Ms. Sorensen is an 82 yo female with a PMH of OA, chronic LE wounds, PAD, HTN, and hypothyroidism who presented to the ED on 03/26 with concern for fever and malaise and was found to have concern for sepsis. - Patient Problems (1) E coli bacteremia Code(s): R78.81 - BACTEREMIA Comment: Positive blood cx in 4/4 bottles for E. coli Suspected source is urinary Patient meets sepsis criteria on admission by SIRS with leukocytosis, fever, tachypnea, tachycardia. Patient meets sepsis criteria on admission by SOFA with a qSOFA score of 2 for tachypnea and transient altered mental status. ID consult (2) UTI (urinary tract infection) Comment: UA with leukocyte esterase Urine cx and blood cx growing E. coli Continue levofloxacin (pt with pcn allergy) Renal US to r/o obstruction (3) Hypokalemia Code(s): E87.6 - HYPOKALEMIA Comment: K+ 2.7 on admission Appears to be chronic Patient reluctant to take PO repletion, will give 1 bag of NS with 40 K Continue to follow (4) Chronic wound of extremity Code(s): OPL1619 - Comment: Appreciate wound care consult Dressing changes q48 hours as per wound care MSSA in right leg wound, does not appear acutely infected on admission (5) Peripheral arterial disease Code(s): I73.9 - PERIPHERAL VASCULAR DISEASE, UNSPECIFIED Comment: Continue ASA. (6) HTN (hypertension) Code(s): I10 - ESSENTIAL (PRIMARY) HYPERTENSION Comment: Normotensive HCTZ currently on hold (7) Hypothyroidism Code(s): E03.9 - HYPOTHYROIDISM, UNSPECIFIED Comment: TSH 0.4 Continue levothyroxine. (8) DVT prophylaxis Code(s): CHN0645 - Comment: SQ heparin Status and Disposition: Inpatient admit, LOS >2 days for sepsis and bacteremia.
[2017-03-27] MEDS ORDERED: NS 0.9% w/ 40 Meq KCL 1000 ML* 1,000 ML IV SCH (11:00)
[2017-03-27] MEDS ORDERED: Levofloxacin 500 MG IVPREMIX(* 500 MG/100 ML BAG IVPB SCH (12:00)
--- NOTE | 2017-03-27 15:23 | RAD ---
INDICATION: Renal obstruction, stones. COMPARISON: Comparison is made with a prior CT angiogram of the abdomen and pelvis from October 23, 2016. TECHNIQUE: Multiple real-time images of the kidneys and urinary bladder were obtained. FINDINGS: The kidneys are normal in size shape and echogenicity. The right kidney measured 9.4 x 3.8 x 4.1 cm and the left kidney measured 11.1 x 4.7 x 3.3 cm. There is a simple cyst in the upper and midportion of the right kidney measuring 1.3 x 1.5 x 1.5 cm. No hydronephrosis was seen. The bladder was nearly empty, no ureteral jets were visualized. The bladder volume during the exam was 17 mL. IMPRESSION: 1. SMALL RIGHT RENAL CYST, NO EVIDENCE FOR HYDRONEPHROSIS. 2. LIMITED EVALUATION OF THE BLADDER.
[2017-03-27] MEDS ORDERED: Potassium Chlor TAB* 20 MEQ TAB.ER PO SCH (21:00)
--- NOTE | 2017-03-28 05:39 | CONS ---
CONSULTATION REPORT: DATE OF CONSULT: 03/27/17 REQUESTING PROVIDER: Ambika Renee NP. CONSULTING SERVICE: Infectious Disease. REASON FOR CONSULT: E. coli bacteremia. IMPRESSION: 1. E. coli cystitis with bacteremia. Ultrasound of the abdomen showed no hydronephrosis or uretera l stones. 2. History of lower extremity wounds with Staphylococcus aureus growing from the left leg, MSSA. 3. PENICILLIN allergy caused unknown reaction, long time ago. 4. 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 RECOMMENDATIONS: 1. We will change her Levaquin to ceftriaxone and await her blood cultures and sensitivity data, re check blood cultures tomorrow. Assuming she defervesced a bit, I will change her over to oral antib iotic therapy. 2. She declined evaluation of her wounds today and so when I see her again, we will re-examine her lower extremity wounds to further evaluate them. HISTORY OF PRESENT ILLNESS: This is an 82-year-old woman admitted with fever, malaise, and chills. She is brought to the ER from [place] on . Her white count was 14,000. She was started on L evaquin. A wound on the left leg with cultures growing Staph aureus, PCR negative for MRSA. Blood cultures were taken, 4/4 growing E. coli. The urine culture is growing E. coli as well; 100,000 col onies. Her urinalysis showed blood, leukocyte esterase. She denies any dysuria or urinary frequency. She has not had urinary tract infections in the past. [facility] her lower extremity wounds, which are dressed now, and s he declines me removing the dressings. She wants to go home tonight. PAST MEDICAL HISTORY: 1. Osteoarthritis. 2. 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 3. Peripheral vascular disease. 4. Hypertension. 5. Hyperthyroidism. MEDICATIONS: 1. Aspirin. 2. Ferrous sulfate. 3. Gabapentin. 4. Heparin subcutaneous injection. 5. Levothyroxine. 6. Levaquin 500 mg IV daily. ALLERGIES: PENICILLIN causes unknown reaction. FAMILY HISTORY: Mother with breast cancer. SOCIAL HISTORY: She lives at [place]. She has no travel or sick contacts. REVIEW OF SYSTEMS: All negative to full review of systems except as noted above. PHYSICAL EXAM: Vital Signs: Temperature is 37, heart rate 90, respiratory rate 16, blood pressure 130/75, and O2 sat 94% on room air. General: She is awake, not in distress. Neurologic: She is o riented x2. Follows commands. Answers questions. HEENT: There is no conjunctival hemorrhage. Or opharynx without lesions. Heart: Regular rate and rhythm without murmurs, rubs, or gallops. Lungs: Clear to auscultation bilaterally. Abdomen: Soft, nontender, and nondistended. There is no flan k tenderness to palpation. Skin: There is no rash or splinter hemorrhages. Musculoskeletal: Ther e is no spine tenderness to palpation or joint synovitis. The lower extremities are both wrapped. LABORATORY DATA: White blood cell count 9, hemoglobin 10, platelets 95. Creatinine is 0.5. Troponi n 0.04. Please see impressions and recommendations outlined above, which I have discussed with Ambika Cook on, RN IMCU. Thank you for asking me to see Ms. Sorensen in consultation. [id number]/CPS #: [id number]
[2017-03-28] MEDS: Heparin VIAL(*) 5000 UNITS/ML VIAL (FIVE THOUSAND) SUBCUT SCH ×3 (05:53→22:07)
[2017-03-28] MEDS: Levothyroxine TAB* 125 MCG TAB PO SCH (06:06)
[2017-03-28] MEDS: NS 0.9% 1000 ML* 1,000 ML IV SCH ×2 (06:07→22:08)
[2017-03-28] MEDS ORDERED: Potassium Chlor TAB* 20 MEQ TAB.ER PO ONE ×2 (07:39→17:21)
[2017-03-28] MEDS: Docusate CAP* 100 MG PO SCH (08:17)
[2017-03-28] MEDS: Ferrous Sulfate TAB* 325 MG PO SCH (08:18)
[2017-03-28] MEDS: Aspirin Low Dose CHEW TAB* 81 MG PO SCH (08:18)
[2017-03-28] MEDS: KCL 20 MEQ/100 ML IVPREMIX* 20 MEQ/100 ML BAG IV SCH ×2 (10:14→16:26)
[2017-03-28 10:50] LABS: BUN/Creatinine Ratio 18.5 (8-20); Calcium 8.2 mg/dL (8.6-10.3); EGFR African American 138.3 (>60); EGFR Non-African American 107.6 (>60); Potassium 3.5 mmol/L (3.5-5.0)
[2017-03-28] MEDS: cefTRIAXone VIAL(*) 1,000 MG in NS 0.9% 50 ML* 50 ML IVPB SCH (12:54)
--- NOTE | 2017-03-28 13:20 | PN ---
Subjective Date of Service: 03/28/17 Interval History: pt had been refusing blood draws. feels well, no new complaints. Family History: Unchanged from Admission Social History: Unchanged from Admission Past Medical History: Unchanged from Admission Objective Active Medications: Acetaminophen (Tylenol Tab*) 650 mg PO Q4H PRN PRN Reason: FEVER/PAIN Last Admin: 03/26/17 16:30 Dose: 650 mg Aspirin (Aspirin Low Dose Tab*) 81 mg PO DAILY [facility] Last Admin: 03/28/17 08:18 Dose: 81 mg Docusate Sodium (Colace Cap*) 200 mg PO DAILY [facility] Last Admin: 03/28/17 08:17 Dose: 200 mg Ferrous Sulfate (Ferrous Sulfate Tab*) 325 mg PO DAILY [facility] Last Admin: 03/28/17 08:18 Dose: 325 mg Gabapentin (Neurontin Cap(*)) 300 mg PO BID PRN PRN Reason: PAIN Heparin Sodium (Porcine) (Heparin Vial(*)) 5,000 units SUBCUT Q8HR [facility] Last Admin: 03/28/17 05:53 Dose: 5,000 units Sodium Chloride (Ns 0.9% 1000 Ml*) 1,000 mls @ 150 mls/hr IV PER RATE [facility] Last Admin: 03/28/17 06:07 Dose: 150 mls/hr Sodium Chloride (Ns 0.9% 1000 Ml*) 1,000 mls @ 100 mls/hr IV PER RATE [facility] Stop: 03/28/17 15:00 Last Admin: 03/27/17 02:06 Dose: 100 mls/hr Ceftriaxone Sodium 1,000 mg/ (Sodium Chloride) 50 mls @ 200 mls/hr IVPB Q24H [facility] Last Admin: 03/28/17 12:54 Dose: 200 mls/hr Potassium Chloride (Potassium Chloride 20 Meq/100 Ml Ivpremix*) 20 meq in 100 mls @ 50 mls/hr IV Q2H [facility] Stop: 03/28/17 13:59 Last Admin: 03/28/17 10:14 Dose: 50 mls/hr Levothyroxine Sodium (Synthroid Tab*) 125 mcg PO DAILY@0600 [facility] Last Admin: 03/28/17 06:06 Dose: 125 mcg Mirtazapine (Remeron Tab*) 22.5 mg PO BEDTIME [facility] Last Admin: 03/27/17 20:51 Dose: 22.5 mg Ondansetron HCl (Zofran Inj*) 4 mg IV Q6H PRN PRN Reason: NAUSEA Vital Signs 03/27/17 03/27/17 03/27/17 15:25 19:25 20:00 Temperature 98.0 F 98.6 F Pulse Rate 100 76 Respiratory 28 17 17 Rate Blood Pressure 137/66 127/71 (mmHg) O2 Sat by Pulse 93 94 Oximetry 03/27/17 03/28/17 03/28/17 22:40 00:44 01:10 Temperature 98.5 F Pulse Rate 82 85 Respiratory 20 Rate Blood Pressure 168/90 161/86 (mmHg) O2 Sat by Pulse 94 92 Oximetry 03/28/17 03/28/17 03/28/17 03:29 07:24 08:00 Temperature 97.6 F 99.2 F Pulse Rate 80 74 Respiratory 20 16 16 Rate Blood Pressure 139/81 163/79 (mmHg) O2 Sat by Pulse 92 91 Oximetry 03/28/17 11:33 Temperature 100.3 F Pulse Rate 72 Respiratory 16 Rate Blood Pressure 135/75 (mmHg) O2 Sat by Pulse 94 Oximetry Oxygen Devices in Use Now: None Appearance: 82 yo f in nAd, aAOx3 Eyes: No Scleral Icterus, PERRLA Ears/Nose/Mouth/Throat: NL Teeth, Lips, Gums, Mucous Membranes Moist Neck: NL Appearance and Movements; NL JVP, Trachea Midline Respiratory: Symmetrical Chest Expansion and Respiratory Effort, Clear to Auscultation Cardiovascular: NL Sounds; No Murmurs; No JVD, RRR Abdominal: NL Sounds; No Tenderness; No Distention Lymphatic: No Cervical Adenopathy Extremities: No Clubbing, Cyanosis Skin: No Nodules or Sclerosis, - - LE's wounds not evaluated, pt wished no to have dressings removed prior to scheduled change, toes well perfused with no cyanosis or clubbing Neurological: Alert and Oriented x 3, NL Muscle Strength and Tone Result Diagrams: 03/27/17 04:15 03/28/17 10:20 Additional Lab and Data: Lab Results 03/26/17 03/26/17 03/26/17 Range/Units 11:00 11:10 11:10 WBC 14.7 H (3.5-10.8) 10^3/ul RBC 4.83 (4.0-5.4) 10^6/ul Hgb 11.5 L (12.0-16.0) g/dl Hct 37 (35-47) % MCV 77 L (80-97) fL MCH 24 L (27-31) pg MCHC 31 (31-36) g/dl RDW 17 H (10.5-15) % Plt Count 118 L (150-450) 10^3/ul MPV 8 (7.4-10.4) um3 Neut % (Auto) 84.9 H (38-83) % Lymph % (Auto) 3.9 L (25-47) % [place] % (Auto) 10.8 H (1-9) % Eos % (Auto) 0 (0-6) % Baso % (Auto) 0.4 (0-2) % Absolute Neuts (auto) 12.5 H (1.5-7.7) 10^3/ul Absolute Lymphs (auto) 0.6 L (1.0-4.8) 10^3/ul Absolute Monos (auto) 1.6 H (0-0.8) 10^3/ul Absolute Eos (auto) 0 (0-0.6) 10^3/ul Absolute Basos (auto) 0.1 (0-0.2) 10^3/ul Absolute Nucleated RBC 0 10^3/ul Nucleated RBC % 0 INR (Anticoag Therapy) 1.17 H (0.89-1.11) APTT 31.5 (26.0-36.3) seconds Sodium (133-145) mmol/L Potassium (3.5-5.0) mmol/L Chloride (101-111) mmol/L Carbon Dioxide (22-32) mmol/L Anion Gap (2-11) mmol/L BUN (6-24) mg/dL Creatinine (0.51-0.95) mg/dL Est GFR ( Amer) (>60) Est GFR (Non-Af Amer) (>60) BUN/Creatinine Ratio (8-20) Glucose (70-100) mg/dL Lactic Acid (0.5-2.0) mmol/L Calcium (8.6-10.3) mg/dL Magnesium (1.9-2.7) mg/dL Total Bilirubin (0.2-1.0) mg/dL AST (13-39) U/L ALT (7-52) U/L Alkaline Phosphatase (34-104) U/L Total Creatine Kinase (10-223) U/L CK-MB (CK-2) (0.6-6.3) ng/mL Troponin I (<0.04) ng/mL C-Reactive Protein (< 5.00) mg/L B-Natriuretic Peptide ( - 100) pg/mL Total Protein (6.4-8.9) g/dL Albumin (3.2-5.2) g/dL Globulin (2-4) g/dL Albumin/Globulin Ratio (1-3) Lipase (11.0-82.0) U/L TSH (0.34-5.60) mcIU/mL Urine Color Yellow Urine Appearance Cloudy Urine pH 6.0 (5-9) Ur Specific [place] 1.013 (1.010-1.030) Urine Protein 2+(100 mg/dl) H (Negative) Urine Ketones Negative (Negative) Urine Blood 3+ H (Negative) Urine Nitrate Negative (Negative) Urine Bilirubin Negative (Negative) Urine Urobilinogen Negative (Negative) Ur Leukocyte Esterase 3+ H (Negative) Urine WBC (Auto) 3+(>20/hpf) H (Absent) Urine RBC (Auto) 3+(>10/hpf) H (Absent) Urine Bacteria Absent (Absent) Urine Glucose Negative (Negative) 03/26/17 03/26/17 03/26/17 Range/Units 11:10 11:10 11:10 WBC (3.5-10.8) 10^3/ul RBC (4.0-5.4) 10^6/ul Hgb (12.0-16.0) g/dl Hct (35-47) % MCV (80-97) fL MCH (27-31) pg MCHC (31-36) g/dl RDW (10.5-15) % Plt Count (150-450) 10^3/ul MPV (7.4-10.4) um3 Neut % (Auto) (38-83) % Lymph % (Auto) (25-47) % [place] % (Auto) (1-9) % Eos % (Auto) (0-6) % Baso % (Auto) (0-2) % Absolute Neuts (auto) (1.5-7.7) 10^3/ul Absolute Lymphs (auto) (1.0-4.8) 10^3/ul Absolute Monos (auto) (0-0.8) 10^3/ul Absolute Eos (auto) (0-0.6) 10^3/ul Absolute Basos (auto) (0-0.2) 10^3/ul Absolute Nucleated RBC 10^3/ul Nucleated RBC % INR (Anticoag Therapy) (0.89-1.11) APTT (26.0-36.3) seconds Sodium 138 (133-145) mmol/L Potassium 2.7 L* (3.5-5.0) mmol/L Chloride 99 L (101-111) mmol/L Carbon Dioxide 31 (22-32) mmol/L Anion Gap 8 (2-11) mmol/L BUN 16 (6-24) mg/dL Creatinine 0.65 (0.51-0.95) mg/dL Est GFR ( Amer) 111.7 (>60) Est GFR (Non-Af Amer) 86.8 (>60) BUN/Creatinine Ratio 24.6 H (8-20) Glucose 113 H (70-100) mg/dL Lactic Acid 1.1 (0.5-2.0) mmol/L Calcium 9.1 (8.6-10.3) mg/dL Magnesium 2.0 (1.9-2.7) mg/dL Total Bilirubin 0.70 (0.2-1.0) mg/dL AST 10 L (13-39) U/L ALT 6 L (7-52) U/L Alkaline Phosphatase 91 (34-104) U/L Total Creatine Kinase 18 (10-223) U/L CK-MB (CK-2) 1.4 (0.6-6.3) ng/mL Troponin I 0.05 H* (<0.04) ng/mL C-Reactive Protein 237.53 H (< 5.00) mg/L B-Natriuretic Peptide 253 H ( - 100) pg/mL Total Protein 6.3 L (6.4-8.9) g/dL Albumin 3.0 L (3.2-5.2) g/dL Globulin 3.3 (2-4) g/dL Albumin/Globulin Ratio 0.9 L (1-3) Lipase 17 (11.0-82.0) U/L TSH 0.40 (0.34-5.60) mcIU/mL Urine Color Urine Appearance Urine pH (5-9) Ur Specific [place] (1.010-1.030) Urine Protein (Negative) Urine Ketones (Negative) Urine Blood (Negative) Urine Nitrate (Negative) Urine Bilirubin (Negative) Urine Urobilinogen (Negative) Ur Leukocyte Esterase (Negative) Urine WBC (Auto) (Absent) Urine RBC (Auto) (Absent) Urine Bacteria (Absent) Urine Glucose (Negative) Microbiology and Other Data: Microbiology 03/26/17 18:15 Nasal Screen MRSA (PCR)(DONA) - Final Nasal Mrsa Negative 03/26/17 18:15 Legionella Urinary Antigen - Final Urine Negative Legionella Streptococcus pneumoniae Ag Screen - Final Negative S. pneumo Antigen 03/26/17 13:05 Skin and Soft Tissue MRSA/MSSA (PCR - Final Leg Right Mrsa Negative S.aureus Positive Gram Stain - Final Assess/Plan/Problems-Billing Assessment: Ms. Sorensen is an 82 yo female with a PMH of OA, chronic LE wounds, PAD, HTN, and hypothyroidism who presented to the ED on 03/26 with concern for fever and malaise and was found to have concern for sepsis. - Patient Problems (1) E coli bacteremia Comment: Positive blood cx in 4/4 bottles for E. coli. Pt refuses further blood draws for repeat blood cx. She had been a "difficult stick". Suspected source is urinary Patient was septic on admission by SIRS with leukocytosis, fever, tachypnea, tachycardia. Patient meets sepsis criteria on admission by SOFA with a qSOFA score of 2 for tachypnea and transient altered mental status. ID consult appreciated. Plan to tx with IV antibiotics x 24H, d/c Thursday on PO (2) UTI (urinary tract infection) Comment: Urine cx and blood cx growing E. coli Continue Ceftriaxone Renal US to r/o obstruction (3) Hypokalemia Comment: repleting IV (4) Chronic wound of extremity Comment: Appreciate wound care consult Dressing changes q48 hours as per wound care MSSA in right leg wound, does not appear acutely infected on admission (5) Peripheral arterial disease Comment: Continue ASA. (6) HTN (hypertension) Comment: Normotensive HCTZ currently on hold (7) Hypothyroidism Comment: TSH 0.4 Continue levothyroxine. (8) DVT prophylaxis Comment: SQ heparin Status and Disposition: Inpatient admit,plan to d/c Thursday to [facility], PT eval requested to eval for safe return
[2017-03-28] MEDS ORDERED: KCL 20 MEQ/100 ML IVPREMIX* 20 MEQ/100 ML BAG ONE (16:24)
[2017-03-28] MEDS: Magnesium Oxide TAB* 400 MG PO SCH (17:53)
[2017-03-28] MEDS: Mirtazapine TAB* 15 MG PO SCH (22:07)
[2017-03-28] MEDS: Acetaminophen TAB* 325 MG PO PRN (23:56)
[2017-03-29] MEDS: Heparin VIAL(*) 5000 UNITS/ML VIAL (FIVE THOUSAND) SUBCUT SCH ×3 (07:15→21:17)
[2017-03-29] MEDS: Levothyroxine TAB* 125 MCG TAB PO SCH (07:15)
[2017-03-29] MEDS ORDERED: QUEtiapine TAB* 25 MG PO ONE ×2 (08:14→14:15)
[2017-03-29 08:28] LABS: Hematocrit 31 % (35-47); Hemoglobin 9.9 g/dl (12.0-16.0); Mean Corpuscular HGB Conc 32 g/dl (31-36); Mean Corpuscular Hemoglobin 24 pg (27-31); Mean Corpuscular Volume 76 fL (80-97); Mean Platelet Volume 8 um3 (7.4-10.4); Red Blood Count 4.13 10^6/ul (4.0-5.4); Red Cell Distribution Width 17 % (10.5-15); White Blood Count 7.9 10^3/ul (3.5-10.8)
--- NOTE | 2017-03-29 08:39 | PN ---
Subjective Date of Service: 03/29/17 Interval History: Pt was found acutely delirious this AM. Picking at things, disoriented, asking her daughter to take her home. Family History: Unchanged from Admission Social History: Unchanged from Admission Past Medical History: Unchanged from Admission Objective Active Medications: Acetaminophen (Tylenol Tab*) 650 mg PO Q4H PRN PRN Reason: FEVER/PAIN Last Admin: 03/28/17 23:56 Dose: 650 mg Aspirin (Aspirin Low Dose Tab*) 81 mg PO DAILY [facility] Last Admin: 03/28/17 08:18 Dose: 81 mg Docusate Sodium (Colace Cap*) 200 mg PO DAILY [facility] Last Admin: 03/28/17 08:17 Dose: 200 mg Ferrous Sulfate (Ferrous Sulfate Tab*) 325 mg PO DAILY [facility] Last Admin: 03/28/17 08:18 Dose: 325 mg Gabapentin (Neurontin Cap(*)) 300 mg PO BID PRN PRN Reason: PAIN Heparin Sodium (Porcine) (Heparin Vial(*)) 5,000 units SUBCUT Q8HR [facility] Last Admin: 03/29/17 07:15 Dose: 5,000 units Ceftriaxone Sodium 1,000 mg/ (Sodium Chloride) 50 mls @ 200 mls/hr IVPB Q24H [facility] Last Admin: 03/28/17 12:54 Dose: 200 mls/hr Levothyroxine Sodium (Synthroid Tab*) 125 mcg PO DAILY@0600 [facility] Last Admin: 03/29/17 07:15 Dose: 125 mcg Magnesium Oxide (Magox 400 Tab*) 800 mg PO DAILY [facility] Last Admin: 03/28/17 17:53 Dose: 800 mg Mirtazapine (Remeron Tab*) 22.5 mg PO BEDTIME [facility] Last Admin: 03/28/17 22:07 Dose: Not Given Ondansetron HCl (Zofran Inj*) 4 mg IV Q6H PRN PRN Reason: NAUSEA Vital Signs 03/28/17 03/28/17 03/28/17 11:33 15:37 20:00 Temperature 100.3 F 98.5 F Pulse Rate 72 90 Respiratory 16 16 16 Rate Blood Pressure 135/75 142/86 (mmHg) O2 Sat by Pulse 94 95 Oximetry 03/28/17 03/28/17 03/29/17 20:03 23:57 03:27 Temperature 100.5 F 101 F Pulse Rate 81 80 Respiratory 16 18 Rate Blood Pressure 151/86 146/83 (mmHg) O2 Sat by Pulse 96 96 Oximetry 03/29/17 03/29/17 07:52 08:33 Temperature 98.2 F Pulse Rate 58 Respiratory 16 Rate Blood Pressure 151/82 (mmHg) O2 Sat by Pulse 97 96 Oximetry Oxygen Devices in Use Now: None Appearance: 82 yo F in NAD, hyperactive, picking at things, disoriented to time and place, recognizes daughter in the room Eyes: No Scleral Icterus, PERRLA Ears/Nose/Mouth/Throat: NL Teeth, Lips, Gums, Mucous Membranes Moist Neck: NL Appearance and Movements; NL JVP, Trachea Midline Respiratory: Symmetrical Chest Expansion and Respiratory Effort, Clear to Auscultation Cardiovascular: NL Sounds; No Murmurs; No JVD, RRR Abdominal: NL Sounds; No Tenderness; No Distention Lymphatic: No Cervical Adenopathy Extremities: No Edema, No Clubbing, Cyanosis Skin: No Nodules or Sclerosis, - - eschar in L pretibial area-healing, R LE several ulcers on anterior and posterior aspect-approx 5 total 2-3 cm in size , covered with eschar, no evidence of cellulitis Neurological: NL Muscle Strength and Tone Result Diagrams: 03/29/17 07:47 03/28/17 10:20 Additional Lab and Data: Lab Results 03/26/17 03/26/17 03/26/17 Range/Units 11:00 11:10 11:10 WBC 14.7 H (3.5-10.8) 10^3/ul RBC 4.83 (4.0-5.4) 10^6/ul Hgb 11.5 L (12.0-16.0) g/dl Hct 37 (35-47) % MCV 77 L (80-97) fL MCH 24 L (27-31) pg MCHC 31 (31-36) g/dl RDW 17 H (10.5-15) % Plt Count 118 L (150-450) 10^3/ul MPV 8 (7.4-10.4) um3 Neut % (Auto) 84.9 H (38-83) % Lymph % (Auto) 3.9 L (25-47) % [place] % (Auto) 10.8 H (1-9) % Eos % (Auto) 0 (0-6) % Baso % (Auto) 0.4 (0-2) % Absolute Neuts (auto) 12.5 H (1.5-7.7) 10^3/ul Absolute Lymphs (auto) 0.6 L (1.0-4.8) 10^3/ul Absolute Monos (auto) 1.6 H (0-0.8) 10^3/ul Absolute Eos (auto) 0 (0-0.6) 10^3/ul Absolute Basos (auto) 0.1 (0-0.2) 10^3/ul Absolute Nucleated RBC 0 10^3/ul Nucleated RBC % 0 INR (Anticoag Therapy) 1.17 H (0.89-1.11) APTT 31.5 (26.0-36.3) seconds Sodium (133-145) mmol/L Potassium (3.5-5.0) mmol/L Chloride (101-111) mmol/L Carbon Dioxide (22-32) mmol/L Anion Gap (2-11) mmol/L BUN (6-24) mg/dL Creatinine (0.51-0.95) mg/dL Est GFR ( Amer) (>60) Est GFR (Non-Af Amer) (>60) BUN/Creatinine Ratio (8-20) Glucose (70-100) mg/dL Lactic Acid (0.5-2.0) mmol/L Calcium (8.6-10.3) mg/dL Magnesium (1.9-2.7) mg/dL Total Bilirubin (0.2-1.0) mg/dL AST (13-39) U/L ALT (7-52) U/L Alkaline Phosphatase (34-104) U/L Total Creatine Kinase (10-223) U/L CK-MB (CK-2) (0.6-6.3) ng/mL Troponin I (<0.04) ng/mL C-Reactive Protein (< 5.00) mg/L B-Natriuretic Peptide ( - 100) pg/mL Total Protein (6.4-8.9) g/dL Albumin (3.2-5.2) g/dL Globulin (2-4) g/dL Albumin/Globulin Ratio (1-3) Lipase (11.0-82.0) U/L TSH (0.34-5.60) mcIU/mL Urine Color Yellow Urine Appearance Cloudy Urine pH 6.0 (5-9) Ur Specific [place] 1.013 (1.010-1.030) Urine Protein 2+(100 mg/dl) H (Negative) Urine Ketones Negative (Negative) Urine Blood 3+ H (Negative) Urine Nitrate Negative (Negative) Urine Bilirubin Negative (Negative) Urine Urobilinogen Negative (Negative) Ur Leukocyte Esterase 3+ H (Negative) Urine WBC (Auto) 3+(>20/hpf) H (Absent) Urine RBC (Auto) 3+(>10/hpf) H (Absent) Urine Bacteria Absent (Absent) Urine Glucose Negative (Negative) 03/26/17 03/26/17 03/26/17 Range/Units 11:10 11:10 11:10 WBC (3.5-10.8) 10^3/ul RBC (4.0-5.4) 10^6/ul Hgb (12.0-16.0) g/dl Hct (35-47) % MCV (80-97) fL MCH (27-31) pg MCHC (31-36) g/dl RDW (10.5-15) % Plt Count (150-450) 10^3/ul MPV (7.4-10.4) um3 Neut % (Auto) (38-83) % Lymph % (Auto) (25-47) % [place] % (Auto) (1-9) % Eos % (Auto) (0-6) % Baso % (Auto) (0-2) % Absolute Neuts (auto) (1.5-7.7) 10^3/ul Absolute Lymphs (auto) (1.0-4.8) 10^3/ul Absolute Monos (auto) (0-0.8) 10^3/ul Absolute Eos (auto) (0-0.6) 10^3/ul Absolute Basos (auto) (0-0.2) 10^3/ul Absolute Nucleated RBC 10^3/ul Nucleated RBC % INR (Anticoag Therapy) (0.89-1.11) APTT (26.0-36.3) seconds Sodium 138 (133-145) mmol/L Potassium 2.7 L* (3.5-5.0) mmol/L Chloride 99 L (101-111) mmol/L Carbon Dioxide 31 (22-32) mmol/L Anion Gap 8 (2-11) mmol/L BUN 16 (6-24) mg/dL Creatinine 0.65 (0.51-0.95) mg/dL Est GFR ( Amer) 111.7 (>60) Est GFR (Non-Af Amer) 86.8 (>60) BUN/Creatinine Ratio 24.6 H (8-20) Glucose 113 H (70-100) mg/dL Lactic Acid 1.1 (0.5-2.0) mmol/L Calcium 9.1 (8.6-10.3) mg/dL Magnesium 2.0 (1.9-2.7) mg/dL Total Bilirubin 0.70 (0.2-1.0) mg/dL AST 10 L (13-39) U/L ALT 6 L (7-52) U/L Alkaline Phosphatase 91 (34-104) U/L Total Creatine Kinase 18 (10-223) U/L CK-MB (CK-2) 1.4 (0.6-6.3) ng/mL Troponin I 0.05 H* (<0.04) ng/mL C-Reactive Protein 237.53 H (< 5.00) mg/L B-Natriuretic Peptide 253 H ( - 100) pg/mL Total Protein 6.3 L (6.4-8.9) g/dL Albumin 3.0 L (3.2-5.2) g/dL Globulin 3.3 (2-4) g/dL Albumin/Globulin Ratio 0.9 L (1-3) Lipase 17 (11.0-82.0) U/L TSH 0.40 (0.34-5.60) mcIU/mL Urine Color Urine Appearance Urine pH (5-9) Ur Specific [place] (1.010-1.030) Urine Protein (Negative) Urine Ketones (Negative) Urine Blood (Negative) Urine Nitrate (Negative) Urine Bilirubin (Negative) Urine Urobilinogen (Negative) Ur Leukocyte Esterase (Negative) Urine WBC (Auto) (Absent) Urine RBC (Auto) (Absent) Urine Bacteria (Absent) Urine Glucose (Negative) Microbiology and Other Data: Microbiology 03/26/17 18:15 Nasal Screen MRSA (PCR)(DONA) - Final Nasal Mrsa Negative 03/26/17 18:15 Legionella Urinary Antigen - Final Urine Negative Legionella Streptococcus pneumoniae Ag Screen - Final Negative S. pneumo Antigen 03/26/17 13:05 Skin and Soft Tissue MRSA/MSSA (PCR - Final Leg Right Mrsa Negative S.aureus Positive Gram Stain - Final Assess/Plan/Problems-Billing Assessment: Ms. Sorensen is an 82 yo female with a PMH of OA, chronic LE wounds, PAD, HTN, and hypothyroidism who presented to the ED on 03/26 with concern for fever and malaise and was found to have concern for sepsis. - Patient Problems (1) Delirium Comment: Acute. No focal deficits,pt has h/o delirium in face of acute infection in the past. Fever of 101 last night , but no evidence of new infection (legs do not appear infected). Blood cx re-drawn today, labs pending. UA ordered. Pt refused to take her Remeron last night. Educated family about the need of pt being active during the day and sleeping during the nigth. Seroquel ordered. 1:1 initiated. (2) E coli bacteremia Comment: Positive blood cx in 4/4 bottles for E. coli. source is urinary Patient was septic on admission by SIRS with leukocytosis, fever, tachypnea, tachycardia. Patient meets sepsis criteria on admission by SOFA with a qSOFA score of 2 for tachypnea and transient altered mental status. ID consult appreciated. cont Ceftriaxone, febrile at night, no evidecne of new infection. (3) UTI (urinary tract infection) Comment: Urine cx and blood cx growing E. coli Continue Ceftriaxone Renal US to r/o obstruction neg (4) Hypokalemia Comment: repleted (5) Chronic wound of extremity Comment: Appreciate wound care consult Dressing changes q48 hours as per wound care h/o MSSA in right leg wound, does not appear acutely infected (6) Peripheral arterial disease Comment: Continue ASA. (7) HTN (hypertension) Comment: Normotensive HCTZ currently on hold (8) Hypothyroidism Comment: TSH 0.4 Continue levothyroxine. (9) DVT prophylaxis Comment: SQ heparin Status and Disposition: Inpatient admit,plan to d/c to [place] when medically ready
[2017-03-29 09:05] LABS: C Reactive Protein 93.5 mg/L (< 5.00); Calcium 8.4 mg/dL (8.6-10.3); EGFR African American 151.2 (>60); EGFR Non-African American 117.5 (>60); Potassium 3.7 mmol/L (3.5-5.0)
[2017-03-29] MEDS: Docusate CAP* 100 MG PO SCH (10:01)
[2017-03-29] MEDS: Magnesium Oxide TAB* 400 MG PO SCH (10:04)
[2017-03-29] MEDS: Aspirin Low Dose CHEW TAB* 81 MG PO SCH (10:04)
[2017-03-29] MEDS: cefTRIAXone VIAL(*) 1,000 MG in NS 0.9% 50 ML* 50 ML IVPB SCH (14:09)
[2017-03-29] MEDS: Ferrous Sulfate TAB* 325 MG PO SCH (14:30)
[2017-03-29] MEDS ORDERED: Ziprasidone IM INJ* 20 MG/ML VIAL IM ONE (15:33)
[2017-03-29] MEDS: Mirtazapine TAB* 15 MG PO SCH (21:17)
[2017-03-30] MEDS: Levothyroxine TAB* 125 MCG TAB PO SCH (05:35)
[2017-03-30] MEDS: Heparin VIAL(*) 5000 UNITS/ML VIAL (FIVE THOUSAND) SUBCUT SCH ×3 (05:35→20:22)
[2017-03-30] MEDS: Magnesium Oxide TAB* 400 MG PO SCH (10:09)
[2017-03-30] MEDS: Aspirin Low Dose CHEW TAB* 81 MG PO SCH (10:11)
[2017-03-30] MEDS: Ferrous Sulfate TAB* 325 MG PO SCH (10:15)
[2017-03-30] MEDS: Docusate CAP* 100 MG PO SCH (10:15)
[2017-03-30] MEDS: cefTRIAXone VIAL(*) 1,000 MG in NS 0.9% 50 ML* 50 ML IVPB SCH (12:12)
--- NOTE | 2017-03-30 13:39 | PN ---
Subjective Date of Service: 03/30/17 Interval History: pt is more cooperative today. slept all night. still very disoriented Family History: Unchanged from Admission Social History: Unchanged from Admission Past Medical History: Unchanged from Admission Objective Active Medications: Acetaminophen (Tylenol Tab*) 650 mg PO Q4H PRN PRN Reason: FEVER/PAIN Last Admin: 03/28/17 23:56 Dose: 650 mg Aspirin (Aspirin Low Dose Tab*) 81 mg PO DAILY [facility] Last Admin: 03/30/17 10:11 Dose: 81 mg Docusate Sodium (Colace Cap*) 200 mg PO DAILY [facility] Last Admin: 03/30/17 10:15 Dose: Not Given Ferrous Sulfate (Ferrous Sulfate Tab*) 325 mg PO DAILY [facility] Last Admin: 03/30/17 10:15 Dose: Not Given Gabapentin (Neurontin Cap(*)) 300 mg PO BID PRN PRN Reason: PAIN Heparin Sodium (Porcine) (Heparin Vial(*)) 5,000 units SUBCUT Q8HR [facility] Last Admin: 03/30/17 05:35 Dose: 5,000 units Ceftriaxone Sodium 1,000 mg/ (Sodium Chloride) 50 mls @ 200 mls/hr IVPB Q24H [facility] Last Admin: 03/30/17 12:12 Dose: 200 mls/hr Levothyroxine Sodium (Synthroid Tab*) 125 mcg PO DAILY@0600 [facility] Last Admin: 03/30/17 05:35 Dose: 125 mcg Magnesium Oxide (Magox 400 Tab*) 800 mg PO DAILY [facility] Last Admin: 03/30/17 10:09 Dose: 800 mg Mirtazapine (Remeron Tab*) 22.5 mg PO BEDTIME [facility] Last Admin: 03/29/17 21:17 Dose: 22.5 mg Ondansetron HCl (Zofran Inj*) 4 mg IV Q6H PRN PRN Reason: NAUSEA Vital Signs 03/29/17 03/29/17 03/29/17 17:42 20:00 20:07 Temperature 98.1 F Pulse Rate 116 Respiratory 16 Rate Blood Pressure 142/104 (mmHg) O2 Sat by Pulse 96 96 Oximetry 03/30/17 03/30/17 03/30/17 01:05 07:57 08:00 Temperature 98.7 F 98.5 F Pulse Rate 97 74 Respiratory 20 16 16 Rate Blood Pressure 162/93 165/82 (mmHg) O2 Sat by Pulse 96 97 Oximetry Oxygen Devices in Use Now: None Appearance: 82 yo F in nAD,cooperative, able to follow commands, thinks she is in. " a garage" Eyes: No Scleral Icterus, PERRLA Ears/Nose/Mouth/Throat: NL Teeth, Lips, Gums, Mucous Membranes Moist Neck: NL Appearance and Movements; NL JVP, Trachea Midline Respiratory: Symmetrical Chest Expansion and Respiratory Effort, Clear to Auscultation Cardiovascular: NL Sounds; No Murmurs; No JVD, RRR Abdominal: NL Sounds; No Tenderness; No Distention Lymphatic: No Cervical Adenopathy Extremities: No Clubbing, Cyanosis Skin: No Nodules or Sclerosis, - - b.l LE's leg wounds not inspected today Neurological: NL Muscle Strength and Tone Result Diagrams: 03/29/17 07:47 03/29/17 07:47 Additional Lab and Data: Lab Results 03/26/17 03/26/17 03/26/17 Range/Units 11:00 11:10 11:10 WBC 14.7 H (3.5-10.8) 10^3/ul RBC 4.83 (4.0-5.4) 10^6/ul Hgb 11.5 L (12.0-16.0) g/dl Hct 37 (35-47) % MCV 77 L (80-97) fL MCH 24 L (27-31) pg MCHC 31 (31-36) g/dl RDW 17 H (10.5-15) % Plt Count 118 L (150-450) 10^3/ul MPV 8 (7.4-10.4) um3 Neut % (Auto) 84.9 H (38-83) % Lymph % (Auto) 3.9 L (25-47) % [place] % (Auto) 10.8 H (1-9) % Eos % (Auto) 0 (0-6) % Baso % (Auto) 0.4 (0-2) % Absolute Neuts (auto) 12.5 H (1.5-7.7) 10^3/ul Absolute Lymphs (auto) 0.6 L (1.0-4.8) 10^3/ul Absolute Monos (auto) 1.6 H (0-0.8) 10^3/ul Absolute Eos (auto) 0 (0-0.6) 10^3/ul Absolute Basos (auto) 0.1 (0-0.2) 10^3/ul Absolute Nucleated RBC 0 10^3/ul Nucleated RBC % 0 INR (Anticoag Therapy) 1.17 H (0.89-1.11) APTT 31.5 (26.0-36.3) seconds Sodium (133-145) mmol/L Potassium (3.5-5.0) mmol/L Chloride (101-111) mmol/L Carbon Dioxide (22-32) mmol/L Anion Gap (2-11) mmol/L BUN (6-24) mg/dL Creatinine (0.51-0.95) mg/dL Est GFR ( Amer) (>60) Est GFR (Non-Af Amer) (>60) BUN/Creatinine Ratio (8-20) Glucose (70-100) mg/dL Lactic Acid (0.5-2.0) mmol/L Calcium (8.6-10.3) mg/dL Magnesium (1.9-2.7) mg/dL Total Bilirubin (0.2-1.0) mg/dL AST (13-39) U/L ALT (7-52) U/L Alkaline Phosphatase (34-104) U/L Total Creatine Kinase (10-223) U/L CK-MB (CK-2) (0.6-6.3) ng/mL Troponin I (<0.04) ng/mL C-Reactive Protein (< 5.00) mg/L B-Natriuretic Peptide ( - 100) pg/mL Total Protein (6.4-8.9) g/dL Albumin (3.2-5.2) g/dL Globulin (2-4) g/dL Albumin/Globulin Ratio (1-3) Lipase (11.0-82.0) U/L TSH (0.34-5.60) mcIU/mL Urine Color Yellow Urine Appearance Cloudy Urine pH 6.0 (5-9) Ur Specific [place] 1.013 (1.010-1.030) Urine Protein 2+(100 mg/dl) H (Negative) Urine Ketones Negative (Negative) Urine Blood 3+ H (Negative) Urine Nitrate Negative (Negative) Urine Bilirubin Negative (Negative) Urine Urobilinogen Negative (Negative) Ur Leukocyte Esterase 3+ H (Negative) Urine WBC (Auto) 3+(>20/hpf) H (Absent) Urine RBC (Auto) 3+(>10/hpf) H (Absent) Urine Bacteria Absent (Absent) Urine Glucose Negative (Negative) 03/26/17 03/26/17 03/26/17 Range/Units 11:10 11:10 11:10 WBC (3.5-10.8) 10^3/ul RBC (4.0-5.4) 10^6/ul Hgb (12.0-16.0) g/dl Hct (35-47) % MCV (80-97) fL MCH (27-31) pg MCHC (31-36) g/dl RDW (10.5-15) % Plt Count (150-450) 10^3/ul MPV (7.4-10.4) um3 Neut % (Auto) (38-83) % Lymph % (Auto) (25-47) % [place] % (Auto) (1-9) % Eos % (Auto) (0-6) % Baso % (Auto) (0-2) % Absolute Neuts (auto) (1.5-7.7) 10^3/ul Absolute Lymphs (auto) (1.0-4.8) 10^3/ul Absolute Monos (auto) (0-0.8) 10^3/ul Absolute Eos (auto) (0-0.6) 10^3/ul Absolute Basos (auto) (0-0.2) 10^3/ul Absolute Nucleated RBC 10^3/ul Nucleated RBC % INR (Anticoag Therapy) (0.89-1.11) APTT (26.0-36.3) seconds Sodium 138 (133-145) mmol/L Potassium 2.7 L* (3.5-5.0) mmol/L Chloride 99 L (101-111) mmol/L Carbon Dioxide 31 (22-32) mmol/L Anion Gap 8 (2-11) mmol/L BUN 16 (6-24) mg/dL Creatinine 0.65 (0.51-0.95) mg/dL Est GFR ( Amer) 111.7 (>60) Est GFR (Non-Af Amer) 86.8 (>60) BUN/Creatinine Ratio 24.6 H (8-20) Glucose 113 H (70-100) mg/dL Lactic Acid 1.1 (0.5-2.0) mmol/L Calcium 9.1 (8.6-10.3) mg/dL Magnesium 2.0 (1.9-2.7) mg/dL Total Bilirubin 0.70 (0.2-1.0) mg/dL AST 10 L (13-39) U/L ALT 6 L (7-52) U/L Alkaline Phosphatase 91 (34-104) U/L Total Creatine Kinase 18 (10-223) U/L CK-MB (CK-2) 1.4 (0.6-6.3) ng/mL Troponin I 0.05 H* (<0.04) ng/mL C-Reactive Protein 237.53 H (< 5.00) mg/L B-Natriuretic Peptide 253 H ( - 100) pg/mL Total Protein 6.3 L (6.4-8.9) g/dL Albumin 3.0 L (3.2-5.2) g/dL Globulin 3.3 (2-4) g/dL Albumin/Globulin Ratio 0.9 L (1-3) Lipase 17 (11.0-82.0) U/L TSH 0.40 (0.34-5.60) mcIU/mL Urine Color Urine Appearance Urine pH (5-9) Ur Specific [place] (1.010-1.030) Urine Protein (Negative) Urine Ketones (Negative) Urine Blood (Negative) Urine Nitrate (Negative) Urine Bilirubin (Negative) Urine Urobilinogen (Negative) Ur Leukocyte Esterase (Negative) Urine WBC (Auto) (Absent) Urine RBC (Auto) (Absent) Urine Bacteria (Absent) Urine Glucose (Negative) Microbiology and Other Data: Microbiology 03/26/17 18:15 Nasal Screen MRSA (PCR)(DONA) - Final Nasal Mrsa Negative 03/26/17 18:15 Legionella Urinary Antigen - Final Urine Negative Legionella Streptococcus pneumoniae Ag Screen - Final Negative S. pneumo Antigen 03/26/17 13:05 Skin and Soft Tissue MRSA/MSSA (PCR - Final Leg Right Mrsa Negative S.aureus Positive Gram Stain - Final Assess/Plan/Problems-Billing Assessment: Ms. Sorensen is an 82 yo female with a PMH of OA, chronic LE wounds, PAD, HTN, and hypothyroidism who presented to the ED on 03/26 with concern for fever and malaise and was found to have concern for sepsis. - Patient Problems (1) Delirium Comment: Acute.With slight improvement today. No focal deficits,pt has h/o delirium in face of acute infection in the past. cont Remeron at bedtime. Educated family about the need of pt being active during the day and sleeping during the night (2) E coli bacteremia Comment: Positive blood cx in 4/4 bottles for E. coli. source is urinary Patient was septic on admission by SIRS with leukocytosis, fever, tachypnea, tachycardia. Patient was septic on admission by SOFA with a qSOFA score of 2 for tachypnea and transient altered mental status. ID consult appreciated. cont Ceftriaxone, febrile at night on 03/29/17, no evidence of new infection. (3) UTI (urinary tract infection) Comment: Urine cx and blood cx growing E. coli Continue Ceftriaxone Renal US to r/o obstruction neg (4) Hypokalemia Comment: repleted (5) Chronic wound of extremity Comment: Appreciate wound care consult Dressing changes q48 hours as per wound care h/o MSSA in right leg wound, does not appear acutely infected (6) Peripheral arterial disease Comment: Continue ASA. (7) HTN (hypertension) Comment: unontrolled restart HCTZ (8) Hypothyroidism Comment: TSH 0.4 Continue levothyroxine. (9) DVT prophylaxis Comment: SQ heparin Status and Disposition: Inpatient admit. Lived at [facility] [place] . suspect she will need STR prior to return to assist living due to delirium.
[2017-03-30] MEDS: Hydrochlorothiazide TAB* 25 MG PO SCH (14:22)
[2017-03-30] MEDS: Acetaminophen TAB* 325 MG PO PRN (21:24)
[2017-03-30] MEDS: Mirtazapine TAB* 15 MG PO SCH (21:24)
[2017-03-31] MEDS: Heparin VIAL(*) 5000 UNITS/ML VIAL (FIVE THOUSAND) SUBCUT SCH ×3 (05:25→20:20)
[2017-03-31] MEDS: Levothyroxine TAB* 125 MCG TAB PO SCH (05:27)
[2017-03-31] MEDS: Magnesium Oxide TAB* 400 MG PO SCH (09:52)
[2017-03-31] MEDS: Hydrochlorothiazide TAB* 25 MG PO SCH (09:52)
[2017-03-31] MEDS: Aspirin Low Dose CHEW TAB* 81 MG PO SCH (09:53)
[2017-03-31] MEDS: Ferrous Sulfate TAB* 325 MG PO SCH (09:54)
[2017-03-31] MEDS: Docusate CAP* 100 MG PO SCH ×2 (09:55→10:07)
--- NOTE | 2017-03-31 12:13 | PN ---
Subjective Date of Service: 03/31/17 Interval History: pt's confusion resolved today. Pleasant, although still refusing certain treatments. no complaints Family History: Unchanged from Admission Social History: Unchanged from Admission Past Medical History: Unchanged from Admission Objective Active Medications: Acetaminophen (Tylenol Tab*) 650 mg PO Q4H PRN PRN Reason: FEVER/PAIN Last Admin: 03/30/17 21:24 Dose: 650 mg Aspirin (Aspirin Low Dose Tab*) 81 mg PO DAILY [facility] Last Admin: 03/31/17 09:53 Dose: 81 mg Docusate Sodium (Colace Cap*) 200 mg PO DAILY [facility] Last Admin: 03/31/17 10:07 Dose: Not Given Ferrous Sulfate (Ferrous Sulfate Tab*) 325 mg PO DAILY [facility] Last Admin: 03/31/17 09:54 Dose: 325 mg Gabapentin (Neurontin Cap(*)) 300 mg PO BID PRN PRN Reason: PAIN Heparin Sodium (Porcine) (Heparin Vial(*)) 5,000 units SUBCUT Q8HR [facility] Last Admin: 03/31/17 05:25 Dose: Not Given Hydrochlorothiazide (Hydrodiuril Tab*) 12.5 mg PO DAILY [facility] Last Admin: 03/31/17 09:52 Dose: 12.5 mg Ceftriaxone Sodium 1,000 mg/ (Sodium Chloride) 50 mls @ 200 mls/hr IVPB Q24H [facility] Last Admin: 03/30/17 12:12 Dose: 200 mls/hr Levothyroxine Sodium (Synthroid Tab*) 125 mcg PO DAILY@0600 [facility] Last Admin: 03/31/17 05:27 Dose: 125 mcg Magnesium Oxide (Magox 400 Tab*) 800 mg PO DAILY [facility] Last Admin: 03/31/17 09:52 Dose: 800 mg Mirtazapine (Remeron Tab*) 22.5 mg PO BEDTIME [facility] Last Admin: 03/30/17 21:24 Dose: 22.5 mg Ondansetron HCl (Zofran Inj*) 4 mg IV Q6H PRN PRN Reason: NAUSEA Vital Signs 03/30/17 03/30/17 03/30/17 15:10 15:11 15:55 Temperature 97.8 F 97.8 F Pulse Rate 82 82 80 Respiratory 16 16 24 Rate Blood Pressure 144/87 144/87 169/94 (mmHg) O2 Sat by Pulse 99 99 99 Oximetry 03/30/17 03/30/17 03/30/17 19:41 19:57 23:39 Temperature 99.5 F 97.1 F Pulse Rate 85 89 Respiratory 16 16 16 Rate Blood Pressure 152/88 169/98 (mmHg) O2 Sat by Pulse 97 97 Oximetry 03/31/17 03/31/17 03/31/17 03:42 03:43 07:31 Temperature 96.8 F 98.4 F Pulse Rate 79 84 Respiratory 18 16 Rate Blood Pressure 168/92 145/81 (mmHg) O2 Sat by Pulse 98 96 Oximetry 03/31/17 03/31/17 08:00 08:54 Temperature Pulse Rate Respiratory 16 Rate Blood Pressure (mmHg) O2 Sat by Pulse 96 Oximetry Oxygen Devices in Use Now: None Appearance: 82 yo M in nAd, aAOx3 Eyes: No Scleral Icterus, PERRLA Ears/Nose/Mouth/Throat: NL Teeth, Lips, Gums, Mucous Membranes Moist Neck: NL Appearance and Movements; NL JVP, Trachea Midline Respiratory: Symmetrical Chest Expansion and Respiratory Effort, Clear to Auscultation Cardiovascular: NL Sounds; No Murmurs; No JVD, RRR Abdominal: NL Sounds; No Tenderness; No Distention, No Hepatosplenomegaly Lymphatic: No Cervical Adenopathy Extremities: No Clubbing, Cyanosis, - - trace b/l pedal edema Skin: No Nodules or Sclerosis, - - leg ulcers known, dressings not removed today Neurological: Alert and Oriented x 3, NL Muscle Strength and Tone Result Diagrams: 03/29/17 07:47 03/29/17 07:47 Additional Lab and Data: Lab Results 03/26/17 03/26/17 03/26/17 Range/Units 11:00 11:10 11:10 WBC 14.7 H (3.5-10.8) 10^3/ul RBC 4.83 (4.0-5.4) 10^6/ul Hgb 11.5 L (12.0-16.0) g/dl Hct 37 (35-47) % MCV 77 L (80-97) fL MCH 24 L (27-31) pg MCHC 31 (31-36) g/dl RDW 17 H (10.5-15) % Plt Count 118 L (150-450) 10^3/ul MPV 8 (7.4-10.4) um3 Neut % (Auto) 84.9 H (38-83) % Lymph % (Auto) 3.9 L (25-47) % Faulk % (Auto) 10.8 H (1-9) % Eos % (Auto) 0 (0-6) % Baso % (Auto) 0.4 (0-2) % Absolute Neuts (auto) 12.5 H (1.5-7.7) 10^3/ul Absolute Lymphs (auto) 0.6 L (1.0-4.8) 10^3/ul Absolute Monos (auto) 1.6 H (0-0.8) 10^3/ul Absolute Eos (auto) 0 (0-0.6) 10^3/ul Absolute Basos (auto) 0.1 (0-0.2) 10^3/ul Absolute Nucleated RBC 0 10^3/ul Nucleated RBC % 0 INR (Anticoag Therapy) 1.17 H (0.89-1.11) APTT 31.5 (26.0-36.3) seconds Sodium (133-145) mmol/L Potassium (3.5-5.0) mmol/L Chloride (101-111) mmol/L Carbon Dioxide (22-32) mmol/L Anion Gap (2-11) mmol/L BUN (6-24) mg/dL Creatinine (0.51-0.95) mg/dL Est GFR ( Amer) (>60) Est GFR (Non-Af Amer) (>60) BUN/Creatinine Ratio (8-20) Glucose (70-100) mg/dL Lactic Acid (0.5-2.0) mmol/L Calcium (8.6-10.3) mg/dL Magnesium (1.9-2.7) mg/dL Total Bilirubin (0.2-1.0) mg/dL AST (13-39) U/L ALT (7-52) U/L Alkaline Phosphatase (34-104) U/L Total Creatine Kinase (10-223) U/L CK-MB (CK-2) (0.6-6.3) ng/mL Troponin I (<0.04) ng/mL C-Reactive Protein (< 5.00) mg/L B-Natriuretic Peptide ( - 100) pg/mL Total Protein (6.4-8.9) g/dL Albumin (3.2-5.2) g/dL Globulin (2-4) g/dL Albumin/Globulin Ratio (1-3) Lipase (11.0-82.0) U/L TSH (0.34-5.60) mcIU/mL Urine Color Yellow Urine Appearance Cloudy Urine pH 6.0 (5-9) Ur Specific [place] 1.013 (1.010-1.030) Urine Protein 2+(100 mg/dl) H (Negative) Urine Ketones Negative (Negative) Urine Blood 3+ H (Negative) Urine Nitrate Negative (Negative) Urine Bilirubin Negative (Negative) Urine Urobilinogen Negative (Negative) Ur Leukocyte Esterase 3+ H (Negative) Urine WBC (Auto) 3+(>20/hpf) H (Absent) Urine RBC (Auto) 3+(>10/hpf) H (Absent) Urine Bacteria Absent (Absent) Urine Glucose Negative (Negative) 03/26/17 03/26/17 03/26/17 Range/Units 11:10 11:10 11:10 WBC (3.5-10.8) 10^3/ul RBC (4.0-5.4) 10^6/ul Hgb (12.0-16.0) g/dl Hct (35-47) % MCV (80-97) fL MCH (27-31) pg MCHC (31-36) g/dl RDW (10.5-15) % Plt Count (150-450) 10^3/ul MPV (7.4-10.4) um3 Neut % (Auto) (38-83) % Lymph % (Auto) (25-47) % Faulk % (Auto) (1-9) % Eos % (Auto) (0-6) % Baso % (Auto) (0-2) % Absolute Neuts (auto) (1.5-7.7) 10^3/ul Absolute Lymphs (auto) (1.0-4.8) 10^3/ul Absolute Monos (auto) (0-0.8) 10^3/ul Absolute Eos (auto) (0-0.6) 10^3/ul Absolute Basos (auto) (0-0.2) 10^3/ul Absolute Nucleated RBC 10^3/ul Nucleated RBC % INR (Anticoag Therapy) (0.89-1.11) APTT (26.0-36.3) seconds Sodium 138 (133-145) mmol/L Potassium 2.7 L* (3.5-5.0) mmol/L Chloride 99 L (101-111) mmol/L Carbon Dioxide 31 (22-32) mmol/L Anion Gap 8 (2-11) mmol/L BUN 16 (6-24) mg/dL Creatinine 0.65 (0.51-0.95) mg/dL Est GFR ( Amer) 111.7 (>60) Est GFR (Non-Af Amer) 86.8 (>60) BUN/Creatinine Ratio 24.6 H (8-20) Glucose 113 H (70-100) mg/dL Lactic Acid 1.1 (0.5-2.0) mmol/L Calcium 9.1 (8.6-10.3) mg/dL Magnesium 2.0 (1.9-2.7) mg/dL Total Bilirubin 0.70 (0.2-1.0) mg/dL AST 10 L (13-39) U/L ALT 6 L (7-52) U/L Alkaline Phosphatase 91 (34-104) U/L Total Creatine Kinase 18 (10-223) U/L CK-MB (CK-2) 1.4 (0.6-6.3) ng/mL Troponin I 0.05 H* (<0.04) ng/mL C-Reactive Protein 237.53 H (< 5.00) mg/L B-Natriuretic Peptide 253 H ( - 100) pg/mL Total Protein 6.3 L (6.4-8.9) g/dL Albumin 3.0 L (3.2-5.2) g/dL Globulin 3.3 (2-4) g/dL Albumin/Globulin Ratio 0.9 L (1-3) Lipase 17 (11.0-82.0) U/L TSH 0.40 (0.34-5.60) mcIU/mL Urine Color Urine Appearance Urine pH (5-9) Ur Specific [place] (1.010-1.030) Urine Protein (Negative) Urine Ketones (Negative) Urine Blood (Negative) Urine Nitrate (Negative) Urine Bilirubin (Negative) Urine Urobilinogen (Negative) Ur Leukocyte Esterase (Negative) Urine WBC (Auto) (Absent) Urine RBC (Auto) (Absent) Urine Bacteria (Absent) Urine Glucose (Negative) Microbiology and Other Data: Microbiology 03/26/17 18:15 Nasal Screen MRSA (PCR)(DONA) - Final Nasal Mrsa Negative 03/26/17 18:15 Legionella Urinary Antigen - Final Urine Negative Legionella Streptococcus pneumoniae Ag Screen - Final Negative S. pneumo Antigen 03/26/17 13:05 Skin and Soft Tissue MRSA/MSSA (PCR - Final Leg Right Mrsa Negative S.aureus Positive Gram Stain - Final Assess/Plan/Problems-Billing Assessment: Ms. Sorensen is an 82 yo female with a PMH of OA, chronic LE wounds, PAD, HTN, and hypothyroidism who presented to the ED on 03/26 with concern for fever and malaise and was found to have concern for sepsis. - Patient Problems (1) Delirium Comment: Acute due to UTI related encephalopathy , resolved. Pt has h/o delirium in face of acute infection in the past. cont Remeron at bedtime. Educated family about the need of pt being active during the day and sleeping during the night (2) E coli bacteremia Comment: Positive blood cx in 4/4 bottles for E. coli. source is urinary Patient was septic on admission by SOFA criteria with encephalopathy, thrombocythemia ID consult appreciated. cont Ceftriaxone, febrile at night on 03/29/17, no evidence of new infection. (3) UTI (urinary tract infection) Comment: Urine cx and blood cx growing E. coli Continue Ceftriaxone Renal US to r/o obstruction neg (4) Hypokalemia Comment: repleted (5) Chronic wound of extremity Comment: Appreciate wound care consult Dressing changes q48 hours as per wound care h/o MSSA in right leg wound, does not appear acutely infected (6) Peripheral arterial disease Comment: Continue ASA. (7) HTN (hypertension) Comment: controlled cont HCTZ (8) Hypothyroidism Comment: TSH 0.4 Continue levothyroxine. (9) DVT prophylaxis Comment: SQ heparin Status and Disposition: Inpatient admit. Lived at [facility] living at [place] , will be re-evaluated by [place] tomorrow. Anticipated day of discharge tomorrow
[2017-03-31] MEDS: cefTRIAXone VIAL(*) 1,000 MG in NS 0.9% 50 ML* 50 ML IVPB SCH (13:00)
[2017-03-31] MEDS: Mirtazapine TAB* 15 MG PO SCH (21:02)
[2017-04-01] MEDS: Heparin VIAL(*) 5000 UNITS/ML VIAL (FIVE THOUSAND) SUBCUT SCH (05:10)
[2017-04-01] MEDS: Levothyroxine TAB* 125 MCG TAB PO SCH (05:53)
--- NOTE | 2017-04-01 08:17 | PN ---
Subjective Date of Service: 04/01/17 Interval History: Pt had a good night. Wants to go back to [place]. Knows that the date is " a day after the March" Family History: Unchanged from Admission Social History: Unchanged from Admission Past Medical History: Unchanged from Admission Objective Active Medications: Acetaminophen (Tylenol Tab*) 650 mg PO Q4H PRN PRN Reason: FEVER/PAIN Last Admin: 03/30/17 21:24 Dose: 650 mg Aspirin (Aspirin Low Dose Tab*) 81 mg PO DAILY [facility] Last Admin: 03/31/17 09:53 Dose: 81 mg Docusate Sodium (Colace Cap*) 200 mg PO DAILY [facility] Last Admin: 03/31/17 10:07 Dose: Not Given Ferrous Sulfate (Ferrous Sulfate Tab*) 325 mg PO DAILY [facility] Last Admin: 03/31/17 09:54 Dose: 325 mg Gabapentin (Neurontin Cap(*)) 300 mg PO BID PRN PRN Reason: PAIN Heparin Sodium (Porcine) (Heparin Vial(*)) 5,000 units SUBCUT Q8HR [facility] Last Admin: 04/01/17 05:10 Dose: Not Given Hydrochlorothiazide (Hydrodiuril Tab*) 12.5 mg PO DAILY [facility] Last Admin: 03/31/17 09:52 Dose: 12.5 mg Ceftriaxone Sodium 1,000 mg/ (Sodium Chloride) 50 mls @ 200 mls/hr IVPB Q24H [facility] Last Admin: 03/31/17 13:00 Dose: 200 mls/hr Levothyroxine Sodium (Synthroid Tab*) 125 mcg PO DAILY@0600 [facility] Last Admin: 04/01/17 05:53 Dose: 125 mcg Magnesium Oxide (Magox 400 Tab*) 800 mg PO DAILY [facility] Last Admin: 03/31/17 09:52 Dose: 800 mg Mirtazapine (Remeron Tab*) 22.5 mg PO BEDTIME [facility] Last Admin: 03/31/17 21:02 Dose: 22.5 mg Ondansetron HCl (Zofran Inj*) 4 mg IV Q6H PRN PRN Reason: NAUSEA Vital Signs 03/31/17 03/31/17 03/31/17 08:54 12:00 15:16 Temperature Pulse Rate 76 91 Respiratory 17 15 Rate Blood Pressure 147/80 142/81 (mmHg) O2 Sat by Pulse 96 97 100 Oximetry 03/31/17 03/31/17 03/31/17 19:35 20:00 23:43 Temperature 98.6 F 97.7 F Pulse Rate 92 71 Respiratory 15 16 20 Rate Blood Pressure 138/79 138/86 (mmHg) O2 Sat by Pulse 98 98 Oximetry 04/01/17 04/01/17 02:02 03:25 Temperature 97.3 F Pulse Rate 74 Respiratory 16 Rate Blood Pressure 148/90 (mmHg) O2 Sat by Pulse 95 99 Oximetry Oxygen Devices in Use Now: None Appearance: 82 yo F in nAD, aAOx3 Eyes: No Scleral Icterus, PERRLA Ears/Nose/Mouth/Throat: NL Teeth, Lips, Gums, Mucous Membranes Moist Neck: NL Appearance and Movements; NL JVP, Trachea Midline Respiratory: Symmetrical Chest Expansion and Respiratory Effort, Clear to Auscultation Cardiovascular: NL Sounds; No Murmurs; No JVD, RRR Abdominal: NL Sounds; No Tenderness; No Distention Lymphatic: No Cervical Adenopathy Extremities: No Clubbing, Cyanosis, - - trace pedal edema b/l Skin: - - several ulcers on b/l LE's unchanged, stage 2-3 covered with eschar, size 2-3 cm, not infected, approx 4-5 total Neurological: Alert and Oriented x 3, NL Muscle Strength and Tone Result Diagrams: 03/29/17 07:47 03/29/17 07:47 Additional Lab and Data: Lab Results 03/26/17 03/26/17 03/26/17 Range/Units 11:00 11:10 11:10 WBC 14.7 H (3.5-10.8) 10^3/ul RBC 4.83 (4.0-5.4) 10^6/ul Hgb 11.5 L (12.0-16.0) g/dl Hct 37 (35-47) % MCV 77 L (80-97) fL MCH 24 L (27-31) pg MCHC 31 (31-36) g/dl RDW 17 H (10.5-15) % Plt Count 118 L (150-450) 10^3/ul MPV 8 (7.4-10.4) um3 Neut % (Auto) 84.9 H (38-83) % Lymph % (Auto) 3.9 L (25-47) % [place] % (Auto) 10.8 H (1-9) % Eos % (Auto) 0 (0-6) % Baso % (Auto) 0.4 (0-2) % Absolute Neuts (auto) 12.5 H (1.5-7.7) 10^3/ul Absolute Lymphs (auto) 0.6 L (1.0-4.8) 10^3/ul Absolute Monos (auto) 1.6 H (0-0.8) 10^3/ul Absolute Eos (auto) 0 (0-0.6) 10^3/ul Absolute Basos (auto) 0.1 (0-0.2) 10^3/ul Absolute Nucleated RBC 0 10^3/ul Nucleated RBC % 0 INR (Anticoag Therapy) 1.17 H (0.89-1.11) APTT 31.5 (26.0-36.3) seconds Sodium (133-145) mmol/L Potassium (3.5-5.0) mmol/L Chloride (101-111) mmol/L Carbon Dioxide (22-32) mmol/L Anion Gap (2-11) mmol/L BUN (6-24) mg/dL Creatinine (0.51-0.95) mg/dL Est GFR ( Amer) (>60) Est GFR (Non-Af Amer) (>60) BUN/Creatinine Ratio (8-20) Glucose (70-100) mg/dL Lactic Acid (0.5-2.0) mmol/L Calcium (8.6-10.3) mg/dL Magnesium (1.9-2.7) mg/dL Total Bilirubin (0.2-1.0) mg/dL AST (13-39) U/L ALT (7-52) U/L Alkaline Phosphatase (34-104) U/L Total Creatine Kinase (10-223) U/L CK-MB (CK-2) (0.6-6.3) ng/mL Troponin I (<0.04) ng/mL C-Reactive Protein (< 5.00) mg/L B-Natriuretic Peptide ( - 100) pg/mL Total Protein (6.4-8.9) g/dL Albumin (3.2-5.2) g/dL Globulin (2-4) g/dL Albumin/Globulin Ratio (1-3) Lipase (11.0-82.0) U/L TSH (0.34-5.60) mcIU/mL Urine Color Yellow Urine Appearance Cloudy Urine pH 6.0 (5-9) Ur Specific [place] 1.013 (1.010-1.030) Urine Protein 2+(100 mg/dl) H (Negative) Urine Ketones Negative (Negative) Urine Blood 3+ H (Negative) Urine Nitrate Negative (Negative) Urine Bilirubin Negative (Negative) Urine Urobilinogen Negative (Negative) Ur Leukocyte Esterase 3+ H (Negative) Urine WBC (Auto) 3+(>20/hpf) H (Absent) Urine RBC (Auto) 3+(>10/hpf) H (Absent) Urine Bacteria Absent (Absent) Urine Glucose Negative (Negative) 03/26/17 03/26/17 03/26/17 Range/Units 11:10 11:10 11:10 WBC (3.5-10.8) 10^3/ul RBC (4.0-5.4) 10^6/ul Hgb (12.0-16.0) g/dl Hct (35-47) % MCV (80-97) fL MCH (27-31) pg MCHC (31-36) g/dl RDW (10.5-15) % Plt Count (150-450) 10^3/ul MPV (7.4-10.4) um3 Neut % (Auto) (38-83) % Lymph % (Auto) (25-47) % [place]ell % (Auto) (1-9) % Eos % (Auto) (0-6) % Baso % (Auto) (0-2) % Absolute Neuts (auto) (1.5-7.7) 10^3/ul Absolute Lymphs (auto) (1.0-4.8) 10^3/ul Absolute Monos (auto) (0-0.8) 10^3/ul Absolute Eos (auto) (0-0.6) 10^3/ul Absolute Basos (auto) (0-0.2) 10^3/ul Absolute Nucleated RBC 10^3/ul Nucleated RBC % INR (Anticoag Therapy) (0.89-1.11) APTT (26.0-36.3) seconds Sodium 138 (133-145) mmol/L Potassium 2.7 L* (3.5-5.0) mmol/L Chloride 99 L (101-111) mmol/L Carbon Dioxide 31 (22-32) mmol/L Anion Gap 8 (2-11) mmol/L BUN 16 (6-24) mg/dL Creatinine 0.65 (0.51-0.95) mg/dL Est GFR ( Amer) 111.7 (>60) Est GFR (Non-Af Amer) 86.8 (>60) BUN/Creatinine Ratio 24.6 H (8-20) Glucose 113 H (70-100) mg/dL Lactic Acid 1.1 (0.5-2.0) mmol/L Calcium 9.1 (8.6-10.3) mg/dL Magnesium 2.0 (1.9-2.7) mg/dL Total Bilirubin 0.70 (0.2-1.0) mg/dL AST 10 L (13-39) U/L ALT 6 L (7-52) U/L Alkaline Phosphatase 91 (34-104) U/L Total Creatine Kinase 18 (10-223) U/L CK-MB (CK-2) 1.4 (0.6-6.3) ng/mL Troponin I 0.05 H* (<0.04) ng/mL C-Reactive Protein 237.53 H (< 5.00) mg/L B-Natriuretic Peptide 253 H ( - 100) pg/mL Total Protein 6.3 L (6.4-8.9) g/dL Albumin 3.0 L (3.2-5.2) g/dL Globulin 3.3 (2-4) g/dL Albumin/Globulin Ratio 0.9 L (1-3) Lipase 17 (11.0-82.0) U/L TSH 0.40 (0.34-5.60) mcIU/mL Urine Color Urine Appearance Urine pH (5-9) Ur Specific [place] (1.010-1.030) Urine Protein (Negative) Urine Ketones (Negative) Urine Blood (Negative) Urine Nitrate (Negative) Urine Bilirubin (Negative) Urine Urobilinogen (Negative) Ur Leukocyte Esterase (Negative) Urine WBC (Auto) (Absent) Urine RBC (Auto) (Absent) Urine Bacteria (Absent) Urine Glucose (Negative) Microbiology and Other Data: Microbiology 03/26/17 18:15 Nasal Screen MRSA (PCR)(DONA) - Final Nasal Mrsa Negative 03/26/17 18:15 Legionella Urinary Antigen - Final Urine Negative Legionella Streptococcus pneumoniae Ag Screen - Final Negative S. pneumo Antigen 03/26/17 13:05 Skin and Soft Tissue MRSA/MSSA (PCR - Final Leg Right Mrsa Negative S.aureus Positive Gram Stain - Final Assess/Plan/Problems-Billing Assessment: Ms. Sorensen is an 82 yo female with a PMH of OA, chronic LE wounds, PAD, HTN, and hypothyroidism who presented to the ED on 03/26 with concern for fever and malaise and was found to have concern for sepsis. - Patient Problems (1) Delirium Comment: Acute due to UTI related encephalopathy , resolved. Pt has h/o delirium in face of acute infection in the past. cont Remeron at bedtime. Educated family about the need of pt being active during the day and sleeping during the night (2) E coli bacteremia Comment: Positive blood cx in 4/4 bottles for E. coli. source is urinary Patient was septic on admission by SOFA criteria with encephalopathy, thrombocythemia ID consult appreciated. Keflex x 10 days at discharge (3) UTI (urinary tract infection) Comment: Urine cx and blood cx growing E. coli Continue Ceftriaxone Renal US to r/o obstruction neg (4) Hypokalemia Comment: repleted (5) Chronic wound of extremity Comment: Appreciate wound care consult Dressing changes q48 hours as per wound care h/o MSSA in right leg wound, does not appear acutely infected (6) Peripheral arterial disease Comment: Continue ASA. (7) HTN (hypertension) Comment: controlled cont HCTZ (8) Hypothyroidism Comment: TSH 0.4 Continue levothyroxine. (9) DVT prophylaxis Comment: SQ heparin Status and Disposition: Inpatient admit. Will be re-evaluated by [facility] ram[facility] today. Anticipated day of discharge today
[2017-04-01] MEDS: Hydrochlorothiazide TAB* 25 MG PO SCH (10:00)
[2017-04-01] MEDS: Aspirin Low Dose CHEW TAB* 81 MG PO SCH (10:00)
[2017-04-01] MEDS: Docusate CAP* 100 MG PO SCH (10:00)
[2017-04-01] MEDS: Ferrous Sulfate TAB* 325 MG PO SCH (10:01)
[2017-04-01] MEDS: Magnesium Oxide TAB* 400 MG PO SCH (10:01)
[2017-04-01 11:52] VITALS: BP 146/72
[2017-04-01] MEDS: cefTRIAXone VIAL(*) 1,000 MG in NS 0.9% 50 ML* 50 ML IVPB SCH (12:24)
--- NOTE | 2017-04-01 16:39 | DS ---
CC: Dr. Casas; Dr. Garvin * DISCHARGE SUMMARY: DATE OF ADMISSION: 03/26/17 DATE OF DISCHARGE: 04/01/17 PRIMARY CARE PROVIDER: Dr. Garvin. DISCHARGE DIAGNOSES: 1. Sepsis due to Escherichia coli urinary tract infection with Escherichia coli bacteriemia. 2. Delirium due to sepsis. SECONDARY DIAGNOSES: 1. History of delirium episodes whenever the patient is sick in the hospital. 2. History of arthritis. 3. History of bilateral lower extremity wounds. 4. History of peripheral arterial disease. 5. Hypertension. 6. Hypothyroidism. MEDICATIONS AT DISCHARGE: Include 1. Keflex 500 mg p.o. 4 times a day for a total of 10 days after discharge. The remaining medications are unchanged apart from discontinuation of oxycodone that the patient did not utilize during the hospital stay and those include: 1. Acetaminophen 1000 mg p.o. every 6 hours p.r.n. 2. Vitamin C 500 mg daily. 3. Aspirin 81 mg daily. 4. Colace 200 mg daily. 5. Ferrous sulfate 325 mg daily. 6. Neurontin 300 mg b.i.d. 7. Hydrochlorothiazide 12.5 mg daily. 8. Hydrocortisone 1% cream apply to affected areas b.i.d. p.r.n. 9. Levothyroxine 125 mcg daily. 10. Lidocaine 4% topical 1 application daily. 11. Remeron 22.5 mg at bedtime. In regards to the patient's wound care, it is every 48 hours. Left leg was to be covered with Medigrip with Kerlix dressing. Right leg should be covered with collagen to cut to wound sizes and all open areas, moistened with saline, and cover with gauze and Medigrip. The patient is also to follow with Wound Care at [facility] as previously utilized. LABORATORY DATA AND STUDIES PERFORMED DURING THE HOSPITAL STAY: Included: On 03/29/17, white blood cell count of 7.9, hemoglobin of 9.9, hematocrit of 31, and platelets of 123. Sodium was 140, potassium 3.7, chloride 109, carbon dioxide 26, BUN 9, creatinine 0.5. The patient's troponin throughout her hospital stay was 0.04. Microbiology results showed initial blood cultures positive for E. coli, was sensitive to all the antibiotics tested. Repeat blood cultures on 03/29/17 were negative for any pathogens. Wound culture was performed from the lower extremities and was noted to be positive for MSSA. CONSULTATIONS DURING THE HOSPITAL STAY: Included Dr. Casas from Infectious Diseases. RADIOLOGY STUDIES: Abdominal and bladder ultrasound obtained on 03/27/17, impression: "Small right renal cyst. No evidence for hydronephrosis. Limited evaluation of the bladder." Chest x-ray obtained on admission, impression: "No active disease." C-spine CT on admission, impression: "Advanced osteoarthritic changes with multilevel canal and foraminal narrowing. No acute findings." Brain CT, impression: "No evidence for acute intracranial abnormality. Atrophy and [id number] chronic small vessel ischemic changes. That was documented on 03/26/17." HOSPITALIZATION COURSE: Ángela Sorensen is an 82-year-old female, who lives at assisted living facility at [place] and presented to the hospital on 03/26/17 with complaints of fever, not feeling well. Her blood cultures turned out to be positive for E. coli so were the urine cultures. The patient was originally treated with ceftriaxone intravenously and Dr. Casas saw the patient in consultation and recommended continuation of ceftriaxone. On 03/28/17, at night , the patient had a spike of fever. She also refused her Remeron, did not sleep all night, and became acutely delirious. The delirium continued for a couple of days. She was treated with Geodon with good results. She had a good sleep and the delirium resolved by 03/31/17. She is back to her neurologic baseline. She does keep on refusing some of the testing and sometimes, she refuses her medications, but otherwise she is oriented x3. She is going to be discharged back to [place] with recommendation of 10 days of p.o. antibiotics as recommended by Dr. Casas. PHYSICAL EXAMINATION: For physical exam at discharge, please see daily progress notes. At discharge, the patient was recommended to follow up with her primary care provider in approximately 4 to 7 days. [id number]/[facility] #: [id number] MARÍA
== END 2017-04-01 13:00 | DRG 871 ==
LOC: ED 10:37 → MEDTELE 12:29 → MED 03-30 14:58
PROVIDERS: ADMIT Hospitalist; ATTEND Internal Medicine
DX: A41.51 Sepsis due to Escherichia coli [E. coli] (principal); G93.40 Encephalopathy, unspecified; F05 Delirium due to known physiological condition; I24.8 Other forms of acute ischemic heart disease; N39.0 Urinary tract infection, site not specified; L97.929 Non-pressure chronic ulcer of unspecified part of left lower leg with unspecified severity; L97.919 Non-pressure chronic ulcer of unspecified part of right lower leg with unspecified severity; B96.20 Unspecified Escherichia coli [E. coli] as the cause of diseases classified elsewhere; M19.90 Unspecified osteoarthritis, unspecified site; I73.9 Peripheral vascular disease, unspecified; I10 Essential (primary) hypertension; E03.9 Hypothyroidism, unspecified; E87.6 Hypokalemia; Z96.641 Presence of right artificial hip joint; Z96.651 Presence of right artificial knee joint; Z80.3 Family history of malignant neoplasm of breast; Z88.0 Allergy status to penicillin; Z79.899 Other long term (current) drug therapy; Z79.891 Long term (current) use of opiate analgesic; Z79.82 Long term (current) use of aspirin; Z79.1 Long term (current) use of non-steroidal anti-inflammatories (NSAID)
CPT/HCPCS: 36415; 70450; 71010; 72125; 76770; 80048; 80053; 81003; 81015; 82550; 82553; 83605; 83690; 83735; 83880; 84443; 84484; 85025; 85027; 85610; 85730; 86140; 87040; 87070; 87077; 87086; 87186; 87205; 87640; 87641; 87899; 93005; 94760; 97597; A9270-GY; J0696; J1644; J1956; J3480

== ENCOUNTER 2018-03-25 22:53 | Inpatient (IN) | payer MEDICARE ==
[2018-03-25] MEDS ORDERED: NS 0.9% 1000 ML* 1,000 ML IV ONE (23:31)
[2018-03-26 00:21] LABS: INR 1.04 (0.77-1.02)
[2018-03-26 00:31] LABS: ABS Basophils 0 10^3/ul (0-0.2); ABS Eosinophils 0.1 10^3/ul (0-0.6); ABS Lymphocytes 1.6 10^3/ul (1.0-4.8); ABS Monocytes 1.2 10^3/ul (0-0.8); ABS Neutrophils 5.8 10^3/ul (1.5-7.7); ABS Nucleated RBC 0 10^3/ul; Hematocrit 42 % (35-47); Hemoglobin 14.1 g/dl (12.0-16.0); Lymphocyte % 18.8 % (25-47); Mean Corpuscular HGB Conc 33 g/dl (31-36); Mean Corpuscular Hemoglobin 26 pg (27-31); Mean Corpuscular Volume 79 fL (80-97); Mean Platelet Volume 7.5 um3 (7.4-10.4); Nucleated Red Blood Cells % 0; Platelet Count 262 10^3/ul (150-450); Red Blood Count 5.37 10^6/ul (4.00-5.40); Red Cell Distribution Width 15 % (10.5-15); White Blood Count 8.7 10^3/ul (3.5-10.8)
[2018-03-26 00:36] LABS: EGFR Non-African American 114.6 (>60)
[2018-03-26] MEDS ORDERED: Levofloxacin 750 MG IVPREMIX(* 750 MG/150 ML BAG IVPB ONE (00:42)
[2018-03-26 00:53] LABS: Urine Appearance Turbid; Urine Blood 1+ (Negative); Urine Color Amber; Urine Ketones Negative (Negative); Urine Protein 2+(100 mg/dL) (Negative); Urine Specific Gravity 1.016 (1.010-1.030); Urine Urobilinogen Positive (Negative)
--- NOTE | 2018-03-26 02:36 | HP ---
H&P (Free Text) History and Physical: PCP: Date/Time: CC: HPI: PMedHx PSurgHx SocHx: FamHx: ROS: as above, otherwise reviewed and all were negative vitals: Constitutional: NAD, normally developed, well-nourished HEENM: atraumatic; sclera/conjunctiva: ; hearing: ; oropharynx: Neck: soft tissue: ; thyroid: Pulmonary: clear to auscultation bilaterally, good aeration, no accessory muscle use CV: RR/RR, normal S1S2, no carotid bruit, no jugular venous distention, 2+ B DP/ PT, no edema Abdominal: soft, non-distended, non-tender, no rebound/guarding/rigidity, normoactive bowel sounds, no hepatosplenomegaly or masses, no costovertebral angle tenderness Musculoskeletal: general: ; gait: Integumental: Psychiatric orientation: affect: mood: eye contact: content: memory: responses: insight: Testing: ECG, personally reviewed: CXR, personally reviewed: Impression: DIAGNOSIS & PLAN Primary Secondary Admission Rational: DVTp: Code Status: HCP:
--- NOTE | 2018-03-26 03:32 | HP ---
H&P (Free Text) History and Physical: PCP: Naz Garvin MD Date/Time: 03/26/2018 0300 CC: confusion HPI: Mrs Sorensen is an 83YO female HX HTN, PAOD, hypothyroidism presenting from [place] with staff there reporting increased confusion & combativeness. Upon my evaluation, she is very irritable with being asked questions and the answers she gives are inaccurate. As in, she believes she still lives at home with her . She is aware of being in the hospital, but cannot state why. She denies any complaints and believes she is at her baseline. However, ED evaluation identified a UTI as the likely source of her confusion. She does not meet SIRS criteria. PMedHx HTN PAOD hypothyroidism advanced dementia Ambulatory Orders Nursing to reconcile. Levothyroxine TAB* [Synthroid 125 MCG TAB*] 125 mcg PO DAILY 01/08/16 Aspirin 81 mg CHEW TAB* 81 mg PO DAILY tab.chew 11/06/16 Ascorbic Acid TAB* [Vitamin C TAB*] 500 mg PO DAILY 02/02/17 Docusate CAP* [Colace Cap*] 200 mg PO DAILY 02/02/17 Ferrous Sulfate TAB* 325 mg PO DAILY 02/02/17 Acetaminophen [Acetaminophen Extra Stren] 1,000 mg PO Q6HR PRN 03/26/17 Gabapentin CAP(*) [Neurontin 300 CAP(*)] 300 mg PO BID PRN 03/26/17 Hydrochlorothiazide TAB* [Hydrodiuril TAB*] 12.5 mg PO DAILY 03/26/17 Hydrocortisone 1% CREAM(NF) 1 applic TOPICAL BID PRN 03/26/17 Lidocaine 4% TOPICAL* 1 applic TOPICAL QAM 03/26/17 Mirtazapine TAB* [Remeron TAB*] 22.5 mg PO BEDTIME 03/26/17 Cephalexin CAP* [Keflex CAP*] 500 mg PO QID #40 cap 04/01/17 Allergies Penicillins Allergy (Verified 03/25/18 23:01) Anaphylatic Shock PSurgHx L-spine surgery R JARED R TKA SocHx: no tobacco, alcohol, or recreational drugs; resides at [place]; DNR code status FamHx: Mother: breast CA; Father: passed at 96 2nd "old age" ROS: attempted, but patient refused/unable vitals: Vital Signs Temp 37.4 C 03/25/18 22:58 Pulse 76 03/26/18 01:27 Resp 18 03/25/18 22:58 BP 124/80 03/26/18 01:27 Pulse Ox 96 03/26/18 01:27 Intake & Output 03/25/18 03/25/18 03/26/18 11:59 23:59 11:59 Weight 49.895 kg Constitutional: NAD, normally developed, well-nourished elderly white female HEENM: atraumatic; sclera/conjunctiva: anicteric/clear; hearing: clinically intact; oropharynx: clear, mucosa moist Neck: soft tissue: no nuchal rigidity; thyroid: normal Pulmonary: clear to auscultation bilaterally, good aeration, no accessory muscle use CV: RR/RR, normal S1S2, no carotid bruit, no jugular venous distention, 2+ B DP/ PT, trace BLE edema Abdominal: soft, non-distended, non-tender, no rebound/guarding/rigidity, normoactive bowel sounds, no hepatosplenomegaly or masses, no costovertebral angle tenderness Musculoskeletal: general: grossly intact Integumental: inflamed B hagen wounds without warmth, drainage, malodor, or induration Psychiatric orientation: AA&O to PP, not TS affect: irritable mood: uncooperative eye contact: fair to good content: unreliable memory: markedly impaired responses: timely insight: poor Testing: Lab Results 03/26/18 03/26/18 03/26/18 Range/Units 00:05 00:05 00:05 WBC 8.7 (3.5-10.8) 10^3/ul RBC 5.37 (4.00-5.40) 10^6/ul Hgb 14.1 (12.0-16.0) g/dl Hct 42 (35-47) % MCV 79 L (80-97) fL MCH 26 L (27-31) pg MCHC 33 (31-36) g/dl RDW 15 (10.5-15) % Plt Count 262 (150-450) 10^3/ul MPV 7.5 (7.4-10.4) um3 Neut % (Auto) 66.7 (38-83) % Lymph % (Auto) 18.8 L (25-47) % [place] % (Auto) 13.2 H (0-7) % Eos % (Auto) 1.0 (0-6) % Baso % (Auto) 0.3 (0-2) % Absolute Neuts (auto) 5.8 (1.5-7.7) 10^3/ul Absolute Lymphs (auto) 1.6 (1.0-4.8) 10^3/ul Absolute Monos (auto) 1.2 H (0-0.8) 10^3/ul Absolute Eos (auto) 0.1 (0-0.6) 10^3/ul Absolute Basos (auto) 0 (0-0.2) 10^3/ul Absolute Nucleated RBC 0 10^3/ul Nucleated RBC % 0 INR (Anticoag Therapy) (0.77-1.02) Sodium 136 (135-145) mmol/L Potassium 3.2 L (3.5-5.0) mmol/L Chloride 96 L (101-111) mmol/L Carbon Dioxide 31 (22-32) mmol/L Anion Gap 9 (2-11) mmol/L BUN 15 (6-24) mg/dL Creatinine 0.51 (0.51-0.95) mg/dL Est GFR ( Amer) 138.7 (>60) Est GFR (Non-Af Amer) 114.6 (>60) BUN/Creatinine Ratio 29.4 H (8-20) Glucose 118 H (70-100) mg/dL Lactic Acid 1.0 (0.5-2.0) mmol/L Calcium 9.9 (8.6-10.3) mg/dL Total Bilirubin 1.00 (0.2-1.0) mg/dL AST 16 (13-39) U/L ALT 8 (7-52) U/L Alkaline Phosphatase 83 (34-104) U/L Troponin I 0.01 (<0.04) ng/mL Total Protein 7.3 (6.4-8.9) g/dL Albumin 3.8 (3.2-5.2) g/dL Globulin 3.5 (2-4) g/dL Albumin/Globulin Ratio 1.1 (1-3) TSH 0.52 (0.34-5.60) mcIU/mL Urine Color Urine Appearance Urine pH (5-9) Ur Specific [place] (1.010-1.030) Urine Protein (Negative) Urine Ketones (Negative) Urine Blood (Negative) Urine Nitrate (Negative) Urine Bilirubin (Negative) Urine Urobilinogen (Negative) Ur Leukocyte Esterase (Negative) Urine WBC (Auto) (Absent) Urine RBC (Auto) (Absent) Urine Bacteria (Absent) Urine Glucose (Negative) Urine Ascorbic Acid (Negative) 03/26/18 03/26/18 Range/Units 00:05 00:33 WBC (3.5-10.8) 10^3/ul RBC (4.00-5.40) 10^6/ul Hgb (12.0-16.0) g/dl Hct (35-47) % MCV (80-97) fL MCH (27-31) pg MCHC (31-36) g/dl RDW (10.5-15) % Plt Count (150-450) 10^3/ul MPV (7.4-10.4) um3 Neut % (Auto) (38-83) % Lymph % (Auto) (25-47) % [place] % (Auto) (0-7) % Eos % (Auto) (0-6) % Baso % (Auto) (0-2) % Absolute Neuts (auto) (1.5-7.7) 10^3/ul Absolute Lymphs (auto) (1.0-4.8) 10^3/ul Absolute Monos (auto) (0-0.8) 10^3/ul Absolute Eos (auto) (0-0.6) 10^3/ul Absolute Basos (auto) (0-0.2) 10^3/ul Absolute Nucleated RBC 10^3/ul Nucleated RBC % INR (Anticoag Therapy) 1.04 H (0.77-1.02) Sodium (135-145) mmol/L Potassium (3.5-5.0) mmol/L Chloride (101-111) mmol/L Carbon Dioxide (22-32) mmol/L Anion Gap (2-11) mmol/L BUN (6-24) mg/dL Creatinine (0.51-0.95) mg/dL Est GFR ( Amer) (>60) Est GFR (Non-Af Amer) (>60) BUN/Creatinine Ratio (8-20) Glucose (70-100) mg/dL Lactic Acid (0.5-2.0) mmol/L Calcium (8.6-10.3) mg/dL Total Bilirubin (0.2-1.0) mg/dL AST (13-39) U/L ALT (7-52) U/L Alkaline Phosphatase (34-104) U/L Troponin I (<0.04) ng/mL Total Protein (6.4-8.9) g/dL Albumin (3.2-5.2) g/dL Globulin (2-4) g/dL Albumin/Globulin Ratio (1-3) TSH (0.34-5.60) mcIU/mL Urine Color Valorie Urine Appearance Turbid Urine pH 5.0 (5-9) Ur Specific [place] 1.016 (1.010-1.030) Urine Protein 2+(100 mg/dl) A (Negative) Urine Ketones Negative (Negative) Urine Blood 1+ A (Negative) Urine Nitrate Positive A (Negative) Urine Bilirubin Negative (Negative) Urine Urobilinogen Positive A (Negative) Ur Leukocyte Esterase 2+ A (Negative) Urine WBC (Auto) 3+(>20/hpf) A (Absent) Urine RBC (Auto) 3+(>10/hpf) A (Absent) Urine Bacteria Absent (Absent) Urine Glucose Negative (Negative) Urine Ascorbic Acid * A (Negative) ECG, personally reviewed: NSR rate 88, lateral T-wave flattening w/ mild ST depression CXR, personally reviewed: large hiatal hernia, no acute process CT brain WO, personally reviewed: FINDINGS: Involutional changes with moderate ventriculomegaly. Chronic microvascular changes in the cerebral white matter. No hemorrhage. No mass. No obvious infarct. Osseous structures are intact. Impression: 83F HX HTN, PAOD, hypothyroidism presenting with confusion/AMS 2nd UTI DIAGNOSIS & PLAN Primary confusion/AMS 2nd UTI : IV ABX : IVFs : blood & urine CXs : supportive care Secondary HTN : review meds once reconciled PAOD : heart healthy diet hypothyroidism : continue levothyroxine once reconciled dementia : will require safety monitor Admission Rational: observation for initiation of ABX DVTp: heparin SQ Code Status: DNR HCP: daughter, Yelena
[2018-03-26] MEDS ORDERED: Acetaminophen TAB* 325 MG PO PRN (05:10)
[2018-03-26] MEDS ORDERED: Ondansetron ODT TAB* 4 MG PO PRN (05:10)
[2018-03-26] MEDS ORDERED: Potassium Chlor TAB* 20 MEQ TAB.ER PO ONE ×2 (05:12→09:05)
--- NOTE | 2018-03-26 06:02 | ED ---
Austin Hartley Tiffany, scribed for Alex Land MD on 03/25/18 at 2328 . Altered Mental Status - HPI Summary HPI Summary: 83 year [facility] by children complains of altered mental status since five days ago, worse since yesterday evening. Symptoms aggravated by nothing. Symptoms alleviated by nothing. Patient denies abdominal pain, diarrhea, chest pain, shortness of breath, cough. Patient reportedly combative with EMS. Hx behavioral changes secondary to infection one year ago. Hx dementia. Daughter delivers HPI. Daughter reports decreased appetite. States that patient has not been herself recently, wouldn't allow assisted living to obtain urinalysis. - History Of Current Complaint Chief Complaint: EDAltMentalStatus Stated Complaint: AMS Time Seen by Provider: 03/25/18 23:17 Hx Obtained From: Patient, Family/Bad Cloth Checker - daughter Onset/Duration: Still Present Timing: Constant Aggravating Factor(s): Nothing Alleviating Factor(s): Nothing - Allergies/Home Medications Allergies/Adverse Reactions: Allergies Allergy/AdvReac Type Severity Reaction Status Date / Time Penicillins Allergy Anaphylatic Verified 03/25/18 23:01 Shock PMH/Surg Hx/FS Hx/Imm Hx Previously Healthy: No Endocrine/Hematology History: Reports: Hx Thyroid Disease - hypo Denies: Hx Diabetes Cardiovascular History: Reports: Hx Hypertension, Other Cardiovascular Problems/ Disorders - peripheral vascular disease Denies: Hx Pacemaker/ICD Respiratory History: Denies: Hx Asthma, Hx Chronic Obstructive Pulmonary Disease (COPD) GI History: Denies: Hx Ulcer History: Denies: Hx Renal Disease Musculoskeletal History: Reports: Hx Arthritis Sensory History: Reports: Hx Contacts or Glasses Denies: Hx Hearing Aid Opthamlomology History: Reports: Hx Contacts or Glasses Neurological History: Reports: Hx Dementia, Hx Transient Ischemic Attacks (TIA) Psychiatric History: Reports: Hx Depression Denies: Hx Panic Disorder - Cancer History Hx Chemotherapy: No Hx Radiation Therapy: No - Surgical History Surgery Procedure, Year, and Place: R knee surgery 2006. Multiple back surgeries. RT HIP AND RT KNEE REPLACEMENT. Appendectomy. T&A. 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 Negative: Abdominal Pain, Diarrhea Neurological: Other - altered mental status All Other Systems Reviewed And Are Negative: Yes Physical Exam - Summary Physical Exam Summary: Appearance: Well appearing, no pain distress Skin: warm, dry, reflects adequate perfusion. Abrasion of inside of left lower leg. Head/face: normal Eyes: EOMI, LESLIE ENT: normal Neck: supple, non-tender Respiratory: CTA, breath sounds present Cardiovascular: RRR, pulses symmetrical Abdomen: She is showing aggressive behaviors, so doesn't permit abdominal exam. Bowel Sounds: present Musculoskeletal: normal, strength/ROM intact Neuro: normal, sensory motor intact, A&Ox3 Triage Information Reviewed: Yes Vital Signs On Initial Exam: Initial Vitals Temp Pulse Resp BP Pulse Ox 99.3 F 88 18 153/100 99 03/25/18 22:58 03/25/18 22:58 03/25/18 22:58 03/25/18 22:58 03/25/18 22:58 Vital Signs Reviewed: Yes Diagnostics - Vital Signs Vital Signs Temp Pulse Resp BP Pulse Ox 03/25/18 22:58 99.3 F 88 18 153/100 99 - Laboratory Lab Results: Lab Results 03/26/18 03/26/18 03/26/18 Range/Units 00:05 00:05 00:05 WBC 8.7 (3.5-10.8) 10^3/ul RBC 5.37 (4.00-5.40) 10^6/ul Hgb 14.1 (12.0-16.0) g/dl Hct 42 (35-47) % MCV 79 L (80-97) fL MCH 26 L (27-31) pg MCHC 33 (31-36) g/dl RDW 15 (10.5-15) % Plt Count 262 (150-450) 10^3/ul MPV 7.5 (7.4-10.4) um3 Neut % (Auto) 66.7 (38-83) % Lymph % (Auto) 18.8 L (25-47) % [place] % (Auto) 13.2 H (0-7) % Eos % (Auto) 1.0 (0-6) % Baso % (Auto) 0.3 (0-2) % Absolute Neuts (auto) 5.8 (1.5-7.7) 10^3/ul Absolute Lymphs (auto) 1.6 (1.0-4.8) 10^3/ul Absolute Monos (auto) 1.2 H (0-0.8) 10^3/ul Absolute Eos (auto) 0.1 (0-0.6) 10^3/ul Absolute Basos (auto) 0 (0-0.2) 10^3/ul Absolute Nucleated RBC 0 10^3/ul Nucleated RBC % 0 INR (Anticoag Therapy) (0.77-1.02) Sodium 136 (135-145) mmol/L Potassium 3.2 L (3.5-5.0) mmol/L Chloride 96 L (101-111) mmol/L Carbon Dioxide 31 (22-32) mmol/L Anion Gap 9 (2-11) mmol/L BUN 15 (6-24) mg/dL Creatinine 0.51 (0.51-0.95) mg/dL Est GFR ( Amer) 138.7 (>60) Est GFR (Non-Af Amer) 114.6 (>60) BUN/Creatinine Ratio 29.4 H (8-20) Glucose 118 H (70-100) mg/dL Lactic Acid 1.0 (0.5-2.0) mmol/L Calcium 9.9 (8.6-10.3) mg/dL Total Bilirubin 1.00 (0.2-1.0) mg/dL AST 16 (13-39) U/L ALT 8 (7-52) U/L Alkaline Phosphatase 83 (34-104) U/L Troponin I 0.01 (<0.04) ng/mL Total Protein 7.3 (6.4-8.9) g/dL Albumin 3.8 (3.2-5.2) g/dL Globulin 3.5 (2-4) g/dL Albumin/Globulin Ratio 1.1 (1-3) TSH 0.52 (0.34-5.60) mcIU/mL Urine Color Urine Appearance Urine pH (5-9) Ur Specific [place] (1.010-1.030) Urine Protein (Negative) Urine Ketones (Negative) Urine Blood (Negative) Urine Nitrate (Negative) Urine Bilirubin (Negative) Urine Urobilinogen (Negative) Ur Leukocyte Esterase (Negative) Urine WBC (Auto) (Absent) Urine RBC (Auto) (Absent) Urine Bacteria (Absent) Urine Glucose (Negative) Urine Ascorbic Acid (Negative) 03/26/18 03/26/18 Range/Units 00:05 00:33 WBC (3.5-10.8) 10^3/ul RBC (4.00-5.40) 10^6/ul Hgb (12.0-16.0) g/dl Hct (35-47) % MCV (80-97) fL MCH (27-31) pg MCHC (31-36) g/dl RDW (10.5-15) % Plt Count (150-450) 10^3/ul MPV (7.4-10.4) um3 Neut % (Auto) (38-83) % Lymph % (Auto) (25-47) % [place] % (Auto) (0-7) % Eos % (Auto) (0-6) % Baso % (Auto) (0-2) % Absolute Neuts (auto) (1.5-7.7) 10^3/ul Absolute Lymphs (auto) (1.0-4.8) 10^3/ul Absolute Monos (auto) (0-0.8) 10^3/ul Absolute Eos (auto) (0-0.6) 10^3/ul Absolute Basos (auto) (0-0.2) 10^3/ul Absolute Nucleated RBC 10^3/ul Nucleated RBC % INR (Anticoag Therapy) 1.04 H (0.77-1.02) Sodium (135-145) mmol/L Potassium (3.5-5.0) mmol/L Chloride (101-111) mmol/L Carbon Dioxide (22-32) mmol/L Anion Gap (2-11) mmol/L BUN (6-24) mg/dL Creatinine (0.51-0.95) mg/dL Est GFR ( Amer) (>60) Est GFR (Non-Af Amer) (>60) BUN/Creatinine Ratio (8-20) Glucose (70-100) mg/dL Lactic Acid (0.5-2.0) mmol/L Calcium (8.6-10.3) mg/dL Total Bilirubin (0.2-1.0) mg/dL AST (13-39) U/L ALT (7-52) U/L Alkaline Phosphatase (34-104) U/L Troponin I (<0.04) ng/mL Total Protein (6.4-8.9) g/dL Albumin (3.2-5.2) g/dL Globulin (2-4) g/dL Albumin/Globulin Ratio (1-3) TSH (0.34-5.60) mcIU/mL Urine Color Valorie Urine Appearance Turbid Urine pH 5.0 (5-9) Ur Specific [place] 1.016 (1.010-1.030) Urine Protein 2+(100 mg/dl) A (Negative) Urine Ketones Negative (Negative) Urine Blood 1+ A (Negative) Urine Nitrate Positive A (Negative) Urine Bilirubin Negative (Negative) Urine Urobilinogen Positive A (Negative) Ur Leukocyte Esterase 2+ A (Negative) Urine WBC (Auto) 3+(>20/hpf) A (Absent) Urine RBC (Auto) 3+(>10/hpf) A (Absent) Urine Bacteria Absent (Absent) Urine Glucose Negative (Negative) Urine Ascorbic Acid * A (Negative) Result Diagrams: 03/26/18 00:05 03/26/18 00:05 Lab Statement: Any lab studies that have been ordered have been reviewed, and results considered in the medical decision making process. - Radiology CXR Radiology Interpretation Completed By: ED Physician - Hiatal hernia. No acute findings. Pending official report. - CT Brain CT Interpretation Completed By: Radiologist - Involutional changes with moderate ventriculomegaly. Chronic microvascular changes in the cerebral white matter. No hemorrhage. No mass. No obvious infarct. Osseous structures are intact. ED physician has reviewed this report. - EKG 0038 Cardiac Rate: NL - 88 bpm EKG Rhythm: Sinus Rhythm EKG Interpretation: Left axis deviation. Poor R wave progression. Nonspecific ST. Re-Evaluation - Re-Evaluation First Eval Change: Improved - Patient has been calm and resting comfortably Altered Mental Statu Course/Dx - Course Course Of Treatment: Patient with a history of dementia with recent personality change. She is much more aggressive now. This happened previously when she had urinary tract infection. Today her urine is grossly infected. She was given Levaquin given that she had previously had anaphylaxis to penicillins. Hospitalist was contacted and will admit the patient. - Diagnoses Provider Diagnoses: Delirium, Acute UTI (urinary tract infection), Dementia with behavioral disturbance - Provider Notifications Discussed Care Of Patient With: Erasmo Thompson Time Discussed With Above Provider: 01:35 Instructed by Provider To: Other - Dr. Thompson, hospitalist, agrees to admit patient Discharge - Sign-Out/Discharge Documenting (check all that apply): Discharge/Admit/Transfer - ADMIT - Discharge Plan Condition: Fair Disposition: ADMITTED TO [facility] - Billing Disposition and Condition Condition: FAIR Disposition: Admitted to [facility] The documentation as recorded by the Austin hastings Tiffany accurately reflects the service I personally performed and the decisions made by , Alex Land MD.
--- NOTE | 2018-03-26 06:22 | RAD ---
INDICATION: Altered mental status COMPARISON: Measures and comparison chest x-ray March 26, 2017 TECHNIQUE: Single AP portable view of the chest was obtained. FINDINGS: Image quality is compromised due to the relative inferiority of a portable chest x-ray. The heart and mediastinum exhibit normal size and contour. There is coarse calcification overlying the arch of the aorta. The lungs are grossly clear. There is no evidence of a large pleural effusion. There appears to be a large hiatal hernia with gastric air overlying the low midline thorax. Visualized bones are normal for the patient's age. IMPRESSION: No radiographic evidence for acute cardiopulmonary abnormality on this portable chest x-ray.
--- NOTE | 2018-03-26 06:23 | RAD ---
INDICATION: Altered mental status in a patient with dementia COMPARISON: Most recent brain CT is dated March 26, 2017 TECHNIQUE: Contiguous axial sections of the brain were obtained from the skull base to the vertex without contrast. FINDINGS: The ventricles, cisterns and sulci exhibit symmetrical involutional changes. There is moderate to severe periventricular and subcortical white matter hypoattenuation most consistent with chronic microvascular disease that is similar in appearance to the previous CT of the brain. The rosa-white matter differentiation is adequately maintained and there is no sulcal effacement. No significant focal abnormality or mass effect is present. There is no evidence for intracranial hemorrhage. There is coarse atherosclerotic calcification at the vertebral arteries and bilateral petrous carotid arteries. No significant focal osseous abnormality is present. The visualized portion of the paranasal sinuses appear clear. The mastoid air cells are well aerated bilaterally. IMPRESSION: Stable chronic involutional changes and microvascular disease as described above without CT apparent acute intracranial abnormality.
[2018-03-26 06:27] LABS: ABS Basophils 0.1 10^3/ul (0-0.2); ABS Eosinophils 0 10^3/ul (0-0.6); ABS Lymphocytes 1.1 10^3/ul (1.0-4.8); ABS Neutrophils 6.3 10^3/ul (1.5-7.7); ABS Nucleated RBC 0 10^3/ul; Eosinophil % 0.5 % (0-6); Hematocrit 41 % (35-47); Hemoglobin 13.4 g/dl (12.0-16.0); Lymphocyte % 13.1 % (25-47); Mean Corpuscular HGB Conc 33 g/dl (31-36); Mean Corpuscular Hemoglobin 26 pg (27-31); Mean Corpuscular Volume 80 fL (80-97); Mean Platelet Volume 7.3 um3 (7.4-10.4); Nucleated Red Blood Cells % 0; Platelet Count 230 10^3/ul (150-450); Red Blood Count 5.16 10^6/ul (4.00-5.40); Red Cell Distribution Width 15 % (10.5-15); White Blood Count 8.5 10^3/ul (3.5-10.8)
[2018-03-26 06:35] LABS: INR 1.09 (0.77-1.02)
[2018-03-26 06:51] LABS: EGFR Non-African American 125.9 (>60)
[2018-03-26] MEDS: NS 0.9% 1000 ML* 1,000 ML IV SCH (07:25)
[2018-03-26] MEDS: Omeprazole CAP* 20 MG PO SCH (07:25)
[2018-03-26] MEDS: Docusate CAP* 100 MG PO SCH ×2 (09:34→22:38)
--- NOTE | 2018-03-26 15:53 | PN ---
Subjective Date of Service: 03/26/18 Interval History: Pt seen and examined. Meds and labs reviewed. ROS: Denied RANGEL/dizziness, F/C, N/V, CP, SOB, increased cough, sputum production , abd pain, diarrhea, constipation, dysuria, myalgias, arthralgias, throat pain , and new skin lesions. The rest of the 14 point ROS are unremarkable. PHYSICAL EXAM: GEN APPEARANCE: Awake, not in acute distress HEENT: NC/AT, PERRLA, moist oral mucosa, (-) throat erythema NECK: Soft, supple, (-) cervical LAD, (-)JVD HEART: S1S2 WNL, RRR, No MRG CHEST: CTA, BL, GAE, No W/R/R ABD: Soft, ND/NT, NABS 4x Q EXT: No C/C/E SKIN: Warm to touch PSYCH: No active psychosis, hallucinations, depression, SI/HI Objective Active Medications: Acetaminophen (Tylenol Tab*) 650 mg PO Q6H PRN PRN Reason: FEVER/PAIN Docusate Sodium (Colace Cap*) 200 mg PO BID [facility] Last Admin: 03/26/18 09:34 Dose: 200 mg Heparin Sodium (Porcine) (Heparin Vial(*)) 5,000 units SUBCUT Q12HR [facility] Sodium Chloride (Ns 0.9% 1000 Ml*) 1,000 mls @ 50 mls/hr IV PER RATE [facility] Last Admin: 03/26/18 07:25 Dose: 50 mls/hr Levofloxacin/Dextrose (Levaquin 500 Mg Ivpremix(*)) 500 mg in 100 mls @ 100 mls /hr IVPB Q48H [facility] Melatonin (Melatonin) 3 mg PO BEDTIME PRN; Protocol PRN Reason: Sleep Omeprazole (Prilosec Cap*) 20 mg PO DAILY@0600 [facility] Last Admin: 03/26/18 07:25 Dose: 20 mg Ondansetron HCl (Zofran Odt Tab*) 4 mg PO Q6H PRN PRN Reason: n/v Vital Signs - 8 hr 03/26/18 11:08 Temperature 97.6 F Pulse Rate 94 Respiratory 16 Rate Blood Pressure 134/93 (mmHg) O2 Sat by Pulse 96 Oximetry Oxygen Devices in Use Now: None Result Diagrams: 03/26/18 06:18 03/26/18 06:18 Additional Lab and Data: Lab Results 03/26/18 03/26/18 03/26/18 Range/Units 00:05 00:05 00:05 WBC 8.7 (3.5-10.8) 10^3/ul RBC 5.37 (4.00-5.40) 10^6/ul Hgb 14.1 (12.0-16.0) g/dl Hct 42 (35-47) % MCV 79 L (80-97) fL MCH 26 L (27-31) pg MCHC 33 (31-36) g/dl RDW 15 (10.5-15) % Plt Count 262 (150-450) 10^3/ul MPV 7.5 (7.4-10.4) um3 Neut % (Auto) 66.7 (38-83) % Lymph % (Auto) 18.8 L (25-47) % [place] % (Auto) 13.2 H (0-7) % Eos % (Auto) 1.0 (0-6) % Baso % (Auto) 0.3 (0-2) % Absolute Neuts (auto) 5.8 (1.5-7.7) 10^3/ul Absolute Lymphs (auto) 1.6 (1.0-4.8) 10^3/ul Absolute Monos (auto) 1.2 H (0-0.8) 10^3/ul Absolute Eos (auto) 0.1 (0-0.6) 10^3/ul Absolute Basos (auto) 0 (0-0.2) 10^3/ul Absolute Nucleated RBC 0 10^3/ul Nucleated RBC % 0 INR (Anticoag Therapy) (0.77-1.02) Sodium 136 (135-145) mmol/L Potassium 3.2 L (3.5-5.0) mmol/L Chloride 96 L (101-111) mmol/L Carbon Dioxide 31 (22-32) mmol/L Anion Gap 9 (2-11) mmol/L BUN 15 (6-24) mg/dL Creatinine 0.51 (0.51-0.95) mg/dL Est GFR ( Amer) 138.7 (>60) Est GFR (Non-Af Amer) 114.6 (>60) BUN/Creatinine Ratio 29.4 H (8-20) Glucose 118 H (70-100) mg/dL Lactic Acid 1.0 (0.5-2.0) mmol/L Calcium 9.9 (8.6-10.3) mg/dL Total Bilirubin 1.00 (0.2-1.0) mg/dL AST 16 (13-39) U/L ALT 8 (7-52) U/L Alkaline Phosphatase 83 (34-104) U/L Troponin I 0.01 (<0.04) ng/mL Total Protein 7.3 (6.4-8.9) g/dL Albumin 3.8 (3.2-5.2) g/dL Globulin 3.5 (2-4) g/dL Albumin/Globulin Ratio 1.1 (1-3) TSH 0.52 (0.34-5.60) mcIU/mL Urine Color Urine Appearance Urine pH (5-9) Ur Specific [place] (1.010-1.030) Urine Protein (Negative) Urine Ketones (Negative) Urine Blood (Negative) Urine Nitrate (Negative) Urine Bilirubin (Negative) Urine Urobilinogen (Negative) Ur Leukocyte Esterase (Negative) Urine WBC (Auto) (Absent) Urine RBC (Auto) (Absent) Urine Bacteria (Absent) Urine Glucose (Negative) Urine Ascorbic Acid (Negative) 03/26/18 03/26/18 Range/Units 00:05 00:33 WBC (3.5-10.8) 10^3/ul RBC (4.00-5.40) 10^6/ul Hgb (12.0-16.0) g/dl Hct (35-47) % MCV (80-97) fL MCH (27-31) pg MCHC (31-36) g/dl RDW (10.5-15) % Plt Count (150-450) 10^3/ul MPV (7.4-10.4) um3 Neut % (Auto) (38-83) % Lymph % (Auto) (25-47) % [place] % (Auto) (0-7) % Eos % (Auto) (0-6) % Baso % (Auto) (0-2) % Absolute Neuts (auto) (1.5-7.7) 10^3/ul Absolute Lymphs (auto) (1.0-4.8) 10^3/ul Absolute Monos (auto) (0-0.8) 10^3/ul Absolute Eos (auto) (0-0.6) 10^3/ul Absolute Basos (auto) (0-0.2) 10^3/ul Absolute Nucleated RBC 10^3/ul Nucleated RBC % INR (Anticoag Therapy) 1.04 H (0.77-1.02) Sodium (135-145) mmol/L Potassium (3.5-5.0) mmol/L Chloride (101-111) mmol/L Carbon Dioxide (22-32) mmol/L Anion Gap (2-11) mmol/L BUN (6-24) mg/dL Creatinine (0.51-0.95) mg/dL Est GFR ( Amer) (>60) Est GFR (Non-Af Amer) (>60) BUN/Creatinine Ratio (8-20) Glucose (70-100) mg/dL Lactic Acid (0.5-2.0) mmol/L Calcium (8.6-10.3) mg/dL Total Bilirubin (0.2-1.0) mg/dL AST (13-39) U/L ALT (7-52) U/L Alkaline Phosphatase (34-104) U/L Troponin I (<0.04) ng/mL Total Protein (6.4-8.9) g/dL Albumin (3.2-5.2) g/dL Globulin (2-4) g/dL Albumin/Globulin Ratio (1-3) TSH (0.34-5.60) mcIU/mL Urine Color Valorie Urine Appearance Turbid Urine pH 5.0 (5-9) Ur Specific [place] 1.016 (1.010-1.030) Urine Protein 2+(100 mg/dl) A (Negative) Urine Ketones Negative (Negative) Urine Blood 1+ A (Negative) Urine Nitrate Positive A (Negative) Urine Bilirubin Negative (Negative) Urine Urobilinogen Positive A (Negative) Ur Leukocyte Esterase 2+ A (Negative) Urine WBC (Auto) 3+(>20/hpf) A (Absent) Urine RBC (Auto) 3+(>10/hpf) A (Absent) Urine Bacteria Absent (Absent) Urine Glucose Negative (Negative) Urine Ascorbic Acid * A (Negative) Assess/Plan/Problems-Billing Assessment: - Patient Problems (1) Dementia with behavioral disturbance Current Visit: Yes Status: Acute Code(s): F03.91 - UNSPECIFIED DEMENTIA WITH BEHAVIORAL DISTURBANCE SNOMED Code(s): 6192477545911 Comment: -Likely exacerbated by UTI -Continue Levaquin -Continue to follow cultures -Consider Gabapentin and/or Depakote if behaviors worsen (2) Hypothyroidism Current Visit: Yes Status: Acute Code(s): E03.9 - HYPOTHYROIDISM, UNSPECIFIED SNOMED Code(s): 44939408 Comment: -Continue Synthroid -TSH is normal (3) Hypokalemia Current Visit: No Status: Acute Code(s): E87.6 - HYPOKALEMIA SNOMED Code(s ): 54476913 Comment: -Corrected -Continue watchful waiting (4) DVT prophylaxis Current Visit: No Status: Acute Code(s): HPA8413 - SNOMED Code(s): 863159728 Comment: -Change frequency of SQ Heparin to q12H Status and Disposition: -Will continue to wait for C&S data -D/C back to [place] on Thursday
[2018-03-26] MEDS: Melatonin 3 MG TAB PO PRN (22:36)
[2018-03-26] MEDS: Heparin VIAL(*) 5000 UNITS/ML VIAL (FIVE THOUSAND) SUBCUT SCH (23:08)
[2018-03-27] MEDS: NS 0.9% 1000 ML* 1,000 ML IV SCH ×2 (03:40→23:52)
[2018-03-27] MEDS: Omeprazole CAP* 20 MG PO SCH (05:24)
[2018-03-27] MEDS ORDERED: Heparin VIAL(*) 5000 UNITS/ML VIAL (FIVE THOUSAND) SUBCUT SCH (06:00)
[2018-03-27 06:29] LABS: ABS Basophils 0 10^3/ul (0-0.2); ABS Eosinophils 0.1 10^3/ul (0-0.6); ABS Lymphocytes 1.4 10^3/ul (1.0-4.8); ABS Monocytes 1.1 10^3/ul (0-0.8); ABS Neutrophils 5.4 10^3/ul (1.5-7.7); ABS Nucleated RBC 0 10^3/ul; Eosinophil % 1.2 % (0-6); Hematocrit 34 % (35-47); Hemoglobin 11.3 g/dl (12.0-16.0); Lymphocyte % 17.5 % (25-47); Mean Corpuscular HGB Conc 33 g/dl (31-36); Mean Corpuscular Hemoglobin 26 pg (27-31); Mean Corpuscular Volume 80 fL (80-97); Mean Platelet Volume 7.4 um3 (7.4-10.4); Nucleated Red Blood Cells % 0; Platelet Count 209 10^3/ul (150-450); Red Blood Count 4.32 10^6/ul (4.00-5.40); Red Cell Distribution Width 15 % (10.5-15)
[2018-03-27] MEDS ORDERED: Potassium Chlor TAB* 20 MEQ TAB.ER PO STA (09:52)
[2018-03-27] MEDS: Docusate CAP* 100 MG PO SCH ×4 (10:14→20:58)
[2018-03-27] MEDS: Heparin VIAL(*) 5000 UNITS/ML VIAL (FIVE THOUSAND) SUBCUT SCH ×2 (10:15→20:59)
[2018-03-27] MEDS: Gabapentin CAP(*) 100 MG PO SCH ×2 (13:00→20:56)
[2018-03-27] MEDS: RIVASTIGMINE 9.5 MG TRANSDERM SCH ×3 (13:01→14:17)
--- NOTE | 2018-03-27 16:02 | PN ---
Subjective Date of Service: 03/27/18 Interval History: Pt seen and examined. Meds and labs reviewed. RN reported earlier that pt refuses Colace and thinks she has had BM yesterday, when her records does not reveal this. She also refuses Gabapentin and Exelon patch ordered earlier to address her dementia with behaviors. ROS: Denied RANGEL/dizziness, F/C, N/V, CP, SOB, increased cough, sputum production , abd pain, diarrhea, constipation, dysuria, myalgias, arthralgias, throat pain , and new skin lesions. The rest of the 14 point ROS are unremarkable. PHYSICAL EXAM: GEN APPEARANCE: Awake, not in acute distress HEENT: NC/AT, PERRLA, moist oral mucosa, (-) throat erythema NECK: Soft, supple, (-) cervical LAD, (-)JVD HEART: S1S2 WNL, RRR, No MRG CHEST: CTA, BL, GAE, No W/R/R ABD: Soft, ND/NT, NABS 4x Q EXT: No C/C/E SKIN: Warm to touch PSYCH: No active psychosis, hallucinations, depression, SI/HI Objective Active Medications: Acetaminophen (Tylenol Tab*) 650 mg PO Q6H PRN PRN Reason: FEVER/PAIN Docusate Sodium (Colace Cap*) 200 mg PO BID [facility] Last Admin: 03/27/18 10:23 Dose: 100 mg Gabapentin (Neurontin Cap(*)) 100 mg PO TID [facility] Last Admin: 03/27/18 13:00 Dose: 100 mg Heparin Sodium (Porcine) (Heparin Vial(*)) 5,000 units SUBCUT Q12HR [facility] Last Admin: 03/27/18 10:15 Dose: Not Given Sodium Chloride (Ns 0.9% 1000 Ml*) 1,000 mls @ 50 mls/hr IV PER RATE [facility] Last Admin: 03/27/18 03:40 Dose: 50 mls/hr Levofloxacin/Dextrose (Levaquin 500 Mg Ivpremix(*)) 500 mg in 100 mls @ 100 mls /hr IVPB Q48H [facility] Melatonin (Melatonin) 3 mg PO BEDTIME PRN; Protocol PRN Reason: Sleep Last Admin: 03/26/18 22:36 Dose: 3 mg Omeprazole (Prilosec Cap*) 20 mg PO DAILY@0600 [facility] Last Admin: 03/27/18 05:24 Dose: 20 mg Ondansetron HCl (Zofran Odt Tab*) 4 mg PO Q6H PRN PRN Reason: n/v Rivastigmine (Exelon Patch(Nf)) 1 patch TRANSDERM DAILY [facility] Last Admin: 03/27/18 14:17 Dose: 1 patch Vital Signs - 8 hr 03/27/18 03/27/18 03/27/18 08:00 11:45 13:00 Temperature 98.1 F Pulse Rate 72 Respiratory 18 18 16 Rate Blood Pressure 126/76 (mmHg) O2 Sat by Pulse 98 Oximetry 03/27/18 15:35 Temperature 97.7 F Pulse Rate 71 Respiratory 17 Rate Blood Pressure 139/75 (mmHg) O2 Sat by Pulse 98 Oximetry Oxygen Devices in Use Now: None Result Diagrams: 03/27/18 06:13 03/27/18 06:13 Additional Lab and Data: Lab Results 03/26/18 03/26/18 03/26/18 Range/Units 00:05 00:05 00:05 WBC 8.7 (3.5-10.8) 10^3/ul RBC 5.37 (4.00-5.40) 10^6/ul Hgb 14.1 (12.0-16.0) g/dl Hct 42 (35-47) % MCV 79 L (80-97) fL MCH 26 L (27-31) pg MCHC 33 (31-36) g/dl RDW 15 (10.5-15) % Plt Count 262 (150-450) 10^3/ul MPV 7.5 (7.4-10.4) um3 Neut % (Auto) 66.7 (38-83) % Lymph % (Auto) 18.8 L (25-47) % [place] % (Auto) 13.2 H (0-7) % Eos % (Auto) 1.0 (0-6) % Baso % (Auto) 0.3 (0-2) % Absolute Neuts (auto) 5.8 (1.5-7.7) 10^3/ul Absolute Lymphs (auto) 1.6 (1.0-4.8) 10^3/ul Absolute Monos (auto) 1.2 H (0-0.8) 10^3/ul Absolute Eos (auto) 0.1 (0-0.6) 10^3/ul Absolute Basos (auto) 0 (0-0.2) 10^3/ul Absolute Nucleated RBC 0 10^3/ul Nucleated RBC % 0 INR (Anticoag Therapy) (0.77-1.02) Sodium 136 (135-145) mmol/L Potassium 3.2 L (3.5-5.0) mmol/L Chloride 96 L (101-111) mmol/L Carbon Dioxide 31 (22-32) mmol/L Anion Gap 9 (2-11) mmol/L BUN 15 (6-24) mg/dL Creatinine 0.51 (0.51-0.95) mg/dL Est GFR ( Amer) 138.7 (>60) Est GFR (Non-Af Amer) 114.6 (>60) BUN/Creatinine Ratio 29.4 H (8-20) Glucose 118 H (70-100) mg/dL Lactic Acid 1.0 (0.5-2.0) mmol/L Calcium 9.9 (8.6-10.3) mg/dL Total Bilirubin 1.00 (0.2-1.0) mg/dL AST 16 (13-39) U/L ALT 8 (7-52) U/L Alkaline Phosphatase 83 (34-104) U/L Troponin I 0.01 (<0.04) ng/mL Total Protein 7.3 (6.4-8.9) g/dL Albumin 3.8 (3.2-5.2) g/dL Globulin 3.5 (2-4) g/dL Albumin/Globulin Ratio 1.1 (1-3) TSH 0.52 (0.34-5.60) mcIU/mL Urine Color Urine Appearance Urine pH (5-9) Ur Specific [place] (1.010-1.030) Urine Protein (Negative) Urine Ketones (Negative) Urine Blood (Negative) Urine Nitrate (Negative) Urine Bilirubin (Negative) Urine Urobilinogen (Negative) Ur Leukocyte Esterase (Negative) Urine WBC (Auto) (Absent) Urine RBC (Auto) (Absent) Urine Bacteria (Absent) Urine Glucose (Negative) Urine Ascorbic Acid (Negative) 03/26/18 03/26/18 Range/Units 00:05 00:33 WBC (3.5-10.8) 10^3/ul RBC (4.00-5.40) 10^6/ul Hgb (12.0-16.0) g/dl Hct (35-47) % MCV (80-97) fL MCH (27-31) pg MCHC (31-36) g/dl RDW (10.5-15) % Plt Count (150-450) 10^3/ul MPV (7.4-10.4) um3 Neut % (Auto) (38-83) % Lymph % (Auto) (25-47) % [place] % (Auto) (0-7) % Eos % (Auto) (0-6) % Baso % (Auto) (0-2) % Absolute Neuts (auto) (1.5-7.7) 10^3/ul Absolute Lymphs (auto) (1.0-4.8) 10^3/ul Absolute Monos (auto) (0-0.8) 10^3/ul Absolute Eos (auto) (0-0.6) 10^3/ul Absolute Basos (auto) (0-0.2) 10^3/ul Absolute Nucleated RBC 10^3/ul Nucleated RBC % INR (Anticoag Therapy) 1.04 H (0.77-1.02) Sodium (135-145) mmol/L Potassium (3.5-5.0) mmol/L Chloride (101-111) mmol/L Carbon Dioxide (22-32) mmol/L Anion Gap (2-11) mmol/L BUN (6-24) mg/dL Creatinine (0.51-0.95) mg/dL Est GFR ( Amer) (>60) Est GFR (Non-Af Amer) (>60) BUN/Creatinine Ratio (8-20) Glucose (70-100) mg/dL Lactic Acid (0.5-2.0) mmol/L Calcium (8.6-10.3) mg/dL Total Bilirubin (0.2-1.0) mg/dL AST (13-39) U/L ALT (7-52) U/L Alkaline Phosphatase (34-104) U/L Troponin I (<0.04) ng/mL Total Protein (6.4-8.9) g/dL Albumin (3.2-5.2) g/dL Globulin (2-4) g/dL Albumin/Globulin Ratio (1-3) TSH (0.34-5.60) mcIU/mL Urine Color Valorie Urine Appearance Turbid Urine pH 5.0 (5-9) Ur Specific [place] 1.016 (1.010-1.030) Urine Protein 2+(100 mg/dl) A (Negative) Urine Ketones Negative (Negative) Urine Blood 1+ A (Negative) Urine Nitrate Positive A (Negative) Urine Bilirubin Negative (Negative) Urine Urobilinogen Positive A (Negative) Ur Leukocyte Esterase 2+ A (Negative) Urine WBC (Auto) 3+(>20/hpf) A (Absent) Urine RBC (Auto) 3+(>10/hpf) A (Absent) Urine Bacteria Absent (Absent) Urine Glucose Negative (Negative) Urine Ascorbic Acid * A (Negative) Microbiology and Other Data: Microbiology 03/26/18 00:33 Urine Culture - Preliminary Urine Escherichia Coli 03/26/18 00:33 Aerobic Blood Culture - Preliminary Blood Venous No Growth Day 1 Anaerobic Blood Culture - Preliminary No Growth Day 1 03/26/18 00:05 Aerobic Blood Culture - Preliminary Blood Venous No Growth Day 1 Anaerobic Blood Culture - Preliminary No Growth Day 1 03/26/18 14:30 Nasal Screen MRSA (PCR) - Final Nasal Mrsa Not Detected Assess/Plan/Problems-Billing Assessment: - Patient Problems (1) Dementia with behavioral disturbance Current Visit: Yes Status: Acute Code(s): F03.91 - UNSPECIFIED DEMENTIA WITH BEHAVIORAL DISTURBANCE SNOMED Code(s): 0292283884416 Comment: -Likely exacerbated by UTI -Continue Levaquin, which unfortunately can contribute to confusion in the elderly and hospitalized pts; however, pt has history of anaphylaxis with penicillin and thus would avoid beta lactams -Continue to follow cultures -Ordered Gabapentin and Exelon patch; pt has history of dementia and will continue to re-direct (2) E. coli UTI Current Visit: Yes Status: Acute Code(s): N39.0 - URINARY TRACT INFECTION, SITE NOT SPECIFIED; B96.20 - UNSP ESCHERICHIA COLI THE CAUSE OF DISEASES CLASSD [facility] SNOMED Code(s): 370653197 Comment: -Continue Levaquin -Continue to follow Sensitivity data -Please see above discussion (3) Hypothyroidism Current Visit: Yes Status: Acute Code(s): E03.9 - HYPOTHYROIDISM, UNSPECIFIED SNOMED Code(s): 59017224 Comment: -Continue Synthroid -TSH is normal (4) Hypokalemia Current Visit: No Status: Acute Code(s): E87.6 - HYPOKALEMIA SNOMED Code(s ): 14576416 Comment: -Corrected -Continue watchful waiting (5) DVT prophylaxis Current Visit: No Status: Acute Code(s): BXU5294 - SNOMED Code(s): 164377354 Comment: -Change frequency of SQ Heparin to q12H Status and Disposition: -Will continue to wait for C&S data -D/C back to [place] on Thursday
[2018-03-27] MEDS: Melatonin 3 MG TAB PO PRN (20:55)
[2018-03-28] MEDS: Omeprazole CAP* 20 MG PO SCH (05:22)
[2018-03-28] MEDS ORDERED: Levofloxacin 750 MG IVPREMIX(* 750 MG/150 ML BAG IVPB SCH ×2 (06:00)
[2018-03-28] MEDS ORDERED: Levofloxacin 500 MG IVPREMIX(* 500 MG/100 ML BAG IVPB SCH (06:00)
[2018-03-28 07:51] LABS: EGFR Non-African American 122.9 (>60)
[2018-03-28 08:18] LABS: ABS Basophils 0 10^3/ul (0-0.2); ABS Eosinophils 0.2 10^3/ul (0-0.6); ABS Lymphocytes 1.6 10^3/ul (1.0-4.8); ABS Monocytes 0.9 10^3/ul (0-0.8); ABS Neutrophils 4.2 10^3/ul (1.5-7.7); ABS Nucleated RBC 0 10^3/ul; Eosinophil % 2.5 % (0-6); Hematocrit 37 % (35-47); Lymphocyte % 22.6 % (25-47); Mean Corpuscular HGB Conc 33 g/dl (31-36); Mean Corpuscular Hemoglobin 26 pg (27-31); Mean Corpuscular Volume 80 fL (80-97); Mean Platelet Volume 7.6 um3 (7.4-10.4); Nucleated Red Blood Cells % 0.1; Platelet Count 203 10^3/ul (150-450); Red Blood Count 4.61 10^6/ul (4.00-5.40); Red Cell Distribution Width 16 % (10.5-15); White Blood Count 6.9 10^3/ul (3.5-10.8)
[2018-03-28] MEDS: Docusate CAP* 100 MG PO SCH (08:26)
[2018-03-28] MEDS: Heparin VIAL(*) 5000 UNITS/ML VIAL (FIVE THOUSAND) SUBCUT SCH ×2 (08:26→20:35)
[2018-03-28] MEDS: Gabapentin CAP(*) 100 MG PO SCH ×3 (08:33→20:35)
[2018-03-28] MEDS: RIVASTIGMINE 9.5 MG TRANSDERM SCH (08:34)
[2018-03-28] MEDS: DOXYcycline IV* 100 MG in NS 0.9% 250 ML* 250 ML IVPB SCH ×2 (09:40→20:40)
[2018-03-28] MEDS ORDERED: Sodium Phosphate ADULT ENEMA* 118 ml bottle PR ONE (14:54)
--- NOTE | 2018-03-28 15:07 | PN ---
Subjective Date of Service: 03/28/18 Interval History: Pt seen and examined. Meds and labs reviewed. ROS: Pt complains of constipation, confirmed by RN. Denied RANGEL/dizziness, F/C, N/V, CP, SOB, increased cough, sputum production, abd pain, diarrhea, dysuria, myalgias, arthralgias, throat pain, and new skin lesions. The rest of the 14 point ROS are unremarkable. PHYSICAL EXAM: GEN APPEARANCE: Awake, not in acute distress HEENT: NC/AT, PERRLA, moist oral mucosa, (-) throat erythema NECK: Soft, supple, (-) cervical LAD, (-)JVD HEART: S1S2 WNL, RRR, No MRG CHEST: CTA, BL, GAE, No W/R/R ABD: Soft, ND/NT, NABS 4x Q EXT: No C/C/E SKIN: Warm to touch PSYCH: No active psychosis, hallucinations, depression, SI/HI Objective Active Medications: Acetaminophen (Tylenol Tab*) 650 mg PO Q6H PRN PRN Reason: FEVER/PAIN Docusate Sodium (Colace Cap*) 200 mg PO BID [facility] Last Admin: 03/28/18 08:26 Dose: Not Given Gabapentin (Neurontin Cap(*)) 100 mg PO TID [facility] Last Admin: 03/28/18 13:06 Dose: Not Given Heparin Sodium (Porcine) (Heparin Vial(*)) 5,000 units SUBCUT Q12HR [facility] Last Admin: 03/28/18 08:26 Dose: Not Given Doxycycline Hyclate 100 mg/ (Sodium Chloride) 250 mls @ 250 mls/hr IVPB Q12H [facility] Stop: 03/30/18 08:59 Last Admin: 03/28/18 09:40 Dose: 250 mls/hr Melatonin (Melatonin) 3 mg PO BEDTIME PRN; Protocol PRN Reason: Sleep Last Admin: 03/27/18 20:55 Dose: 3 mg Omeprazole (Prilosec Cap*) 20 mg PO DAILY@0600 [facility] Last Admin: 03/28/18 05:22 Dose: Not Given Ondansetron HCl (Zofran Odt Tab*) 4 mg PO Q6H PRN PRN Reason: n/v Rivastigmine (Exelon Patch(Nf)) 1 patch TRANSDERM DAILY [facility] Last Admin: 03/28/18 08:34 Dose: 1 patch Vital Signs - 8 hr 03/28/18 03/28/18 03/28/18 08:00 08:06 08:33 Temperature 97.7 F Pulse Rate 58 Respiratory 16 18 18 Rate Blood Pressure 129/66 (mmHg) O2 Sat by Pulse 97 Oximetry 03/28/18 03/28/18 10:04 12:26 Temperature 97.7 F Pulse Rate 64 Respiratory 16 19 Rate Blood Pressure 139/75 (mmHg) O2 Sat by Pulse 98 Oximetry Oxygen Devices in Use Now: None Result Diagrams: 03/28/18 07:09 03/28/18 07:09 Additional Lab and Data: Lab Results 03/26/18 03/26/18 03/26/18 Range/Units 00:05 00:05 00:05 WBC 8.7 (3.5-10.8) 10^3/ul RBC 5.37 (4.00-5.40) 10^6/ul Hgb 14.1 (12.0-16.0) g/dl Hct 42 (35-47) % MCV 79 L (80-97) fL MCH 26 L (27-31) pg MCHC 33 (31-36) g/dl RDW 15 (10.5-15) % Plt Count 262 (150-450) 10^3/ul MPV 7.5 (7.4-10.4) um3 Neut % (Auto) 66.7 (38-83) % Lymph % (Auto) 18.8 L (25-47) % [place] % (Auto) 13.2 H (0-7) % Eos % (Auto) 1.0 (0-6) % Baso % (Auto) 0.3 (0-2) % Absolute Neuts (auto) 5.8 (1.5-7.7) 10^3/ul Absolute Lymphs (auto) 1.6 (1.0-4.8) 10^3/ul Absolute Monos (auto) 1.2 H (0-0.8) 10^3/ul Absolute Eos (auto) 0.1 (0-0.6) 10^3/ul Absolute Basos (auto) 0 (0-0.2) 10^3/ul Absolute Nucleated RBC 0 10^3/ul Nucleated RBC % 0 INR (Anticoag Therapy) (0.77-1.02) Sodium 136 (135-145) mmol/L Potassium 3.2 L (3.5-5.0) mmol/L Chloride 96 L (101-111) mmol/L Carbon Dioxide 31 (22-32) mmol/L Anion Gap 9 (2-11) mmol/L BUN 15 (6-24) mg/dL Creatinine 0.51 (0.51-0.95) mg/dL Est GFR ( Amer) 138.7 (>60) Est GFR (Non-Af Amer) 114.6 (>60) BUN/Creatinine Ratio 29.4 H (8-20) Glucose 118 H (70-100) mg/dL Lactic Acid 1.0 (0.5-2.0) mmol/L Calcium 9.9 (8.6-10.3) mg/dL Total Bilirubin 1.00 (0.2-1.0) mg/dL AST 16 (13-39) U/L ALT 8 (7-52) U/L Alkaline Phosphatase 83 (34-104) U/L Troponin I 0.01 (<0.04) ng/mL Total Protein 7.3 (6.4-8.9) g/dL Albumin 3.8 (3.2-5.2) g/dL Globulin 3.5 (2-4) g/dL Albumin/Globulin Ratio 1.1 (1-3) TSH 0.52 (0.34-5.60) mcIU/mL Urine Color Urine Appearance Urine pH (5-9) Ur Specific [place] (1.010-1.030) Urine Protein (Negative) Urine Ketones (Negative) Urine Blood (Negative) Urine Nitrate (Negative) Urine Bilirubin (Negative) Urine Urobilinogen (Negative) Ur Leukocyte Esterase (Negative) Urine WBC (Auto) (Absent) Urine RBC (Auto) (Absent) Urine Bacteria (Absent) Urine Glucose (Negative) Urine Ascorbic Acid (Negative) 03/26/18 03/26/18 Range/Units 00:05 00:33 WBC (3.5-10.8) 10^3/ul RBC (4.00-5.40) 10^6/ul Hgb (12.0-16.0) g/dl Hct (35-47) % MCV (80-97) fL MCH (27-31) pg MCHC (31-36) g/dl RDW (10.5-15) % Plt Count (150-450) 10^3/ul MPV (7.4-10.4) um3 Neut % (Auto) (38-83) % Lymph % (Auto) (25-47) % [place] % (Auto) (0-7) % Eos % (Auto) (0-6) % Baso % (Auto) (0-2) % Absolute Neuts (auto) (1.5-7.7) 10^3/ul Absolute Lymphs (auto) (1.0-4.8) 10^3/ul Absolute Monos (auto) (0-0.8) 10^3/ul Absolute Eos (auto) (0-0.6) 10^3/ul Absolute Basos (auto) (0-0.2) 10^3/ul Absolute Nucleated RBC 10^3/ul Nucleated RBC % INR (Anticoag Therapy) 1.04 H (0.77-1.02) Sodium (135-145) mmol/L Potassium (3.5-5.0) mmol/L Chloride (101-111) mmol/L Carbon Dioxide (22-32) mmol/L Anion Gap (2-11) mmol/L BUN (6-24) mg/dL Creatinine (0.51-0.95) mg/dL Est GFR ( Amer) (>60) Est GFR (Non-Af Amer) (>60) BUN/Creatinine Ratio (8-20) Glucose (70-100) mg/dL Lactic Acid (0.5-2.0) mmol/L Calcium (8.6-10.3) mg/dL Total Bilirubin (0.2-1.0) mg/dL AST (13-39) U/L ALT (7-52) U/L Alkaline Phosphatase (34-104) U/L Troponin I (<0.04) ng/mL Total Protein (6.4-8.9) g/dL Albumin (3.2-5.2) g/dL Globulin (2-4) g/dL Albumin/Globulin Ratio (1-3) TSH (0.34-5.60) mcIU/mL Urine Color Valorie Urine Appearance Turbid Urine pH 5.0 (5-9) Ur Specific [place] 1.016 (1.010-1.030) Urine Protein 2+(100 mg/dl) A (Negative) Urine Ketones Negative (Negative) Urine Blood 1+ A (Negative) Urine Nitrate Positive A (Negative) Urine Bilirubin Negative (Negative) Urine Urobilinogen Positive A (Negative) Ur Leukocyte Esterase 2+ A (Negative) Urine WBC (Auto) 3+(>20/hpf) A (Absent) Urine RBC (Auto) 3+(>10/hpf) A (Absent) Urine Bacteria Absent (Absent) Urine Glucose Negative (Negative) Urine Ascorbic Acid * A (Negative) Microbiology and Other Data: Microbiology 03/26/18 00:33 Urine Culture - Preliminary Urine Escherichia Coli 03/26/18 00:33 Aerobic Blood Culture - Preliminary Blood Venous No Growth Day 1 Anaerobic Blood Culture - Preliminary No Growth Day 1 03/26/18 00:05 Aerobic Blood Culture - Preliminary Blood Venous No Growth Day 1 Anaerobic Blood Culture - Preliminary No Growth Day 1 03/26/18 14:30 Nasal Screen MRSA (PCR) - Final Nasal Mrsa Not Detected Assess/Plan/Problems-Billing Assessment: - Patient Problems (1) Dementia with behavioral disturbance Current Visit: Yes Status: Acute Code(s): F03.91 - UNSPECIFIED DEMENTIA WITH BEHAVIORAL DISTURBANCE SNOMED Code(s): 2563964754404 Comment: -Likely exacerbated by garcia-sensitive E. coli UTI -D/C Levaquin, which unfortunately can contribute to confusion in the elderly and hospitalized pts -Given sensitivity data, will place in Doxycycline---tomorrow should be last day of antibiotic therapy -Continue Gabapentin and Exelon patch; pt has history of dementia and will continue to re-direct (2) E. coli UTI Current Visit: Yes Status: Acute Code(s): N39.0 - URINARY TRACT INFECTION, SITE NOT SPECIFIED; B96.20 - UNSP ESCHERICHIA COLI THE CAUSE OF DISEASES [facility]SD [facility] SNOMED Code(s): 514376828 Comment: -Last day of Doxycycline tomorrow -Please see above discussion (3) Constipation Current Visit: Yes Status: Acute Code(s): K59.00 - CONSTIPATION, UNSPECIFIED SNOMED Code(s): 40177861 Comment: -D/C Colace -Will place pt on Senna-Plus, 2tabs PO qday -Give one time dose of Fleet enema (4) Hypothyroidism Current Visit: Yes Status: Acute Code(s): E03.9 - HYPOTHYROIDISM, UNSPECIFIED SNOMED Code(s): 59042704 Comment: -Continue Synthroid -TSH is normal (5) Hypokalemia Current Visit: No Status: Acute Code(s): E87.6 - HYPOKALEMIA SNOMED Code(s ): 64215434 Comment: -Corrected -Continue watchful waiting (6) DVT prophylaxis Current Visit: No Status: Acute Code(s): GJU1832 - SNOMED Code(s): 243289197 Comment: -Change frequency of SQ Heparin to q12H Status and Disposition: -PT eval to facilitate with D/C planning activities -D/C back to [facility] on tomorrow
[2018-03-28] MEDS ORDERED: Docusate CAP* 100 MG PO PRN (15:31)
[2018-03-28] MEDS ORDERED: Senna TAB PO SCH (16:00)
[2018-03-29] MEDS: Omeprazole CAP* 20 MG PO SCH (05:28)
[2018-03-29 06:50] LABS: ABS Basophils 0 10^3/ul (0-0.2); ABS Eosinophils 0.2 10^3/ul (0-0.6); ABS Lymphocytes 1.5 10^3/ul (1.0-4.8); ABS Monocytes 0.8 10^3/ul (0-0.8); ABS Neutrophils 3.9 10^3/ul (1.5-7.7); ABS Nucleated RBC 0 10^3/ul; Eosinophil % 3.1 % (0-6); Hematocrit 37 % (35-47); Hemoglobin 12.1 g/dl (12.0-16.0); Mean Corpuscular HGB Conc 33 g/dl (31-36); Mean Corpuscular Hemoglobin 26 pg (27-31); Mean Corpuscular Volume 80 fL (80-97); Mean Platelet Volume 7.4 um3 (7.4-10.4); Nucleated Red Blood Cells % 0.1; Platelet Count 210 10^3/ul (150-450); Red Blood Count 4.66 10^6/ul (4.00-5.40); Red Cell Distribution Width 16 % (10.5-15); White Blood Count 6.4 10^3/ul (3.5-10.8)
[2018-03-29 08:41] VITALS: BP 154/65
[2018-03-29] MEDS: RIVASTIGMINE 9.5 MG TRANSDERM SCH (09:00)
[2018-03-29] MEDS: Heparin VIAL(*) 5000 UNITS/ML VIAL (FIVE THOUSAND) SUBCUT SCH (09:00)
[2018-03-29] MEDS ORDERED: Docusate CAP* 100 MG PO SCH (09:00)
[2018-03-29] MEDS: Gabapentin CAP(*) 100 MG PO SCH (09:27)
[2018-03-29] MEDS: DOXYcycline IV* 100 MG in NS 0.9% 250 ML* 250 ML IVPB SCH (10:17)
[2018-03-29] MEDS ORDERED: DOXYcycline CAP(*) 100 MG PO SCH (11:00)
--- NOTE | 2018-03-29 11:00 | DCNOTE ---
Subjective Date of Service: 03/29/18 Interval History: Pt reports she "feels fine". She states she is ready to go home. Denies pain. No sob/CP. No cough. Denies fever/chills Objective Active Medications: Acetaminophen (Tylenol Tab*) 650 mg PO Q6H PRN PRN Reason: FEVER/PAIN Docusate Sodium (Colace Cap*) 200 mg PO DAILY PRN PRN Reason: CONSTIPATION Doxycycline Hyclate (Vibramycin Cap(*)) 100 mg PO BID [facility] Gabapentin (Neurontin Cap(*)) 100 mg PO TID [facility] Last Admin: 03/29/18 09:27 Dose: Not Given Heparin Sodium (Porcine) (Heparin Vial(*)) 5,000 units SUBCUT Q12HR [facility] Last Admin: 03/29/18 09:00 Dose: Not Given Melatonin (Melatonin) 3 mg PO BEDTIME PRN; Protocol PRN Reason: Sleep Last Admin: 03/27/18 20:55 Dose: 3 mg Omeprazole (Prilosec Cap*) 20 mg PO DAILY@0600 [facility] Last Admin: 03/29/18 05:28 Dose: Not Given Ondansetron HCl (Zofran Odt Tab*) 4 mg PO Q6H PRN PRN Reason: n/v Rivastigmine (Exelon Patch(Nf)) 1 patch TRANSDERM DAILY [facility] Last Admin: 03/29/18 09:00 Dose: Not Given Vital Signs - 8 hr 03/29/18 03/29/18 03/29/18 03:54 03:56 07:49 Temperature 98.0 F Pulse Rate 56 63 Respiratory 18 15 Rate Blood Pressure 149/79 154/65 (mmHg) O2 Sat by Pulse 98 99 Oximetry 03/29/18 08:00 Temperature Pulse Rate Respiratory 16 Rate Blood Pressure (mmHg) O2 Sat by Pulse Oximetry Oxygen Devices in Use Now: None Appearance: elderly female sitting up in bed in NAD, alert, noted cognitive decline with some noted confusion, easily redirection Eyes: No Scleral Icterus, PERRLA Ears/Nose/Mouth/Throat: NL Teeth, Lips, Gums, Mucous Membranes Moist Neck: NL Appearance and Movements; NL JVP Respiratory: Symmetrical Chest Expansion and Respiratory Effort, Clear to Auscultation Cardiovascular: NL Sounds; No Murmurs; No JVD, RRR, No Edema Abdominal: NL Sounds; No Tenderness; No Distention Extremities: No Edema, No Clubbing, Cyanosis Skin: No Rash or Ulcers, No Nodules or Sclerosis Neurological: Alert and Oriented x 3, NL Sensation, NL Muscle Strength and Tone Lines/Tubes/Other Access: Clean, Dry and Intact Peripheral IV Nutrition: Taking PO's Result Diagrams: 03/29/18 06:33 03/28/18 07:09 Additional Lab and Data: Lab Results 03/26/18 03/26/18 03/26/18 Range/Units 00:05 00:05 00:05 WBC 8.7 (3.5-10.8) 10^3/ul RBC 5.37 (4.00-5.40) 10^6/ul Hgb 14.1 (12.0-16.0) g/dl Hct 42 (35-47) % MCV 79 L (80-97) fL MCH 26 L (27-31) pg MCHC 33 (31-36) g/dl RDW 15 (10.5-15) % Plt Count 262 (150-450) 10^3/ul MPV 7.5 (7.4-10.4) um3 Neut % (Auto) 66.7 (38-83) % Lymph % (Auto) 18.8 L (25-47) % [place] % (Auto) 13.2 H (0-7) % Eos % (Auto) 1.0 (0-6) % Baso % (Auto) 0.3 (0-2) % Absolute Neuts (auto) 5.8 (1.5-7.7) 10^3/ul Absolute Lymphs (auto) 1.6 (1.0-4.8) 10^3/ul Absolute Monos (auto) 1.2 H (0-0.8) 10^3/ul Absolute Eos (auto) 0.1 (0-0.6) 10^3/ul Absolute Basos (auto) 0 (0-0.2) 10^3/ul Absolute Nucleated RBC 0 10^3/ul Nucleated RBC % 0 INR (Anticoag Therapy) (0.77-1.02) Sodium 136 (135-145) mmol/L Potassium 3.2 L (3.5-5.0) mmol/L Chloride 96 L (101-111) mmol/L Carbon Dioxide 31 (22-32) mmol/L Anion Gap 9 (2-11) mmol/L BUN 15 (6-24) mg/dL Creatinine 0.51 (0.51-0.95) mg/dL Est GFR ( Amer) 138.7 (>60) Est GFR (Non-Af Amer) 114.6 (>60) BUN/Creatinine Ratio 29.4 H (8-20) Glucose 118 H (70-100) mg/dL Lactic Acid 1.0 (0.5-2.0) mmol/L Calcium 9.9 (8.6-10.3) mg/dL Total Bilirubin 1.00 (0.2-1.0) mg/dL AST 16 (13-39) U/L ALT 8 (7-52) U/L Alkaline Phosphatase 83 (34-104) U/L Troponin I 0.01 (<0.04) ng/mL Total Protein 7.3 (6.4-8.9) g/dL Albumin 3.8 (3.2-5.2) g/dL Globulin 3.5 (2-4) g/dL Albumin/Globulin Ratio 1.1 (1-3) TSH 0.52 (0.34-5.60) mcIU/mL Urine Color Urine Appearance Urine pH (5-9) Ur Specific [place] (1.010-1.030) Urine Protein (Negative) Urine Ketones (Negative) Urine Blood (Negative) Urine Nitrate (Negative) Urine Bilirubin (Negative) Urine Urobilinogen (Negative) Ur Leukocyte Esterase (Negative) Urine WBC (Auto) (Absent) Urine RBC (Auto) (Absent) Urine Bacteria (Absent) Urine Glucose (Negative) Urine Ascorbic Acid (Negative) 03/26/18 03/26/18 Range/Units 00:05 00:33 WBC (3.5-10.8) 10^3/ul RBC (4.00-5.40) 10^6/ul Hgb (12.0-16.0) g/dl Hct (35-47) % MCV (80-97) fL MCH (27-31) pg MCHC (31-36) g/dl RDW (10.5-15) % Plt Count (150-450) 10^3/ul MPV (7.4-10.4) um3 Neut % (Auto) (38-83) % Lymph % (Auto) (25-47) % [place] % (Auto) (0-7) % Eos % (Auto) (0-6) % Baso % (Auto) (0-2) % Absolute Neuts (auto) (1.5-7.7) 10^3/ul Absolute Lymphs (auto) (1.0-4.8) 10^3/ul Absolute Monos (auto) (0-0.8) 10^3/ul Absolute Eos (auto) (0-0.6) 10^3/ul Absolute Basos (auto) (0-0.2) 10^3/ul Absolute Nucleated RBC 10^3/ul Nucleated RBC % INR (Anticoag Therapy) 1.04 H (0.77-1.02) Sodium (135-145) mmol/L Potassium (3.5-5.0) mmol/L Chloride (101-111) mmol/L Carbon Dioxide (22-32) mmol/L Anion Gap (2-11) mmol/L BUN (6-24) mg/dL Creatinine (0.51-0.95) mg/dL Est GFR ( Amer) (>60) Est GFR (Non-Af Amer) (>60) BUN/Creatinine Ratio (8-20) Glucose (70-100) mg/dL Lactic Acid (0.5-2.0) mmol/L Calcium (8.6-10.3) mg/dL Total Bilirubin (0.2-1.0) mg/dL AST (13-39) U/L ALT (7-52) U/L Alkaline Phosphatase (34-104) U/L Troponin I (<0.04) ng/mL Total Protein (6.4-8.9) g/dL Albumin (3.2-5.2) g/dL Globulin (2-4) g/dL Albumin/Globulin Ratio (1-3) TSH (0.34-5.60) mcIU/mL Urine Color Valorie Urine Appearance Turbid Urine pH 5.0 (5-9) Ur Specific [place] 1.016 (1.010-1.030) Urine Protein 2+(100 mg/dl) A (Negative) Urine Ketones Negative (Negative) Urine Blood 1+ A (Negative) Urine Nitrate Positive A (Negative) Urine Bilirubin Negative (Negative) Urine Urobilinogen Positive A (Negative) Ur Leukocyte Esterase 2+ A (Negative) Urine WBC (Auto) 3+(>20/hpf) A (Absent) Urine RBC (Auto) 3+(>10/hpf) A (Absent) Urine Bacteria Absent (Absent) Urine Glucose Negative (Negative) Urine Ascorbic Acid * A (Negative) Microbiology and Other Data: Microbiology 03/26/18 00:33 Urine Culture - Preliminary Urine Escherichia Coli 03/26/18 00:33 Aerobic Blood Culture - Preliminary Blood Venous No Growth Day 1 Anaerobic Blood Culture - Preliminary No Growth Day 1 03/26/18 00:05 Aerobic Blood Culture - Preliminary Blood Venous No Growth Day 1 Anaerobic Blood Culture - Preliminary No Growth Day 1 03/26/18 14:30 Nasal Screen MRSA (PCR) - Final Nasal Mrsa Not Detected Assess/Plan/Problems-Billing Assessment: - Patient Problems (1) E. coli UTI SNOMED Code(s): 222600684 Comment: -Last day of Doxycycline tonight - Doing well (2) Constipation Comment: -improved (3) Dementia with behavioral disturbance Comment: - improved -Likely exacerbated by garcia-sensitive E. coli UTI -Continue Gabapentin and Exelon patch; pt has history of dementia and will continue to re-direct (4) Hypothyroidism Comment: -Continue Synthroid -TSH is normal (5) HTN (hypertension) Comment: controlled cont HCTZ (6) Hypothyroidism Comment: TSH 0.4 Continue levothyroxine. (7) DVT prophylaxis Comment: -Change frequency of SQ Heparin to q12H Status and Disposition: -PT eval to facilitate with D/C planning activities -D/C back to [place] on today
--- NOTE | 2018-03-29 12:40 | DS ---
CC: Dr. Garvin* DISCHARGE SUMMARY: DATE OF ADMISSION: 03/26/18 DATE OF DISCHARGE: 03/29/18 PROVIDER: Tino Woodruff NP ATTENDING PHYSICIAN: Dr. Larsen* (report dictated by Tino Woodruff NP) PRIMARY CARE PROVIDER: Dr. Garvin. DISCHARGE DIAGNOSIS: Increased confusion thought to be secondary to urinary tract infection, which grew Escherichia coli. SECONDARY DIAGNOSES: 1. Advanced dementia. 2. Hypothyroidism. 3. Hypertension. HISTORY OF PRESENT ILLNESS AND HOSPITAL COURSE: Please see history and physical by Dr. Thompson for full admission details, but in summary, this is an 83-year-old female, who currently resides at [place], who presented to the emergency department on 03/26/18 with concern by the staff reporting increased confusion and combativeness, in which she was found to have a urinary tract infection and was admitted to the hospitalist service and started on IV antibiotics initially with levofloxacin, but this was thought to increase her confusion and she was switched to doxycycline. The patient did not have any signs of sepsis and she remained hemodynamically stable throughout the hospitalization. She had no leukocytosis or lactic acidosis. Today, she is stable for discharge back to [place]. She will require 1 last dose of doxycycline this evening around 10 to 11 p.m. The patient throughout the hospitalization has had intermittent confusion, but seems to be more towards her baseline and has been easily redirected. E. coli urinary tract infection, which is sensitive to doxycycline. The patient 's blood cultures have been negative with no growth day 3. DISCHARGE MEDICATIONS: New medication: Doxycycline 100 mg p.o. x1 more dose at 10 p.m. this evening, then stop. Continue home medications: 1. Synthroid 125 mcg p.o. daily. 2. Hydrochlorothiazide 12.5 mg p.o. daily. 3. Aspirin 81 mg p.o. daily. 4. Hydrocortisone 1% cream topical b.i.d. p.r.n. DISCHARGE PLANS: 1. The patient is to follow up with Dr. Garvin this week for close followup. 2. The patient is stable for discharge back to [place]. Again, she is to have one last dose of doxycycline this evening, then should be finished with her course of antibiotics. TIME SPENT: Approximately 60 minutes was spent on this discharge. TINO WOODRUFF, HAND QUILTER [id number]/[facility] #: [id number] [facility]
== END 2018-03-29 12:45 | DRG 690 ==
LOC: ED 22:53 → MED 03-26 04:24 → OBSVTOIN 03-26 12:30
PROVIDERS: ADMIT Hospitalist; ATTEND Internal Medicine
DX: N39.0 Urinary tract infection, site not specified (principal); F03.91 Unspecified dementia, unspecified severity, with behavioral disturbance; B96.20 Unspecified Escherichia coli [E. coli] as the cause of diseases classified elsewhere; E03.9 Hypothyroidism, unspecified; I10 Essential (primary) hypertension; I77.9 Disorder of arteries and arterioles, unspecified; F32.9 Major depressive disorder, single episode, unspecified; M19.90 Unspecified osteoarthritis, unspecified site; Z96.651 Presence of right artificial knee joint; Z96.641 Presence of right artificial hip joint; K44.9 Diaphragmatic hernia without obstruction or gangrene; Z66 Do not resuscitate; E87.6 Hypokalemia; Z88.0 Allergy status to penicillin; Z86.73 Personal history of transient ischemic attack (TIA), and cerebral infarction without residual deficits; Z86.14 Personal history of Methicillin resistant Staphylococcus aureus infection; Z80.3 Family history of malignant neoplasm of breast; Z79.82 Long term (current) use of aspirin
CPT/HCPCS: 36415; 70450; 71045; 80048; 80053; 81003; 81015; 83605; 83735; 84100; 84443; 84484; 85025; 85610; 85730; 87040; 87077; 87086; 87186; 87641; 93005; 99284; A9270-GY; G8978-GP-CL; G8979-GP-CL; G8980-GP-CL; J1644; J1956

== ENCOUNTER 2021-06-03 09:04 | Inpatient (IN) ==
[2021-06-03 09:50] LABS: ABS Eosinophils 0.1 10^3/ul (0-0.6); ABS Monocytes 0.7 10^3/ul (0-0.8); Eosinophil % 1.8 %; Hematocrit 40 % (35-47); Hemoglobin 12.8 g/dL (12.0-16.0); Lymphocyte % 14.8 %; Mean Corpuscular HGB Conc 32 g/dL (31-36); Mean Corpuscular Hemoglobin 26 pg (27-31); Mean Corpuscular Volume 80 fL (80-97); Mean Platelet Volume 8.2 fL (7.4-10.4); Platelet Count 187 10^3/uL (150-450); Red Cell Distribution Width 16 % (10-15); White Blood Count 6.9 10^3/uL (3.5-10.8)
[2021-06-03 09:57] LABS: INR 1.12 (0.86-1.15)
[2021-06-03 10:02] LABS: Albumin 3.5 g/dL (3.2-5.2); Albumin/Globulin Ratio 1.3 (1-3); Calcium 8.9 mg/dL (8.6-10.3); EGFR African American 88.2 (>60); EGFR Non-African American 72.9 (>60); Globulin 2.7 g/dL (2-4); Total Bilirubin 0.5 mg/dL (0.2-1.0); Total Protein 6.2 g/dL (6.4-8.9)
[2021-06-03 10:03] LABS: Troponin I 0.01 ng/mL (<0.03)
[2021-06-03 12:42] LABS: Troponin I 0.01 ng/mL (<0.03)
[2021-06-03] MEDS ORDERED: Al Hydrox/Mg Hydrox/Simet LIQ 30 ML UDC PO PRN (13:15)
[2021-06-03] MEDS ORDERED: Ondansetron 4 mg VIAL 2 MG/ML 2 ml VIAL IV PRN (13:15)
[2021-06-03] MEDS ORDERED: Iohexol 300 (CONTRAST) 10 ML SDV IV ONE (13:18)
[2021-06-03] MEDS ORDERED: Iohexol 350 (CONTRAST) 500 ML MDV IV ONE (14:27)
[2021-06-03] MEDS ORDERED: Senna TAB 8.6 mg TAB PO PRN (14:52)
[2021-06-03 14:58] LABS: C Reactive Protein 7.95 mg/L (<8.01)
[2021-06-03] MEDS: Enoxaparin 40 MG/0.4 ML SYR SUBCUT SCH (20:01)
[2021-06-04] MEDS ORDERED: NS 0.9% 1000 ml BAG 1,000 ML IV SCH (09:00)
[2021-06-04] MEDS: Polyethylene Glycol 3350 17 GM PACKET PO SCH (11:57)
[2021-06-04] MEDS ORDERED: Perflutren Lipid Microsphere 3 ML VIAL ONE (14:58)
[2021-06-04] MEDS: Enoxaparin 40 MG/0.4 ML SYR SUBCUT SCH (20:01)
[2021-06-05 09:08] LABS: ABS Eosinophils 0.1 10^3/ul (0-0.6); ABS Monocytes 0.7 10^3/ul (0-0.8); ABS Neutrophils 3.1 10^3/ul (1.5-7.7); Eosinophil % 2.2 %; Hematocrit 36 % (35-47); Hemoglobin 11.4 g/dL (12.0-16.0); Lymphocyte % 20.3 %; Mean Corpuscular HGB Conc 32 g/dL (31-36); Mean Corpuscular Hemoglobin 26 pg (27-31); Mean Corpuscular Volume 81 fL (80-97); Mean Platelet Volume 8.1 fL (7.4-10.4); Platelet Count 178 10^3/uL (150-450); Red Blood Count 4.42 10^6 /uL (3.70-4.87); Red Cell Distribution Width 16 % (10-15)
[2021-06-05 09:33] LABS: Calcium 8.5 mg/dL (8.6-10.3); EGFR African American 107.9 (>60); EGFR Non-African American 89.2 (>60); Potassium 3.6 mmol/L (3.5-5.0)
[2021-06-05 09:45] VITALS: BP 136/76
[2021-06-05] MEDS: Polyethylene Glycol 3350 17 GM PACKET PO SCH (10:44)
== END 2021-06-05 12:05 | disposition home or self-care (01) | DRG 313 ==
LOC: ED 09:04 → MEDTELE 13:15
PROVIDERS: ADMIT Internal Medicine; ATTEND Internal Medicine